=== PATIENT | male | born 1935 | race Caucasian/White ===

== ENCOUNTER 2017-11-19 19:34 | Inpatient (IN) | payer OTHER ==
[~2017-11-19] VITALS: Ht 182.9 cm; Wt 10.3 kg
[~2017-11-19 19:34] MED LIST: ALBUAER17 IN; FLUT100I IN; IPRASOL41 NEB; NOR10T PO; SIMV-13 PO; TAMS0.4C36 PO; WARF5TAB71 PO
[2017-11-19 20:10] LABS: Basophils # (auto) 0 uL; Basophils % (auto) 0.3 % (0.0-2.0); Eosinophils # (auto) 0 uL; Eosinophils % (auto) 0.1 % (0.0-7.0); Hematocrit 45.1 % (41.0-53.0); Hemoglobin 14.7 g/dL (13.5-17.5); Lymphocytes # (auto) 0.8 uL; Mean Corpuscular Hemoglobin 27.4 pg (28.0-32.0); Mean Corpuscular Hgb Conc. 32.7 g/dL (32.0-36.0); Mean Corpuscular Volume 83.8 fL (80.0-100.0); Monocytes # (auto) 0.6 uL; Monocytes % (auto) 6.4 % (0.0-12.0); Neutrophils # (auto) 7.7 uL; Neutrophils % (auto) 84.2 % (37.0-80.0); Nucleated Red Blood Cells % 0.1 %; Platelet Count (auto) 221 10^3/uL (140-450); Red Blood Cells 5.38 10^6/uL (4.5-5.90); White Blood Cell 9.1 10^3/uL (4.4-10.8)
[2017-11-19 20:18] LABS: INR 3.24 (0.9-1.15); Partial Thromboplastin Time 36.8 sec (22.64-33.71); Prothrombin Time 35.7 sec (9.37-12.3)
[2017-11-19 20:25] LABS: Albumin 3.3 g/dL (3.4-5.0); BUN/Creatinine Ratio 22.3; Bilirubin, Total 0.3 mg/dL (0.2-1.0); Calcium 8.9 mg/dL (8.5-10.1); Magnesium 2.4 mg/dL (1.6-2.6); Potassium 4.4 mmol/L (3.5-5.1); Total Protein 7.3 g/dL (6.4-8.2)
[2017-11-19] MEDS ORDERED: cefTRIAXone 1GM/10ml IVPUSH 10 ML IV ONE (22:15)
[2017-11-19] MEDS ORDERED: NITROGLYCERIN 0.4 MG SL TAB SL PRN (23:15)
[2017-11-19] MEDS ORDERED: ACETAMINOPHEN 500 MG TAB PO PRN (23:15)
[2017-11-19] MEDS ORDERED: IPRATROPIUM BROM 0.5 MG/2.5ML INH SOL NEB PRN (23:15)
[2017-11-19] MEDS ORDERED: ONDANSETRON HCL 4 MG/2 ML VIAL IV PRN (23:15)
[2017-11-19] MEDS ORDERED: MORPHINE SULFATE 4 MG/ML SYR/VIAL IV PRN (23:15)
[2017-11-19] MEDS ORDERED: HYDROcodone-ACET 5/325MG TAB PO PRN (23:15)
[2017-11-19] MEDS ORDERED: ALBUTEROL SULF 2.5 MG/0.5ML(0.5%) NEB SOLN NEB PRN (23:15)
[2017-11-19] MEDS ORDERED: SIMV-13 PO (23:28)
[2017-11-19] MEDS ORDERED: PANT1INJ3 IV (23:28)
[2017-11-19] MEDS ORDERED: AZIT250T7 PO (23:28)
[2017-11-19] MEDS ORDERED: PRO625LQ GT (23:28)
[2017-11-19] MEDS ORDERED: TAMS0.4C36 PO (23:28)
[2017-11-19] MEDS ORDERED: HYDR-4072 PO (23:28)
[2017-11-19] MEDS ORDERED: WARF1TAB36 PO (23:28)
[2017-11-19] MEDS ORDERED: PRE5T GT (23:28)
[2017-11-19] MEDS ORDERED: AZEL0.1S (23:29)
[2017-11-19] MEDS: ASPirin-EC 81 mg tab PO ONE ×2 (23:30→23:49)
[2017-11-19 23:37] VITALS: BP 182/77
[2017-11-20] VITALS (7 sets, daily range): BP systolic 128–168; BP diastolic 67–89
[2017-11-20] MEDS ORDERED: hydrALAZINE HCL 10 MG TAB PO SCH
[2017-11-20] MEDS ORDERED: hydrALAZINE HCL 10 MG TAB PO PRN (00:30)
[2017-11-20] MEDS ORDERED: cloNIDine 0.1 mg/24hr 7 DAY PATCH TD ONE (02:15)
[2017-11-20] MEDS ORDERED: cloNIDine HCL 0.1 MG TAB PO ONE (02:45)
[2017-11-20 06:57] LABS: Urine Bacteria NONE SEEN /hpf (None Seen); Urine Blood Negative /uL (Negative); Urine Specific Gravity 1.021 (1.001-1.035); Urine WBC 1 /hpf (0 - 3)
[2017-11-20 07:06] LABS: Basophils # (auto) 0 uL; Basophils % (auto) 0.1 % (0.0-2.0); Eosinophils # (auto) 0 uL; Hematocrit 39.2 % (41.0-53.0); Hemoglobin 12.8 g/dL (13.5-17.5); Lymphocytes # (auto) 0.9 uL; Lymphocytes % (auto) 9.6 % (10.0-50.0); Mean Corpuscular Hemoglobin 27.2 pg (28.0-32.0); Mean Corpuscular Hgb Conc. 32.7 g/dL (32.0-36.0); Mean Corpuscular Volume 83.1 fL (80.0-100.0); Monocytes # (auto) 0.6 uL; Monocytes % (auto) 6.4 % (0.0-12.0); Neutrophils # (auto) 7.6 uL; Neutrophils % (auto) 83.9 % (37.0-80.0); Platelet Count (auto) 204 10^3/uL (140-450); Red Blood Cells 4.72 10^6/uL (4.5-5.90); White Blood Cell 9.1 10^3/uL (4.4-10.8)
[2017-11-20 07:13] LABS: INR 3.33 (0.9-1.15); Partial Thromboplastin Time 36.9 sec (22.64-33.71); Prothrombin Time 36.7 sec (9.37-12.3)
[2017-11-20 07:24] LABS: BUN/Creatinine Ratio 25.9; Calcium 8.3 mg/dL (8.5-10.1); Potassium 4.5 mmol/L (3.5-5.1)
[2017-11-20] MEDS ORDERED: ASPirin-EC 81 mg tab PO SCH (10:00)
[2017-11-20] MEDS: AZITHROMYCIN 250 MG TAB PO SCH (11:11)
[2017-11-20] MEDS ORDERED: TAMSULOSIN HYDROCHLORIDE 0.4 MG CAP PO SCH (18:00)
[2017-11-20] MEDS ORDERED: ATORVASTATIN 20 MG TAB PO SCH (22:00)
[2017-11-21 05:00] VITALS: BP 146/79
[2017-11-21 08:00] VITALS: BP 152/87
[2017-11-21 09:23] LABS: Basophils # (auto) 0.1 uL; Basophils % (auto) 0.7 % (0.0-2.0); Eosinophils # (auto) 0.1 uL; Eosinophils % (auto) 1.6 % (0.0-7.0); Hemoglobin 13.5 g/dL (13.5-17.5); Lymphocytes % (auto) 22.6 % (10.0-50.0); Mean Corpuscular Hgb Conc. 32.2 g/dL (32.0-36.0); Mean Corpuscular Volume 83.7 fL (80.0-100.0); Monocytes # (auto) 0.7 uL; Monocytes % (auto) 7.9 % (0.0-12.0); Neutrophils % (auto) 67.2 % (37.0-80.0); Nucleated Red Blood Cells % 0.1 %; Platelet Count (auto) 211 10^3/uL (140-450); Red Blood Cells 5.01 10^6/uL (4.5-5.90); Red Cell Distribution Width 16.6 % (11.8-14.3); White Blood Cell 8.9 10^3/uL (4.4-10.8)
[2017-11-21 09:33] LABS: INR 2.13 (0.9-1.15); Prothrombin Time 23.4 sec (9.37-12.3)
[2017-11-21] MEDS: AZITHROMYCIN 250 MG TAB PO SCH (10:39)
[2017-11-21 10:57] VITALS: BP 152/87
[2017-11-21 12:00] VITALS: BP 148/72
[2017-11-21] MEDS ORDERED: WARFARIN SODIUM 2.5 MG TAB PO ONE (17:00)
== END 2017-11-21 16:45 | disposition home or self-care (01) | DRG 280 ==
LOC: ER 19:35 → TELE 19:36 → CENTRAL 23:42 → TELE-CENTR 11-20 01:44
PROVIDERS: ADMIT Nurse Practitioner Family; ATTEND Family Medicine
DX: I21.4 Non-ST elevation (NSTEMI) myocardial infarction (principal); J18.1 Lobar pneumonia, unspecified organism; J44.0 Chronic obstructive pulmonary disease with (acute) lower respiratory infection; I11.0 Hypertensive heart disease with heart failure; I50.42 Chronic combined systolic (congestive) and diastolic (congestive) heart failure; J44.1 Chronic obstructive pulmonary disease with (acute) exacerbation; Z99.81 Dependence on supplemental oxygen; I35.0 Nonrheumatic aortic (valve) stenosis; E78.00 Pure hypercholesterolemia, unspecified; E78.5 Hyperlipidemia, unspecified; K21.9 Gastro-esophageal reflux disease without esophagitis; N40.0 Benign prostatic hyperplasia without lower urinary tract symptoms; Z79.01 Long term (current) use of anticoagulants; Z79.899 Other long term (current) drug therapy; Z80.42 Family history of malignant neoplasm of prostate; Z86.711 Personal history of pulmonary embolism; Z86.718 Personal history of other venous thrombosis and embolism; Z87.891 Personal history of nicotine dependence; Z82.49 Family history of ischemic heart disease and other diseases of the circulatory system; Z79.2 Long term (current) use of antibiotics
CPT/HCPCS: 36415; 71045; 80048; 80053; 81001; 83605; 83735; 83880; 84484; 85025; 85610; 85730; 87040; 93005; 93306; 94761; 96374

== ENCOUNTER 2018-06-16 09:39 | Inpatient (IN) | payer OTHER ==
[~2018-06-16] VITALS: Ht 182.9 cm; Wt 105.8 kg
[~2018-06-16 09:39] MED LIST changes: +AZEL0.1S; +AZIT250T7 PO; +HYDR-4072 PO; -NOR10T PO; +PANT1INJ3 IV; +PRE5T GT; +PRO625LQ GT; +WARF1TAB36 PO; -WARF5TAB71 PO
[2018-06-16 11:38] LABS: Basophils # (auto) 0.1 uL; Eosinophils # (auto) 0.1 uL; Eosinophils % (auto) 0.6 % (0.0-7.0); Mean Corpuscular Hemoglobin 25.9 pg (28.0-32.0); Mean Corpuscular Volume 81.2 fL (80.0-100.0)
[2018-06-16 11:40] LABS: Basophils % (auto) 1.1 % (0.0-2.0); Hematocrit 47.5 % (41.0-53.0); Hemoglobin 15.2 g/dL (13.5-17.5); Monocytes # (auto) 0.9 uL; Monocytes % (auto) 7.6 % (0.0-12.0); Neutrophils # (auto) 9.4 uL; Neutrophils % (auto) 81.7 % (37.0-80.0); Nucleated Red Blood Cells % 0.1 %; Platelet Count (auto) 230 10^3/uL (140-450); Red Blood Cells 5.85 10^6/uL (4.5-5.90); Red Cell Distribution Width 17.3 % (11.8-14.3); White Blood Cell 11.5 10^3/uL (4.4-10.8)
[2018-06-16 12:06] LABS: Alanine Aminotransferase 14 U/L (16-61); Albumin 3.3 g/dL (3.4-5.0); Alkaline Phosphatase 79 U/L (45-117); Anion Gap 5 (5-15); Aspartate Aminotransferase 12 U/L (15-37); BUN/Creatinine Ratio 14.2; Bilirubin, Total 0.9 mg/dL (0.2-1.0); Blood Urea Nitrogen 18 mg/dL (7-18); Calcium 8.5 mg/dL (8.5-10.1); Carbon Dioxide 25 mmol/L (21-32); Chloride 107 mmol/L (98-107); GFR African American 69 mL/min; GFR Non-African American 57 mL/min; Glucose 125 mg/dL (74-106); Potassium 4.2 mmol/L (3.5-5.1); Sodium 137 mmol/L (136-145); Total Protein 7.5 g/dL (6.4-8.2)
[2018-06-16] MEDS ORDERED: AZITHROMYCIN 500MG/ 250ML 250 ML IV ONE (13:00)
[2018-06-16] MEDS ORDERED: cefTRIAXone 1GM/10ml IVPUSH 10 ML IV ONE (13:00)
[2018-06-16] MEDS ORDERED: PANTOPRAZOLE 40 MG TAB PO ONE (13:00)
[2018-06-16] MEDS ORDERED: predniSONE 5 MG TAB PO ONE (13:00)
[2018-06-16] MEDS ORDERED: ACETAMINOPHEN 325 MG TAB PO PRN (13:15)
[2018-06-16] MEDS ORDERED: NITROGLYCERIN 0.4 MG SL TAB SL PRN (13:15)
[2018-06-16] MEDS ORDERED: MORPHINE SULFATE 4 MG/ML SYR/VIAL IV PRN ×2 (13:15)
[2018-06-16] MEDS ORDERED: ASPirin-EC 81 mg tab PO ONE (13:15)
[2018-06-16] MEDS ORDERED: DOCUSATE SOD 100 MG CAP PO PRN (13:15)
[2018-06-16 13:52] VITALS: BP 153/91
[2018-06-16] MEDS ORDERED: WARF5TAB71 PO (14:35)
[2018-06-16] MEDS: SODIUM CHLOR 0.9% PF (SALINE LOCK) 10ML VIAL/SYR IV SCH ×2 (14:52→22:05)
[2018-06-16 15:30] LABS: INR 2.54 (0.9-1.15); Partial Thromboplastin Time 42.5 sec (23.78-33.04); Prothrombin Time 25.8 sec (9.27-12.13)
[2018-06-16 15:37] LABS: Urine Bacteria NONE SEEN /hpf (None Seen); Urine Blood TRACE /uL (Negative); Urine Mucus FEW (None Seen); Urine Specific Gravity 1.025 (1.001-1.035); Urine WBC 9 /hpf (0 - 3)
[2018-06-16] MEDS ORDERED: WARFARIN SODIUM 5 MG TAB PO ONE (17:00)
[2018-06-16] MEDS: IPRATROPIUM BROM 0.5 MG/2.5ML INH SOL NEB SCH (18:00)
[2018-06-16] MEDS: ALBUTEROL SULF 2.5 MG/0.5ML(0.5%) NEB SOLN NEB SCH (18:00)
[2018-06-16] MEDS: TAMSULOSIN HYDROCHLORIDE 0.4 MG CAP PO SCH (18:20)
[2018-06-16 21:30] VITALS: BP 148/81
[2018-06-16 22:00] VITALS: BP 156/81
[2018-06-16] MEDS: CARVEDILOL 3.125 MG TAB PO SCH (22:04)
[2018-06-16] MEDS: ATORVASTATIN 20 MG TAB PO SCH (22:05)
[2018-06-16] MEDS ORDERED: CARV6.2551 PO (23:05)
[2018-06-16] MEDS ORDERED: ASPI81TA27 PO (23:05)
[2018-06-17] MEDS: ALBUTEROL SULF 2.5 MG/0.5ML(0.5%) NEB SOLN NEB SCH ×5 (00:43→23:57)
[2018-06-17] MEDS: IPRATROPIUM BROM 0.5 MG/2.5ML INH SOL NEB SCH ×5 (00:43→23:57)
[2018-06-17] MEDS: ONDANSETRON HCL 4 MG/2 ML VIAL IV PRN ×2 (04:36→12:11)
[2018-06-17] MEDS: HYDROcodone-ACET 5/325MG TAB PO PRN ×2 (04:46→09:52)
[2018-06-17 05:00] VITALS: BP 135/85
[2018-06-17] MEDS: SODIUM CHLOR 0.9% PF (SALINE LOCK) 10ML VIAL/SYR IV SCH ×3 (05:45→21:50)
[2018-06-17 06:02] LABS: INR 2.78 (0.9-1.15); Prothrombin Time 28.1 sec (9.27-12.13)
[2018-06-17 06:07] LABS: Basophils # (auto) 0 uL; Eosinophils # (auto) 0.1 uL; Hemoglobin 13.3 g/dL (13.5-17.5); Mean Corpuscular Hemoglobin 26.6 pg (28.0-32.0); Monocytes # (auto) 0.9 uL; Neutrophils # (auto) 7.4 uL; White Blood Cell 9.6 10^3/uL (4.4-10.8)
[2018-06-17 06:08] LABS: Albumin 2.5 g/dL (3.4-5.0); BUN/Creatinine Ratio 20.4; Calcium 7.5 mg/dL (8.5-10.1); Potassium 4.2 mmol/L (3.5-5.1)
[2018-06-17 06:09] LABS: Basophils % (auto) 0.4 % (0.0-2.0); Eosinophils % (auto) 0.8 % (0.0-7.0); Hematocrit 40.3 % (41.0-53.0); Lymphocytes # (auto) 1.2 uL; Mean Corpuscular Volume 80.5 fL (80.0-100.0); Monocytes % (auto) 9.8 % (0.0-12.0); Red Cell Distribution Width 17.3 % (11.8-14.3)
[2018-06-17 06:10] LABS: Platelet Count (auto) 190 10^3/uL (140-450)
[2018-06-17 06:11] LABS: Bilirubin, Total 0.6 mg/dL (0.2-1.0); Total Protein 6.1 g/dL (6.4-8.2)
[2018-06-17 09:00] VITALS: BP 181/90
[2018-06-17] MEDS: cloNIDine HCL 0.1 MG TAB PO PRN (09:14)
[2018-06-17] MEDS: cefTRIAXone 1GM/10ml IVPUSH 10 ML IV SCH (09:15)
[2018-06-17] MEDS: predniSONE 5 MG TAB PO SCH (09:37)
[2018-06-17] MEDS: ASPirin-EC 81 mg tab PO SCH (09:37)
[2018-06-17] MEDS: MULTIPLE VITAMIN TAB PO SCH (09:38)
[2018-06-17] MEDS: CARVEDILOL 3.125 MG TAB PO SCH ×2 (09:38→10:38)
[2018-06-17] MEDS: PANTOPRAZOLE 40 MG TAB PO SCH (09:38)
[2018-06-17] MEDS: AZITHROMYCIN 500MG/ 250ML 250 ML IV SCH (09:43)
[2018-06-17] MEDS ORDERED: PATIENTS OWN MEDICATION PO SCH (10:00)
[2018-06-17] MEDS: Ensure Enlive Strawberry 8oz Bottle PO SCH ×2 (12:00→18:00)
[2018-06-17] MEDS: HYDROcodone-ACET 10/325MG TAB PO PRN ×2 (12:06→21:50)
[2018-06-17 13:00] VITALS: BP 148/76
[2018-06-17] MEDS ORDERED: UMEC1AER IN (15:41)
[2018-06-17] MEDS ORDERED: CARV6.2551 PO (15:45)
[2018-06-17] MEDS ORDERED: PANT40T PO (15:54)
[2018-06-17 17:00] VITALS: BP 130/78
[2018-06-17] MEDS ORDERED: WARFARIN SODIUM 5 MG TAB PO ONE (17:00)
[2018-06-17] MEDS: TAMSULOSIN HYDROCHLORIDE 0.4 MG CAP PO SCH (18:12)
[2018-06-17] MEDS: ATORVASTATIN 20 MG TAB PO SCH (21:50)
[2018-06-17 22:00] VITALS: BP 159/89
[2018-06-17] MEDS: TEMAZEPAM 15 MG CAP PO PRN (23:48)
[2018-06-18 05:00] VITALS: BP 150/78
[2018-06-18] MEDS: SODIUM CHLOR 0.9% PF (SALINE LOCK) 10ML VIAL/SYR IV SCH ×3 (05:31→22:00)
[2018-06-18] MEDS: ALBUTEROL SULF 2.5 MG/0.5ML(0.5%) NEB SOLN NEB SCH ×3 (06:20→19:09)
[2018-06-18] MEDS: IPRATROPIUM BROM 0.5 MG/2.5ML INH SOL NEB SCH ×3 (06:20→19:09)
[2018-06-18] MEDS: HYDROcodone-ACET 10/325MG TAB PO PRN ×2 (06:42→11:23)
[2018-06-18 08:00] LABS: Basophils # (auto) 0 uL; Basophils % (auto) 0.6 % (0.0-2.0); Eosinophils # (auto) 0.3 uL; Eosinophils % (auto) 3.7 % (0.0-7.0); Hematocrit 40.8 % (41.0-53.0); Hemoglobin 13.3 g/dL (13.5-17.5); Lymphocytes # (auto) 1.4 uL; Lymphocytes % (auto) 17.7 % (10.0-50.0); Mean Corpuscular Hemoglobin 26.3 pg (28.0-32.0); Mean Corpuscular Hgb Conc. 32.7 g/dL (32.0-36.0); Mean Corpuscular Volume 80.4 fL (80.0-100.0); Monocytes # (auto) 0.8 uL; Monocytes % (auto) 10.2 % (0.0-12.0); Neutrophils # (auto) 5.5 uL; Neutrophils % (auto) 67.8 % (37.0-80.0); Nucleated Red Blood Cells % 0.1 %; Platelet Count (auto) 191 10^3/uL (140-450); Red Blood Cells 5.07 10^6/uL (4.5-5.90); Red Cell Distribution Width 17.4 % (11.8-14.3); White Blood Cell 8.1 10^3/uL (4.4-10.8)
[2018-06-18 08:16] LABS: INR 3.7 (0.9-1.15); Partial Thromboplastin Time 41.3 sec (23.78-33.04); Prothrombin Time 36.8 sec (9.27-12.13)
[2018-06-18 08:26] LABS: BUN/Creatinine Ratio 21.3; Calcium 8.1 mg/dL (8.5-10.1); Potassium 4.2 mmol/L (3.5-5.1)
[2018-06-18 09:00] VITALS: BP 142/71
[2018-06-18] MEDS: MULTIPLE VITAMIN TAB PO SCH (09:53)
[2018-06-18] MEDS: PANTOPRAZOLE 40 MG TAB PO SCH (09:53)
[2018-06-18] MEDS: ASPirin-EC 81 mg tab PO SCH (09:53)
[2018-06-18] MEDS: Ensure Enlive Strawberry 8oz Bottle PO SCH ×3 (09:53→18:00)
[2018-06-18] MEDS: cefTRIAXone 1GM/10ml IVPUSH 10 ML IV SCH (09:53)
[2018-06-18] MEDS: predniSONE 5 MG TAB PO SCH (09:54)
[2018-06-18] MEDS: AZITHROMYCIN 500MG/ 250ML 250 ML IV SCH (09:54)
[2018-06-18] MEDS ORDERED: CARVEDILOL 3.125 MG TAB PO SCH (10:00)
[2018-06-18] MEDS: ONDANSETRON HCL 4 MG/2 ML VIAL IV PRN (12:22)
[2018-06-18 13:00] VITALS: BP_SYST 141; BP_SYST 144; BP_DIAS 71; BP_DIAS 74
[2018-06-18] MEDS ORDERED: LISINOPRIL 5 MG TAB PO ONE (13:30)
[2018-06-18 17:00] VITALS: BP 135/64
[2018-06-18] MEDS: TAMSULOSIN HYDROCHLORIDE 0.4 MG CAP PO SCH (17:56)
[2018-06-18] MEDS: ACETYLCYSTEINE 10 %(100MG/ML) SOL 4ML NEB SCH (19:09)
[2018-06-18 21:55] VITALS: BP 130/71
[2018-06-18] MEDS: ATORVASTATIN 20 MG TAB PO SCH (22:54)
[2018-06-19] MEDS: IPRATROPIUM BROM 0.5 MG/2.5ML INH SOL NEB SCH ×4 (00:27→18:32)
[2018-06-19] MEDS: ALBUTEROL SULF 2.5 MG/0.5ML(0.5%) NEB SOLN NEB SCH ×4 (00:27→18:32)
[2018-06-19] MEDS: ACETYLCYSTEINE 10 %(100MG/ML) SOL 4ML NEB SCH ×4 (00:27→18:33)
[2018-06-19] MEDS: cloNIDine HCL 0.1 MG TAB PO PRN (04:53)
[2018-06-19] MEDS: HYDROcodone-ACET 10/325MG TAB PO PRN ×3 (04:54→22:00)
[2018-06-19 05:00] VITALS: BP 162/84
[2018-06-19 06:47] LABS: Partial Thromboplastin Time 42.4 sec (23.78-33.04); Prothrombin Time 40.4 sec (9.27-12.13)
[2018-06-19 06:52] LABS: INR 4.09 (0.9-1.15)
[2018-06-19 08:00] VITALS: BP 109/73
[2018-06-19 09:00] VITALS: BP 109/73
[2018-06-19] MEDS: SODIUM CHLOR 0.9% PF (SALINE LOCK) 10ML VIAL/SYR IV SCH ×3 (09:57→21:59)
[2018-06-19] MEDS: cefTRIAXone 1GM/10ml IVPUSH 10 ML IV SCH (09:57)
[2018-06-19] MEDS: AZITHROMYCIN 500MG/ 250ML 250 ML IV SCH (09:58)
[2018-06-19] MEDS: Ensure Enlive Strawberry 8oz Bottle PO SCH ×3 (09:58→18:17)
[2018-06-19] MEDS: LISINOPRIL 5 MG TAB PO SCH (09:59)
[2018-06-19] MEDS: PANTOPRAZOLE 40 MG TAB PO SCH (09:59)
[2018-06-19] MEDS: MULTIPLE VITAMIN TAB PO SCH (09:59)
[2018-06-19] MEDS: ASPirin-EC 81 mg tab PO SCH (09:59)
[2018-06-19] MEDS ORDERED: LEVOFLOXACIN 750MG 150 ML IV SCH (10:00)
[2018-06-19] MEDS: predniSONE 5 MG TAB PO SCH (10:08)
[2018-06-19] MEDS ORDERED: MORPHINE SULFATE 4 MG/ML SYR/VIAL IV PRN ×2 (10:45)
[2018-06-19 13:00] VITALS: BP 130/73
[2018-06-19 17:00] VITALS: BP 129/88
[2018-06-19] MEDS: TAMSULOSIN HYDROCHLORIDE 0.4 MG CAP PO SCH (18:17)
[2018-06-19] MEDS: ATORVASTATIN 20 MG TAB PO SCH (21:59)
[2018-06-19 22:00] VITALS: BP 159/77
[2018-06-20] VITALS (7 sets, daily range): BP systolic 127–164; BP diastolic 65–95
[2018-06-20] MEDS: IPRATROPIUM BROM 0.5 MG/2.5ML INH SOL NEB SCH ×4 (00:04→18:51)
[2018-06-20] MEDS: ALBUTEROL SULF 2.5 MG/0.5ML(0.5%) NEB SOLN NEB SCH ×4 (00:04→18:51)
[2018-06-20] MEDS: ACETYLCYSTEINE 10 %(100MG/ML) SOL 4ML NEB SCH ×4 (00:11→18:51)
[2018-06-20] MEDS: TEMAZEPAM 15 MG CAP PO PRN (01:57)
[2018-06-20] MEDS: SODIUM CHLOR 0.9% PF (SALINE LOCK) 10ML VIAL/SYR IV SCH ×3 (05:23→21:09)
[2018-06-20 07:20] LABS: INR 2.43 (0.9-1.15); Partial Thromboplastin Time 39.2 sec (23.78-33.04); Prothrombin Time 24.7 sec (9.27-12.13)
[2018-06-20] MEDS: cefTRIAXone 1GM/10ml IVPUSH 10 ML IV SCH (09:48)
[2018-06-20] MEDS: AZITHROMYCIN 500MG/ 250ML 250 ML IV SCH (09:49)
[2018-06-20] MEDS: Ensure Enlive Strawberry 8oz Bottle PO SCH ×3 (09:49→18:32)
[2018-06-20] MEDS: predniSONE 5 MG TAB PO SCH (09:50)
[2018-06-20] MEDS: LISINOPRIL 5 MG TAB PO SCH (09:50)
[2018-06-20] MEDS: PANTOPRAZOLE 40 MG TAB PO SCH (09:50)
[2018-06-20] MEDS: MULTIPLE VITAMIN TAB PO SCH (09:51)
[2018-06-20] MEDS: ASPirin-EC 81 mg tab PO SCH (09:51)
[2018-06-20] MEDS: HYDROcodone-ACET 10/325MG TAB PO PRN (16:20)
[2018-06-20] MEDS ORDERED: WARFARIN SODIUM 2.5 MG TAB PO ONE (17:00)
[2018-06-20] MEDS: TAMSULOSIN HYDROCHLORIDE 0.4 MG CAP PO SCH (18:32)
[2018-06-20] MEDS: ATORVASTATIN 20 MG TAB PO SCH (21:09)
[2018-06-20] MEDS ORDERED: FLUTICASONE PROP NASAL SPR 0.05 % (50MCG) 16GM EACHNOSTRI SCH (22:00)
[2018-06-21] MEDS: IPRATROPIUM BROM 0.5 MG/2.5ML INH SOL NEB SCH ×4 (00:16→18:26)
[2018-06-21] MEDS: ALBUTEROL SULF 2.5 MG/0.5ML(0.5%) NEB SOLN NEB SCH ×4 (00:17→18:26)
[2018-06-21] MEDS: ACETYLCYSTEINE 10 %(100MG/ML) SOL 4ML NEB SCH ×4 (00:17→18:26)
[2018-06-21 05:45] VITALS: BP 156/96
[2018-06-21] MEDS: SODIUM CHLOR 0.9% PF (SALINE LOCK) 10ML VIAL/SYR IV SCH ×3 (06:03→21:33)
[2018-06-21 07:08] LABS: INR 1.79 (0.9-1.15); Prothrombin Time 18.5 sec (9.27-12.13)
[2018-06-21 08:00] VITALS: BP 179/84
[2018-06-21] MEDS: Ensure Enlive Strawberry 8oz Bottle PO SCH ×3 (08:00→18:04)
[2018-06-21] MEDS: cefTRIAXone 1GM/10ml IVPUSH 10 ML IV SCH (08:43)
[2018-06-21 09:06] VITALS: BP 179/84
[2018-06-21] MEDS: AZITHROMYCIN 500MG/ 250ML 250 ML IV SCH (09:52)
[2018-06-21] MEDS: predniSONE 5 MG TAB PO SCH (09:53)
[2018-06-21] MEDS: PANTOPRAZOLE 40 MG TAB PO SCH (09:53)
[2018-06-21] MEDS: ASPirin-EC 81 mg tab PO SCH (09:53)
[2018-06-21] MEDS: MULTIPLE VITAMIN TAB PO SCH (09:54)
[2018-06-21] MEDS: LISINOPRIL 5 MG TAB PO SCH (09:54)
[2018-06-21] MEDS: cloNIDine HCL 0.1 MG TAB PO PRN (09:55)
[2018-06-21 13:00] VITALS: BP 118/69
[2018-06-21] MEDS: HYDROcodone-ACET 10/325MG TAB PO PRN (16:45)
[2018-06-21 17:00] VITALS: BP 142/92
[2018-06-21] MEDS ORDERED: WARFARIN SODIUM 5 MG TAB PO ONE (17:00)
[2018-06-21] MEDS: TAMSULOSIN HYDROCHLORIDE 0.4 MG CAP PO SCH (17:42)
[2018-06-21] MEDS: FLUTICASONE PROP NASAL SPR 0.05 % (50MCG) 16GM EACHNOSTRI PRN (17:43)
[2018-06-21] MEDS: ATORVASTATIN 20 MG TAB PO SCH (21:32)
[2018-06-21 22:00] VITALS: BP 141/76
[2018-06-22] VITALS (7 sets, daily range): BP systolic 98–156; BP diastolic 61–88
[2018-06-22] MEDS: FLUTICASONE PROP NASAL SPR 0.05 % (50MCG) 16GM EACHNOSTRI PRN ×2 (00:31→19:13)
[2018-06-22] MEDS: IPRATROPIUM BROM 0.5 MG/2.5ML INH SOL NEB SCH ×4 (00:39→18:49)
[2018-06-22] MEDS: ALBUTEROL SULF 2.5 MG/0.5ML(0.5%) NEB SOLN NEB SCH ×4 (00:40→18:49)
[2018-06-22] MEDS: ACETYLCYSTEINE 10 %(100MG/ML) SOL 4ML NEB SCH ×4 (00:40→18:50)
[2018-06-22] MEDS: HYDROcodone-ACET 10/325MG TAB PO PRN ×2 (03:29→11:34)
[2018-06-22] MEDS: SODIUM CHLOR 0.9% PF (SALINE LOCK) 10ML VIAL/SYR IV SCH ×3 (05:17→19:16)
[2018-06-22 06:28] LABS: Basophils # (auto) 0.1 uL; Basophils % (auto) 0.6 % (0.0-2.0); Eosinophils # (auto) 0.2 uL; Eosinophils % (auto) 2.4 % (0.0-7.0); Hemoglobin 12.7 g/dL (13.5-17.5); Mean Corpuscular Hgb Conc. 32.8 g/dL (32.0-36.0); Monocytes # (auto) 0.6 uL; Nucleated Red Blood Cells % 0.1 %; White Blood Cell 8.8 10^3/uL (4.4-10.8)
[2018-06-22 06:32] LABS: Hematocrit 38.8 % (41.0-53.0); Lymphocytes # (auto) 2.1 uL; Lymphocytes % (auto) 23.7 % (10.0-50.0); Mean Corpuscular Hemoglobin 26.5 pg (28.0-32.0); Mean Corpuscular Volume 80.6 fL (80.0-100.0); Monocytes % (auto) 7.1 % (0.0-12.0); Neutrophils # (auto) 5.9 uL; Neutrophils % (auto) 66.2 % (37.0-80.0); Platelet Count (auto) 215 10^3/uL (140-450); Red Blood Cells 4.81 10^6/uL (4.5-5.90); Red Cell Distribution Width 17.4 % (11.8-14.3)
[2018-06-22 06:40] LABS: INR 1.6 (0.9-1.15); Partial Thromboplastin Time 30.1 sec (23.78-33.04); Prothrombin Time 16.7 sec (9.27-12.13)
[2018-06-22 06:47] LABS: Albumin 2.5 g/dL (3.4-5.0); BUN/Creatinine Ratio 28.4; Calcium 8.1 mg/dL (8.5-10.1); Potassium 4.5 mmol/L (3.5-5.1)
[2018-06-22 06:50] LABS: Bilirubin, Total 0.3 mg/dL (0.2-1.0); Total Protein 5.7 g/dL (6.4-8.2)
[2018-06-22] MEDS: Ensure Enlive Strawberry 8oz Bottle PO SCH ×3 (08:55→18:11)
[2018-06-22] MEDS: ASPirin-EC 81 mg tab PO SCH (10:07)
[2018-06-22] MEDS: PANTOPRAZOLE 40 MG TAB PO SCH (10:07)
[2018-06-22] MEDS: MULTIPLE VITAMIN TAB PO SCH (10:07)
[2018-06-22] MEDS: predniSONE 5 MG TAB PO SCH (10:07)
[2018-06-22] MEDS: LISINOPRIL 5 MG TAB PO SCH (10:07)
[2018-06-22] MEDS: cefTRIAXone 1GM/10ml IVPUSH 10 ML IV SCH (10:08)
[2018-06-22] MEDS: AZITHROMYCIN 500MG/ 250ML 250 ML IV SCH (10:10)
[2018-06-22] MEDS ORDERED: WARFARIN SODIUM 2 MG TAB PO ONE (17:00)
[2018-06-22] MEDS: TAMSULOSIN HYDROCHLORIDE 0.4 MG CAP PO SCH (18:10)
[2018-06-22] MEDS: ATORVASTATIN 20 MG TAB PO SCH (19:13)
[2018-06-23] VITALS (9 sets, daily range): BP systolic 147–165; BP diastolic 83–96
[2018-06-23] MEDS: IPRATROPIUM BROM 0.5 MG/2.5ML INH SOL NEB SCH ×4 (00:34→19:34)
[2018-06-23] MEDS: ACETYLCYSTEINE 10 %(100MG/ML) SOL 4ML NEB SCH ×4 (00:34→19:34)
[2018-06-23] MEDS: ALBUTEROL SULF 2.5 MG/0.5ML(0.5%) NEB SOLN NEB SCH ×4 (00:34→19:34)
[2018-06-23] MEDS: SODIUM CHLOR 0.9% PF (SALINE LOCK) 10ML VIAL/SYR IV SCH ×3 (06:28→21:23)
[2018-06-23 06:37] LABS: INR 1.6 (0.9-1.15); Prothrombin Time 16.7 sec (9.27-12.13)
[2018-06-23] MEDS: Ensure Enlive Strawberry 8oz Bottle PO SCH ×3 (08:00→17:12)
[2018-06-23] MEDS: AZITHROMYCIN 500MG/ 250ML 250 ML IV SCH (09:27)
[2018-06-23] MEDS: cefTRIAXone 1GM/10ml IVPUSH 10 ML IV SCH (09:27)
[2018-06-23] MEDS: PANTOPRAZOLE 40 MG TAB PO SCH (09:28)
[2018-06-23] MEDS: ASPirin-EC 81 mg tab PO SCH (09:28)
[2018-06-23] MEDS: MULTIPLE VITAMIN TAB PO SCH (09:28)
[2018-06-23] MEDS: predniSONE 5 MG TAB PO SCH (09:29)
[2018-06-23] MEDS: LISINOPRIL 5 MG TAB PO SCH (09:29)
[2018-06-23 09:53] LABS: Basophils # (auto) 0.1 uL; Mean Corpuscular Volume 80.8 fL (80.0-100.0); Monocytes # (auto) 0.6 uL
[2018-06-23 09:56] LABS: Basophils % (auto) 0.9 % (0.0-2.0); Eosinophils # (auto) 0.3 uL; Hemoglobin 12.8 g/dL (13.5-17.5); Lymphocytes # (auto) 2.1 uL; Lymphocytes % (auto) 23.5 % (10.0-50.0); Mean Corpuscular Hemoglobin 26.5 pg (28.0-32.0); Mean Corpuscular Hgb Conc. 32.8 g/dL (32.0-36.0); Monocytes % (auto) 6.3 % (0.0-12.0); Neutrophils # (auto) 5.8 uL; Neutrophils % (auto) 66.3 % (37.0-80.0); Nucleated Red Blood Cells % 0.1 %; Platelet Count (auto) 219 10^3/uL (140-450); Red Blood Cells 4.83 10^6/uL (4.5-5.90); Red Cell Distribution Width 17.6 % (11.8-14.3); White Blood Cell 8.8 10^3/uL (4.4-10.8)
[2018-06-23 10:09] LABS: Chloride 105 mmol/L (98-107); Potassium 4.3 mmol/L (3.5-5.1); Sodium 141 mmol/L (136-145)
[2018-06-23 10:22] LABS: Albumin 2.4 g/dL (3.4-5.0); Anion Gap 7 (5-15); BUN/Creatinine Ratio 30.2; Blood Urea Nitrogen 35 mg/dL (7-18); Calcium 7.9 mg/dL (8.5-10.1); Carbon Dioxide 29 mmol/L (21-32); GFR African American 77 mL/min; GFR Non-African American 64 mL/min; Glucose 117 mg/dL (74-106)
[2018-06-23 10:35] LABS: Alanine Aminotransferase 25 U/L (16-61); Alkaline Phosphatase 50 U/L (45-117); Aspartate Aminotransferase 12 U/L (15-37); Bilirubin, Total 0.3 mg/dL (0.2-1.0); Total Protein 5.5 g/dL (6.4-8.2)
[2018-06-23] MEDS: HYDROcodone-ACET 10/325MG TAB PO PRN ×2 (11:28→20:05)
[2018-06-23] MEDS ORDERED: WARFARIN SODIUM 2 MG TAB PO ONE (17:00)
[2018-06-23] MEDS: TAMSULOSIN HYDROCHLORIDE 0.4 MG CAP PO SCH (17:23)
[2018-06-23] MEDS: FLUTICASONE PROP NASAL SPR 0.05 % (50MCG) 16GM EACHNOSTRI PRN (17:24)
[2018-06-23] MEDS: ATORVASTATIN 20 MG TAB PO SCH (21:23)
[2018-06-23] MEDS: cloNIDine HCL 0.1 MG TAB PO PRN (21:24)
[2018-06-24] MEDS: ACETYLCYSTEINE 10 %(100MG/ML) SOL 4ML NEB SCH ×2 (00:39→07:05)
[2018-06-24] MEDS: IPRATROPIUM BROM 0.5 MG/2.5ML INH SOL NEB SCH ×2 (00:39→07:05)
[2018-06-24] MEDS: ALBUTEROL SULF 2.5 MG/0.5ML(0.5%) NEB SOLN NEB SCH ×2 (00:39→07:05)
[2018-06-24] MEDS: FLUTICASONE PROP NASAL SPR 0.05 % (50MCG) 16GM EACHNOSTRI PRN (04:02)
[2018-06-24] MEDS: HYDROcodone-ACET 10/325MG TAB PO PRN (04:11)
[2018-06-24 05:07] VITALS: BP 173/78
[2018-06-24] MEDS: SODIUM CHLOR 0.9% PF (SALINE LOCK) 10ML VIAL/SYR IV SCH (06:24)
[2018-06-24] MEDS: cloNIDine HCL 0.1 MG TAB PO PRN (06:38)
[2018-06-24 07:20] LABS: INR 1.92 (0.9-1.15); Partial Thromboplastin Time 30.6 sec (23.78-33.04); Prothrombin Time 19.8 sec (9.27-12.13)
[2018-06-24] MEDS: Ensure Enlive Strawberry 8oz Bottle PO SCH ×2 (07:51→12:00)
[2018-06-24 09:00] VITALS: BP 159/88
[2018-06-24] MEDS: cefTRIAXone 1GM/10ml IVPUSH 10 ML IV SCH (10:23)
[2018-06-24] MEDS: LISINOPRIL 5 MG TAB PO SCH (10:24)
[2018-06-24] MEDS: PANTOPRAZOLE 40 MG TAB PO SCH (10:24)
[2018-06-24] MEDS: predniSONE 5 MG TAB PO SCH (10:25)
[2018-06-24] MEDS: MULTIPLE VITAMIN TAB PO SCH (10:25)
[2018-06-24] MEDS: ASPirin-EC 81 mg tab PO SCH (10:25)
[2018-06-24] MEDS ORDERED: CEPH-37 PO (10:56)
[2018-06-24] MEDS ORDERED: LISI-275 PO (10:56)
[2018-06-24 12:38] VITALS: BP 119/63
[2018-06-24] MEDS ORDERED: WARFARIN SODIUM 2 MG TAB PO ONE (17:00)
== END 2018-06-24 13:45 | disposition home or self-care (01) | DRG 871 ==
LOC: ER 09:39 → TELE 09:40 → TELE-WESTW 18:52
PROVIDERS: ADMIT Internal Medicine; ATTEND Internal Medicine
DX: A41.9 Sepsis, unspecified organism (principal); J18.1 Lobar pneumonia, unspecified organism; J96.20 Acute and chronic respiratory failure, unspecified whether with hypoxia or hypercapnia; J45.901 Unspecified asthma with (acute) exacerbation; J44.1 Chronic obstructive pulmonary disease with (acute) exacerbation; J44.0 Chronic obstructive pulmonary disease with (acute) lower respiratory infection; J98.11 Atelectasis; E44.0 Moderate protein-calorie malnutrition; B96.1 Klebsiella pneumoniae [K. pneumoniae] as the cause of diseases classified elsewhere; I25.2 Old myocardial infarction; N40.0 Benign prostatic hyperplasia without lower urinary tract symptoms; E78.5 Hyperlipidemia, unspecified; K21.9 Gastro-esophageal reflux disease without esophagitis; I70.90 Unspecified atherosclerosis; N18.3 Chronic kidney disease, stage 3 (moderate); D89.9 Disorder involving the immune mechanism, unspecified; T45.515A Adverse effect of anticoagulants, initial encounter; R00.1 Bradycardia, unspecified; I25.10 Atherosclerotic heart disease of native coronary artery without angina pectoris; I12.9 Hypertensive chronic kidney disease with stage 1 through stage 4 chronic kidney disease, or unspecified chronic kidney disease; Z68.31 Body mass index [BMI] 31.0-31.9, adult; Z98.41 Cataract extraction status, right eye; Z98.42 Cataract extraction status, left eye; Z87.891 Personal history of nicotine dependence; Z87.01 Personal history of pneumonia (recurrent); Z85.51 Personal history of malignant neoplasm of bladder; Z90.89 Acquired absence of other organs; Z82.49 Family history of ischemic heart disease and other diseases of the circulatory system; Z86.718 Personal history of other venous thrombosis and embolism; Z86.711 Personal history of pulmonary embolism; Y92.89 Other specified places as the place of occurrence of the external cause
CPT/HCPCS: 36415; 71046; 71250; 80048; 80053; 81001; 83605; 83735; 83880; 84484; 85025; 85610; 85730; 87040; 87070; 87077; 87186; 87205; 93005; 93306; 94640; 94761; 96365; 96366; 96375; A6257; J0696; J2405

== ENCOUNTER → 2018-07-01 | Outpatient (CLI) | payer OTHER ==
[~2018-07-01] MED LIST changes: +ASPI81TA27 PO; -AZEL0.1S; -AZIT250T7 PO; +CARV6.2551 PO; +CEPH-37 PO; -FLUT100I IN; -IPRASOL41 NEB; +LISI-275 PO; -PANT1INJ3 IV; +PANT40T PO; -PRO625LQ GT; +UMEC1AER IN; -WARF1TAB36 PO; +WARF5TAB71 PO
[2018-07-01 11:31] LABS: Urine Bacteria NONE SEEN /hpf (None Seen); Urine Blood Negative /uL (Negative); Urine Specific Gravity 1.018 (1.001-1.035); Urine WBC 3 /hpf (0 - 3)
[2018-07-01 11:38] LABS: Basophils # (auto) 0 uL; Eosinophils # (auto) 0.2 uL; Monocytes # (auto) 0.6 uL; White Blood Cell 8.1 10^3/uL (4.4-10.8)
[2018-07-01 11:40] LABS: Basophils % (auto) 0.6 % (0.0-2.0); Hematocrit 42.1 % (41.0-53.0); Hemoglobin 13.7 g/dL (13.5-17.5); Lymphocytes # (auto) 1.6 uL; Lymphocytes % (auto) 20.1 % (10.0-50.0); Mean Corpuscular Hemoglobin 26.6 pg (28.0-32.0); Mean Corpuscular Hgb Conc. 32.5 g/dL (32.0-36.0); Mean Corpuscular Volume 81.8 fL (80.0-100.0); Monocytes % (auto) 7.3 % (0.0-12.0); Neutrophils # (auto) 5.6 uL; Platelet Count (auto) 182 10^3/uL (140-450); Red Blood Cells 5.14 10^6/uL (4.5-5.90); Red Cell Distribution Width 17.8 % (11.8-14.3)
[2018-07-01 11:55] LABS: INR 2.95 (0.9-1.15); Partial Thromboplastin Time 39.3 sec (23.78-33.04); Prothrombin Time 29.7 sec (9.27-12.13)
[2018-07-01 12:25] LABS: Potassium 4.2 mmol/L (3.5-5.1)
[2018-07-01 12:36] LABS: Albumin 2.8 g/dL (3.4-5.0); BUN/Creatinine Ratio 13.6; Bilirubin, Total 0.6 mg/dL (0.2-1.0); Calcium 8.4 mg/dL (8.5-10.1); Total Protein 6.4 g/dL (6.4-8.2)
== END | disposition home or self-care (01) ==
LOC: LAB 10:36
PROVIDERS: ATTEND Specialist
DX: Z01.812 Encounter for preprocedural laboratory examination (principal); H25.11 Age-related nuclear cataract, right eye; D68.311 Acquired hemophilia
CPT/HCPCS: 36415; 80053; 81001; 85025; 85610; 85730

== ENCOUNTER → 2018-11-17 | Outpatient (CLI) | payer OTHER ==
[2018-11-17 07:40] LABS: Urine Bacteria NONE SEEN /hpf (None Seen); Urine Blood Negative /uL (Negative); Urine Mucus FEW (None Seen); Urine Specific Gravity 1.017 (1.001-1.035); Urine WBC 1 /hpf (0 - 3)
[2018-11-17 07:48] LABS: Basophils # (auto) 0 uL; Basophils % (auto) 0.7 % (0.0-2.0); Eosinophils # (auto) 0.2 uL; Eosinophils % (auto) 3.5 % (0.0-7.0); Hematocrit 42.1 % (41.0-53.0); Hemoglobin 13.8 g/dL (13.5-17.5); Lymphocytes # (auto) 1.9 uL; Lymphocytes % (auto) 26.4 % (10.0-50.0); Mean Corpuscular Hemoglobin 27.2 pg (28.0-32.0); Mean Corpuscular Hgb Conc. 32.8 g/dL (32.0-36.0); Mean Corpuscular Volume 82.8 fL (80.0-100.0); Monocytes # (auto) 0.5 uL; Monocytes % (auto) 6.5 % (0.0-12.0); Neutrophils # (auto) 4.4 uL; Neutrophils % (auto) 62.9 % (37.0-80.0); Platelet Count (auto) 208 10^3/uL (140-450); Red Blood Cells 5.09 10^6/uL (4.5-5.90); Red Cell Distribution Width 15.8 % (11.8-14.3); White Blood Cell 7.1 10^3/uL (4.4-10.8)
[2018-11-17 08:26] LABS: Albumin 2.9 g/dL (3.4-5.0); BUN/Creatinine Ratio 15.8; Potassium 4.8 mmol/L (3.5-5.1)
[2018-11-17 08:29] LABS: Bilirubin, Total 0.5 mg/dL (0.2-1.0); Total Protein 6.6 g/dL (6.4-8.2)
== END | disposition home or self-care (01) ==
LOC: LAB 07:03
PROVIDERS: ATTEND Family Medicine
DX: I48.0 Paroxysmal atrial fibrillation (principal); E78.00 Pure hypercholesterolemia, unspecified; J44.9 Chronic obstructive pulmonary disease, unspecified; I10 Essential (primary) hypertension; K21.9 Gastro-esophageal reflux disease without esophagitis
CPT/HCPCS: 36415; 80053; 80061; 81001; 83036; 85025

== ENCOUNTER 2019-10-23 19:21 | Inpatient (IN) | payer OTHER ==
[~2019-10-23] VITALS: Ht 182.9 cm; Wt 89.8 kg
[~2019-10-23 19:21] MED LIST changes: +ASPI-404 PO; -ASPI81TA27 PO
[2019-10-23 20:28] LABS: Urine Bacteria NONE SEEN /hpf (None Seen); Urine Blood 2+ /uL (Negative); Urine Mucus FEW (None Seen); Urine Specific Gravity 1.019 (1.001-1.035); Urine WBC 1 /hpf (0 - 3)
[2019-10-23 20:49] LABS: Basophils # (auto) 0 uL; Basophils % (auto) 0.6 % (0.0-2.0); Eosinophils # (auto) 0.1 uL; Eosinophils % (auto) 0.9 % (0.0-7.0); Hematocrit 42.3 % (41.0-53.0); Lymphocytes # (auto) 0.6 uL; Lymphocytes % (auto) 7.8 % (10.0-50.0); Mean Corpuscular Hemoglobin 27.3 pg (28.0-32.0); Mean Corpuscular Hgb Conc. 33.2 g/dL (32.0-36.0); Mean Corpuscular Volume 82.3 fL (80.0-100.0); Monocytes # (auto) 0.7 uL; Monocytes % (auto) 8.7 % (0.0-12.0); Neutrophils # (auto) 6.7 uL; Platelet Count (auto) 180 10^3/uL (140-450); Red Blood Cells 5.14 10^6/uL (4.5-5.90); Red Cell Distribution Width 15.9 % (11.8-14.3); White Blood Cell 8.1 10^3/uL (4.4-10.8)
[2019-10-23 21:06] LABS: Albumin 3.2 g/dL (3.4-5.0); Anion Gap 5 (5-15); Blood Urea Nitrogen 21 mg/dL (7-18); Calcium 8.8 mg/dL (8.5-10.1); Carbon Dioxide 28 mmol/L (21-32); Chloride 108 mmol/L (98-107); Glucose 137 mg/dL (74-106); Magnesium 1.9 mg/dL (1.6-2.6); Potassium 4.7 mmol/L (3.5-5.1); Sodium 141 mmol/L (136-145)
[2019-10-23] MEDS ORDERED: SODIUM CHLORIDE 0.9% 1,000 ML IVB ONE (21:09)
[2019-10-23 21:15] LABS: Alanine Aminotransferase 14 U/L (16-61); Alkaline Phosphatase 84 U/L (45-117); Aspartate Aminotransferase 11 U/L (15-37); BUN/Creatinine Ratio 17.5; Bilirubin, Total 0.5 mg/dL (0.2-1.0); GFR African American 74 mL/min; GFR Non-African American 61 mL/min; Total Protein 7.1 g/dL (6.4-8.2)
[2019-10-23] MEDS ORDERED: ACETAMINOPHEN 325 MG TAB PO ONE (21:15)
[2019-10-23] MEDS ORDERED: cefTRIAXone 1GM/50ML D5W 50 ML IV ONE (21:15)
[2019-10-23] MEDS ORDERED: ONDANSETRON HCL 4 MG/2 ML VIAL IV ONE (21:15)
[2019-10-23 21:35] LABS: INR 3.92 (0.9-1.15); Partial Thromboplastin Time 46.5 sec (23.64-32.05)
[2019-10-23] MEDS ORDERED: ALBUTEROL SULF 2.5 MG/0.5ML(0.5%) NEB SOLN NEB ONE (21:45)
[2019-10-23] MEDS ORDERED: IPRATROPIUM BROM 0.5 MG/2.5ML INH SOL NEB ONE (21:45)
[2019-10-23] MEDS ORDERED: MORPHINE SULFATE 4 MG/ML SYR/VIAL IV PRN (22:15)
[2019-10-23] MEDS ORDERED: DOCUSATE SOD 100 MG CAP PO PRN (22:15)
[2019-10-23] MEDS ORDERED: NITROGLYCERIN 0.4 MG SL TAB SL PRN (22:15)
[2019-10-23] MEDS ORDERED: ACETAMINOPHEN 325 MG TAB PO PRN (22:15)
[2019-10-23] MEDS ORDERED: DEXTROSE (50%) 50ML SYRG IV PRN (22:15)
[2019-10-23] MEDS ORDERED: MORPHINE SULF INJ 2 MG/ML SYRINGE 1ML IV PRN (22:15)
[2019-10-23] MEDS ORDERED: AZITHROMYCIN 500MG/ 250ML 250 ML IV SCH (22:30)
[2019-10-23 22:34] VITALS: BP 159/91
[2019-10-23] MEDS: AZITHROMYCIN 500MG/ 250ML 250 ML IV SCH (22:46)
[2019-10-23 23:58] VITALS: BP 136/76
[2019-10-24] MEDS: ACCU-CHEK COMFORT CURVE STRIP VI SCH ×4 (00:05→11:13)
[2019-10-24] MEDS: InsuLIN REG 1unit/0.01ml Soln (100units/ml) SC SCH ×4 (04:00→11:13)
[2019-10-24 05:09] VITALS: BP 154/86
[2019-10-24] MEDS ORDERED: MORPHINE SULF INJ 2 MG/ML SYRINGE 1ML IV PRN (06:45)
[2019-10-24 06:46] LABS: Basophils # (auto) 0 uL; Basophils % (auto) 0.6 % (0.0-2.0); Hemoglobin 12.9 g/dL (13.5-17.5)
[2019-10-24 06:49] LABS: Eosinophils # (auto) 0.1 uL; Eosinophils % (auto) 0.8 % (0.0-7.0); Hematocrit 39.3 % (41.0-53.0); Lymphocytes % (auto) 14.9 % (10.0-50.0); Mean Corpuscular Hemoglobin 27.2 pg (28.0-32.0); Mean Corpuscular Hgb Conc. 32.8 g/dL (32.0-36.0); Mean Corpuscular Volume 82.9 fL (80.0-100.0); Monocytes # (auto) 0.8 uL; Monocytes % (auto) 11.2 % (0.0-12.0); Neutrophils % (auto) 72.5 % (37.0-80.0); Nucleated Red Blood Cells % 0.1 %; Platelet Count (auto) 154 10^3/uL (140-450); Red Blood Cells 4.75 10^6/uL (4.5-5.90); Red Cell Distribution Width 15.6 % (11.8-14.3); White Blood Cell 6.9 10^3/uL (4.4-10.8)
[2019-10-24 07:06] LABS: BUN/Creatinine Ratio 19.2; Calcium 8.2 mg/dL (8.5-10.1); Potassium 4.5 mmol/L (3.5-5.1)
[2019-10-24 08:33] VITALS: BP 163/101
[2019-10-24] MEDS ORDERED: FUROSEMIDE 40 MG/4 ML VIAL IV SCH (10:00)
[2019-10-24] MEDS: PANTOPRAZOLE 40 MG TAB PO SCH (10:20)
[2019-10-24] MEDS: CARVEDILOL 3.125 MG TAB PO SCH ×2 (10:20→23:06)
[2019-10-24] MEDS: LISINOPRIL 5 MG TAB PO SCH (10:20)
[2019-10-24] MEDS: ONDANSETRON HCL 4 MG/2 ML VIAL IV PRN (10:25)
[2019-10-24 12:33] VITALS: BP 122/59
[2019-10-24] MEDS: FUROSEMIDE 40 MG/4 ML VIAL IV SCH (17:19)
[2019-10-24] MEDS: TAMSULOSIN HYDROCHLORIDE 0.4 MG CAP PO SCH (17:19)
[2019-10-24 17:31] VITALS: BP 139/78
[2019-10-24] MEDS: HYDROcodone-ACET 5/325MG TAB PO PRN (20:54)
[2019-10-24] MEDS: cefTRIAXone 1GM/50ML D5W 50 ML IV SCH (21:07)
[2019-10-24 22:00] VITALS: BP 141/69
[2019-10-24] MEDS: ATORVASTATIN 20 MG TAB PO SCH (23:05)
[2019-10-24] MEDS: AZITHROMYCIN 500MG/ 250ML 250 ML IV SCH (23:06)
[2019-10-25] MEDS: ONDANSETRON HCL 4 MG/2 ML VIAL IV PRN (04:14)
[2019-10-25 05:00] VITALS: BP 156/83
[2019-10-25] MEDS: FUROSEMIDE 40 MG/4 ML VIAL IV SCH ×2 (06:17→17:58)
[2019-10-25 08:00] VITALS: BP 123/76
[2019-10-25] MEDS: CARVEDILOL 3.125 MG TAB PO SCH ×2 (09:27→22:21)
[2019-10-25] MEDS: PANTOPRAZOLE 40 MG TAB PO SCH (09:28)
[2019-10-25] MEDS: LISINOPRIL 5 MG TAB PO SCH (09:28)
[2019-10-25] MEDS: POTASSIUM CHL 20 Meq TABLET PO SCH (09:28)
[2019-10-25] MEDS ORDERED: MAGNESIUM OXIDE 400 MG TAB PO ONE (10:45)
[2019-10-25] MEDS ORDERED: METOPROLOL TARTRATE 50 MG TAB PO ONE (11:15)
[2019-10-25 12:00] VITALS: BP 140/63
[2019-10-25 12:48] LABS: INR 2.18 (0.9-1.15); Partial Thromboplastin Time 37.3 sec (23.64-32.05)
[2019-10-25 17:00] VITALS: BP 126/55
[2019-10-25] MEDS ORDERED: WARFARIN SODIUM 5 MG TAB PO ONE (17:00)
[2019-10-25] MEDS: TAMSULOSIN HYDROCHLORIDE 0.4 MG CAP PO SCH (17:58)
[2019-10-25] MEDS: cefTRIAXone 1GM/50ML D5W 50 ML IV SCH (20:53)
[2019-10-25 22:00] VITALS: BP 139/79
[2019-10-25] MEDS: AZITHROMYCIN 250 MG TAB PO SCH (22:19)
[2019-10-25] MEDS: ATORVASTATIN 20 MG TAB PO SCH (22:20)
[2019-10-25] MEDS: METOPROLOL TARTRATE 50 MG TAB PO SCH (22:20)
[2019-10-26 04:46] VITALS: BP 121/68
[2019-10-26 06:26] LABS: INR 2.06 (0.9-1.15)
[2019-10-26 06:31] LABS: Basophils # (auto) 0 uL; Basophils % (auto) 0.4 % (0.0-2.0); Eosinophils # (auto) 0 uL; Hematocrit 41.7 % (41.0-53.0); Hemoglobin 13.7 g/dL (13.5-17.5); Lymphocytes # (auto) 0.9 uL; Lymphocytes % (auto) 17.6 % (10.0-50.0); Mean Corpuscular Hgb Conc. 32.9 g/dL (32.0-36.0); Mean Corpuscular Volume 82.3 fL (80.0-100.0); Monocytes # (auto) 0.8 uL; Monocytes % (auto) 15.3 % (0.0-12.0); Neutrophils # (auto) 3.3 uL; Neutrophils % (auto) 66.7 % (37.0-80.0); Nucleated Red Blood Cells % 0.1 %; Platelet Count (auto) 139 10^3/uL (140-450); Red Blood Cells 5.07 10^6/uL (4.5-5.90); Red Cell Distribution Width 15.2 % (11.8-14.3)
[2019-10-26] MEDS: FUROSEMIDE 40 MG/4 ML VIAL IV SCH ×2 (07:03→18:00)
[2019-10-26 08:00] VITALS: BP 113/80
[2019-10-26] MEDS: ALBUTEROL SULF 2.5 MG/0.5ML(0.5%) NEB SOLN NEB PRN (08:59)
[2019-10-26] MEDS: IPRATROPIUM BROM 0.5 MG/2.5ML INH SOL NEB PRN (08:59)
[2019-10-26] MEDS: PANTOPRAZOLE 40 MG TAB PO SCH (10:46)
[2019-10-26] MEDS: POTASSIUM CHL 20 Meq TABLET PO SCH (10:50)
[2019-10-26] MEDS: LISINOPRIL 5 MG TAB PO SCH (10:50)
[2019-10-26] MEDS: METOPROLOL TARTRATE 50 MG TAB PO SCH ×2 (10:52→21:40)
[2019-10-26] MEDS: CARVEDILOL 3.125 MG TAB PO SCH ×2 (10:52→21:40)
[2019-10-26 12:00] VITALS: BP 109/65
[2019-10-26 17:00] VITALS: BP 121/60
[2019-10-26] MEDS ORDERED: WARFARIN SODIUM 5 MG TAB PO ONE (17:00)
[2019-10-26] MEDS: TAMSULOSIN HYDROCHLORIDE 0.4 MG CAP PO SCH (18:00)
[2019-10-26] MEDS: ATORVASTATIN 20 MG TAB PO SCH (21:35)
[2019-10-26] MEDS: cefTRIAXone 1GM/50ML D5W 50 ML IV SCH (21:36)
[2019-10-26 21:43] VITALS: BP 106/63
[2019-10-26] MEDS: AZITHROMYCIN 250 MG TAB PO SCH (22:48)
[2019-10-26] MEDS: HYDROcodone-ACET 5/325MG TAB PO PRN (22:49)
[2019-10-26 23:06] VITALS: BP 106/63
[2019-10-27 05:00] VITALS: BP 102/54
[2019-10-27 06:01] LABS: INR 2.54 (0.9-1.15); Partial Thromboplastin Time 41.9 sec (23.64-32.05)
[2019-10-27] MEDS: FUROSEMIDE 40 MG/4 ML VIAL IV SCH ×2 (06:35→17:22)
[2019-10-27 09:30] VITALS: BP 124/76
[2019-10-27] MEDS: POTASSIUM CHL 20 Meq TABLET PO SCH (09:46)
[2019-10-27] MEDS: METOPROLOL TARTRATE 50 MG TAB PO SCH ×2 (09:46→21:37)
[2019-10-27] MEDS: CARVEDILOL 3.125 MG TAB PO SCH ×2 (09:46→21:36)
[2019-10-27] MEDS: LISINOPRIL 5 MG TAB PO SCH (09:47)
[2019-10-27] MEDS: PANTOPRAZOLE 40 MG TAB PO SCH (09:47)
[2019-10-27 12:31] VITALS: BP 104/64
[2019-10-27] MEDS: ALBUTEROL SULF 2.5 MG/0.5ML(0.5%) NEB SOLN NEB PRN ×2 (15:24→19:44)
[2019-10-27] MEDS: IPRATROPIUM BROM 0.5 MG/2.5ML INH SOL NEB PRN ×2 (15:24→19:44)
[2019-10-27 16:39] VITALS: BP 106/80
[2019-10-27] MEDS ORDERED: WARFARIN SODIUM 2.5 MG TAB PO ONE (17:00)
[2019-10-27] MEDS: TAMSULOSIN HYDROCHLORIDE 0.4 MG CAP PO SCH (17:19)
[2019-10-27 21:32] VITALS: BP 100/58
[2019-10-27] MEDS: ATORVASTATIN 20 MG TAB PO SCH (21:36)
[2019-10-27] MEDS: cefTRIAXone 1GM/50ML D5W 50 ML IV SCH (21:36)
[2019-10-27] MEDS: AZITHROMYCIN 250 MG TAB PO SCH (23:39)
[2019-10-28 05:00] VITALS: BP 127/70
[2019-10-28 05:39] LABS: Basophils # (auto) 0 uL; Basophils % (auto) 0.2 % (0.0-2.0); Eosinophils # (auto) 0 uL; Eosinophils % (auto) 0.4 % (0.0-7.0); Hematocrit 41.2 % (41.0-53.0); Hemoglobin 13.7 g/dL (13.5-17.5); Lymphocytes # (auto) 1.1 uL; Lymphocytes % (auto) 21.8 % (10.0-50.0); Mean Corpuscular Hgb Conc. 33.2 g/dL (32.0-36.0); Mean Corpuscular Volume 81.5 fL (80.0-100.0); Monocytes # (auto) 0.5 uL; Neutrophils # (auto) 3.2 uL; Neutrophils % (auto) 66.6 % (37.0-80.0); Nucleated Red Blood Cells % 0.1 %; Platelet Count (auto) 120 10^3/uL (140-450); Red Blood Cells 5.06 10^6/uL (4.5-5.90); Red Cell Distribution Width 15.5 % (11.8-14.3); White Blood Cell 4.9 10^3/uL (4.4-10.8)
[2019-10-28 05:59] LABS: INR 2.8 (0.9-1.15); Partial Thromboplastin Time 43.6 sec (23.64-32.05)
[2019-10-28] MEDS: FUROSEMIDE 40 MG/4 ML VIAL IV SCH (06:03)
[2019-10-28] MEDS: IPRATROPIUM BROM 0.5 MG/2.5ML INH SOL NEB PRN ×2 (06:22→11:20)
[2019-10-28] MEDS: ALBUTEROL SULF 2.5 MG/0.5ML(0.5%) NEB SOLN NEB PRN ×2 (06:22→11:20)
[2019-10-28 09:00] VITALS: BP 103/52
[2019-10-28] MEDS: PANTOPRAZOLE 40 MG TAB PO SCH (10:54)
[2019-10-28] MEDS: POTASSIUM CHL 20 Meq TABLET PO SCH (10:54)
[2019-10-28] MEDS: METOPROLOL TARTRATE 50 MG TAB PO SCH (10:56)
[2019-10-28] MEDS: LISINOPRIL 5 MG TAB PO SCH (10:57)
[2019-10-28] MEDS: CARVEDILOL 3.125 MG TAB PO SCH (10:58)
[2019-10-28 11:09] VITALS: BP 97/51
[2019-10-28 12:30] VITALS: BP 61/43
== END 2019-10-28 13:30 | disposition home or self-care (01) | DRG 291 ==
LOC: ER 19:22 → TELE 19:23 → TELE-WESTW 23:08
PROVIDERS: ADMIT Hospitalist; ATTEND Family Medicine
DX: I11.0 Hypertensive heart disease with heart failure (principal); J18.9 Pneumonia, unspecified organism; J44.1 Chronic obstructive pulmonary disease with (acute) exacerbation; J44.0 Chronic obstructive pulmonary disease with (acute) lower respiratory infection; I50.43 Acute on chronic combined systolic (congestive) and diastolic (congestive) heart failure; E78.00 Pure hypercholesterolemia, unspecified; E78.5 Hyperlipidemia, unspecified; I48.91 Unspecified atrial fibrillation; N40.0 Benign prostatic hyperplasia without lower urinary tract symptoms; K21.9 Gastro-esophageal reflux disease without esophagitis; R31.0 Gross hematuria; Z79.01 Long term (current) use of anticoagulants; Z85.51 Personal history of malignant neoplasm of bladder; Z82.49 Family history of ischemic heart disease and other diseases of the circulatory system; Z87.891 Personal history of nicotine dependence; Z80.42 Family history of malignant neoplasm of prostate; Z99.81 Dependence on supplemental oxygen; Z86.711 Personal history of pulmonary embolism; Z86.718 Personal history of other venous thrombosis and embolism
CPT/HCPCS: 36415; 71045; 80048; 80053; 81001; 82565; 82962; 83036; 83605; 83735; 83880; 84484; 85025; 85379; 85610; 85730; 87040; 87804; 93005; 93306; 94640; G0378; J0696; J2405

== ENCOUNTER 2019-11-01 11:40 | Inpatient (IN) | payer OTHER ==
[~2019-11-01] VITALS: Ht 182.9 cm; Wt 84.0 kg
[2019-11-01] MEDS ORDERED: methylPREDNISolone SOD SUCC 125 MG/2 ML VL IV ONE (12:30)
[2019-11-01] MEDS ORDERED: ALBUTEROL SULF 2.5 MG/0.5ML(0.5%) NEB SOLN HHN ONE (12:30)
[2019-11-01] MEDS ORDERED: IPRATROPIUM BROM 0.5 MG/2.5ML INH SOL HHN ONE (12:30)
[2019-11-01 13:27] LABS: Basophils # (auto) 0 uL; Hematocrit 48.1 % (41.0-53.0); Hemoglobin 15.6 g/dL (13.5-17.5); Lymphocytes # (auto) 0.8 uL; Lymphocytes % (auto) 9.5 % (10.0-50.0); Monocytes # (auto) 0.6 uL; Nucleated Red Blood Cells % 0.1 %
[2019-11-01 13:29] LABS: Basophils % (auto) 0.3 % (0.0-2.0); Eosinophils # (auto) 0.1 uL; Eosinophils % (auto) 0.6 % (0.0-7.0); Mean Corpuscular Hemoglobin 26.7 pg (28.0-32.0); Mean Corpuscular Hgb Conc. 32.5 g/dL (32.0-36.0); Monocytes % (auto) 7.7 % (0.0-12.0); Neutrophils # (auto) 6.8 uL; Neutrophils % (auto) 81.9 % (37.0-80.0); Platelet Count (auto) 167 10^3/uL (140-450); Red Blood Cells 5.86 10^6/uL (4.5-5.90); Red Cell Distribution Width 15.6 % (11.8-14.3); White Blood Cell 8.3 10^3/uL (4.4-10.8)
[2019-11-01 13:38] LABS: Albumin 3.1 g/dL (3.4-5.0); Calcium 9.1 mg/dL (8.5-10.1); Magnesium 2.2 mg/dL (1.6-2.6); Potassium 4.8 mmol/L (3.5-5.1)
[2019-11-01 13:44] LABS: BUN/Creatinine Ratio 29.7; Bilirubin, Total 0.8 mg/dL (0.2-1.0); Total Protein 7.3 g/dL (6.4-8.2)
[2019-11-01] MEDS ORDERED: ACETAMINOPHEN 500 MG TAB PO PRN (14:45)
[2019-11-01] MEDS ORDERED: SODIUM CHLORIDE 0.9% 1,000 ML IV ONE (14:45)
[2019-11-01] MEDS ORDERED: MORPHINE SULF INJ 2 MG/ML SYRINGE 1ML IV PRN ×2 (14:45)
[2019-11-01] MEDS ORDERED: NITROGLYCERIN 0.4 MG SL TAB SL PRN (14:45)
[2019-11-01] MEDS ORDERED: ONDANSETRON HCL 4 MG/2 ML VIAL IV PRN (14:45)
[2019-11-01 15:30] VITALS: BP 133/86
[2019-11-01 16:52] LABS: Urine Bacteria NONE SEEN /hpf (None Seen); Urine Blood 2+ /uL (Negative); Urine Hyaline Cast FEW /lpf (0 - 2); Urine Mucus FEW (None Seen); Urine Specific Gravity 1.017 (1.001-1.035); Urine WBC 1 /hpf (0 - 3)
[2019-11-01] MEDS: TAMSULOSIN HYDROCHLORIDE 0.4 MG CAP PO SCH (18:16)
[2019-11-01] MEDS: ALBUTEROL SULF 2.5 MG/0.5ML(0.5%) NEB SOLN NEB SCH (18:36)
[2019-11-01] MEDS: IPRATROPIUM BROM 0.5 MG/2.5ML INH SOL NEB SCH (18:36)
[2019-11-01] MEDS: ATORVASTATIN 20 MG TAB PO SCH (21:56)
[2019-11-01] MEDS: CARVEDILOL 3.125 MG TAB PO SCH (21:56)
[2019-11-01] MEDS: HYDROcodone-ACET 5/325MG TAB PO PRN (21:57)
[2019-11-01] MEDS: DOXYCYCLINE 100 MG TAB/CAP PO SCH (21:57)
[2019-11-01 22:00] VITALS: BP 127/81
[2019-11-01 22:11] VITALS: BP 140/90
[2019-11-02 05:43] LABS: Basophils # (auto) 0 uL; Basophils % (auto) 0.1 % (0.0-2.0); Eosinophils # (auto) 0 uL; Hematocrit 40.9 % (41.0-53.0); Hemoglobin 13.4 g/dL (13.5-17.5); Lymphocytes # (auto) 0.4 uL; Lymphocytes % (auto) 12.5 % (10.0-50.0); Mean Corpuscular Hemoglobin 26.8 pg (28.0-32.0); Mean Corpuscular Hgb Conc. 32.6 g/dL (32.0-36.0); Mean Corpuscular Volume 81.9 fL (80.0-100.0); Monocytes # (auto) 0.1 uL; Monocytes % (auto) 3.9 % (0.0-12.0); Neutrophils % (auto) 83.5 % (37.0-80.0); Nucleated Red Blood Cells % 0.1 %; Platelet Count (auto) 123 10^3/uL (140-450); Red Blood Cells 4.99 10^6/uL (4.5-5.90); Red Cell Distribution Width 15.3 % (11.8-14.3); White Blood Cell 3.5 10^3/uL (4.4-10.8)
[2019-11-02] MEDS: ALBUTEROL SULF 2.5 MG/0.5ML(0.5%) NEB SOLN NEB SCH ×3 (05:55→18:31)
[2019-11-02] MEDS: IPRATROPIUM BROM 0.5 MG/2.5ML INH SOL NEB SCH ×3 (05:55→18:31)
[2019-11-02 06:01] LABS: INR 1.66 (0.9-1.15); Partial Thromboplastin Time 29.1 sec (23.64-32.05)
[2019-11-02 06:08] LABS: BUN/Creatinine Ratio 33.6; Calcium 8.4 mg/dL (8.5-10.1); Potassium 4.6 mmol/L (3.5-5.1)
[2019-11-02 09:00] VITALS: BP 153/87
[2019-11-02] MEDS: DOXYCYCLINE 100 MG TAB/CAP PO SCH (09:43)
[2019-11-02] MEDS: LISINOPRIL 5 MG TAB PO SCH (09:44)
[2019-11-02] MEDS: CARVEDILOL 3.125 MG TAB PO SCH ×2 (09:44→21:06)
[2019-11-02] MEDS: FAMOTIDINE 20 MG TAB PO SCH (09:45)
[2019-11-02] MEDS: HYDROcodone-ACET 5/325MG TAB PO PRN (10:31)
[2019-11-02 13:00] VITALS: BP 110/68
[2019-11-02 17:00] VITALS: BP 151/84
[2019-11-02] MEDS: TAMSULOSIN HYDROCHLORIDE 0.4 MG CAP PO SCH (18:26)
[2019-11-02] MEDS: SODIUM CHLORIDE 0.9% 1,000 ML IV SCH (21:05)
[2019-11-02] MEDS: ATORVASTATIN 20 MG TAB PO SCH (21:06)
[2019-11-02] MEDS: ENOXAPARIN SOD 40 MG/0.4 ML SYRINGE SC SCH (21:06)
[2019-11-02 21:21] VITALS: BP 120/75
[2019-11-03 06:17] VITALS: BP 125/78
[2019-11-03 06:19] LABS: Basophils # (auto) 0 uL; Basophils % (auto) 0.2 % (0.0-2.0); Eosinophils # (auto) 0 uL; Hematocrit 36.6 % (41.0-53.0); Hemoglobin 12.3 g/dL (13.5-17.5); Lymphocytes # (auto) 1.7 uL; Lymphocytes % (auto) 21.5 % (10.0-50.0); Mean Corpuscular Hemoglobin 27.3 pg (28.0-32.0); Mean Corpuscular Hgb Conc. 33.6 g/dL (32.0-36.0); Mean Corpuscular Volume 81.1 fL (80.0-100.0); Monocytes # (auto) 0.6 uL; Monocytes % (auto) 8.1 % (0.0-12.0); Neutrophils # (auto) 5.4 uL; Neutrophils % (auto) 70.2 % (37.0-80.0); Nucleated Red Blood Cells % 0.1 %; Platelet Count (auto) 124 10^3/uL (140-450); Red Blood Cells 4.51 10^6/uL (4.5-5.90); Red Cell Distribution Width 15.4 % (11.8-14.3); White Blood Cell 7.7 10^3/uL (4.4-10.8)
[2019-11-03 06:28] LABS: INR 1.4 (0.9-1.15); Partial Thromboplastin Time 30.1 sec (23.64-32.05)
[2019-11-03 06:33] LABS: Potassium 4.5 mmol/L (3.5-5.1)
[2019-11-03 06:52] LABS: BUN/Creatinine Ratio 37.7; Calcium 8.2 mg/dL (8.5-10.1)
[2019-11-03] MEDS: IPRATROPIUM BROM 0.5 MG/2.5ML INH SOL NEB SCH ×3 (07:21→18:51)
[2019-11-03] MEDS: ALBUTEROL SULF 2.5 MG/0.5ML(0.5%) NEB SOLN NEB SCH ×3 (07:21→18:51)
[2019-11-03 09:00] VITALS: BP 153/76
[2019-11-03] MEDS: ENOXAPARIN SOD 40 MG/0.4 ML SYRINGE SC SCH ×2 (09:52→22:00)
[2019-11-03] MEDS: FAMOTIDINE 20 MG TAB PO SCH (09:52)
[2019-11-03] MEDS: LISINOPRIL 5 MG TAB PO SCH (09:52)
[2019-11-03] MEDS: CARVEDILOL 3.125 MG TAB PO SCH ×2 (09:53→21:58)
[2019-11-03] MEDS: HYDROcodone-ACET 5/325MG TAB PO PRN ×2 (11:14→19:51)
[2019-11-03] MEDS: SODIUM CHLORIDE 0.9% 1,000 ML IV SCH (11:20)
[2019-11-03 17:00] VITALS: BP 145/86
[2019-11-03] MEDS: TAMSULOSIN HYDROCHLORIDE 0.4 MG CAP PO SCH (18:29)
[2019-11-03] MEDS: ATORVASTATIN 20 MG TAB PO SCH (22:00)
[2019-11-03 22:29] VITALS: BP 139/73
[2019-11-04] MEDS: SODIUM CHLORIDE 0.9% 1,000 ML IV SCH ×2 (00:40→14:00)
[2019-11-04 05:12] VITALS: BP 157/79
[2019-11-04] MEDS: IPRATROPIUM BROM 0.5 MG/2.5ML INH SOL NEB SCH ×2 (05:55→11:31)
[2019-11-04] MEDS: ALBUTEROL SULF 2.5 MG/0.5ML(0.5%) NEB SOLN NEB SCH ×2 (05:55→11:31)
[2019-11-04 09:00] VITALS: BP 154/101
[2019-11-04] MEDS ORDERED: ANGIOMAX 250 MG VIAL IV ONE (09:02)
[2019-11-04] MEDS ORDERED: fentaNYL CITRATE 100 MCG/2 ML VL ONE (09:02)
[2019-11-04] MEDS ORDERED: MIDAZOLAM HCL 1MG/1ML-2 ML VIAL ONE (09:03)
[2019-11-04] MEDS ORDERED: SODIUM CHL 0.9% 0 ML ONE (09:03)
[2019-11-04] MEDS ORDERED: IOHEXOL 350 MG/ML 100ML IJ ONE (09:13)
[2019-11-04] MEDS ORDERED: ENOXAPARIN SOD 80 MG/0.8ML SYRINGE SC SCH (10:00)
[2019-11-04] MEDS ORDERED: ONDANSETRON HCL 4 MG/2 ML VIAL ONE (10:13)
[2019-11-04] MEDS: FAMOTIDINE 20 MG TAB PO SCH (10:52)
[2019-11-04] MEDS: CARVEDILOL 3.125 MG TAB PO SCH (12:20)
[2019-11-04] MEDS: LISINOPRIL 5 MG TAB PO SCH (12:20)
[2019-11-04 13:00] VITALS: BP 130/69
[2019-11-04] MEDS ORDERED: ONDA-144 PO (13:36)
[2019-11-04 14:14] VITALS: BP 130/69
[2019-12-21] MEDS ORDERED: FURO40TA4 PO (10:38)
== END 2019-11-04 15:00 | disposition home or self-care (01) | DRG 391 ==
LOC: ER 11:40 → TELE 11:41 → TELE-WESTW 21:13
PROVIDERS: ADMIT Nurse Practitioner Acute Care; ATTEND Internal Medicine
PROC: B4101ZZ Fluoroscopy of Abdominal Aorta using Low Osmolar Contrast (ICD-10-PCS; principal; 2019-11-04)
DX: K52.9 Noninfective gastroenteritis and colitis, unspecified (principal); N17.0 Acute kidney failure with tubular necrosis; J44.1 Chronic obstructive pulmonary disease with (acute) exacerbation; E44.1 Mild protein-calorie malnutrition; I13.0 Hypertensive heart and chronic kidney disease with heart failure and stage 1 through stage 4 chronic kidney disease, or unspecified chronic kidney disease; E86.0 Dehydration; K21.9 Gastro-esophageal reflux disease without esophagitis; E78.5 Hyperlipidemia, unspecified; I71.4 Abdominal aortic aneurysm, without rupture; I48.91 Unspecified atrial fibrillation; N40.0 Benign prostatic hyperplasia without lower urinary tract symptoms; N18.3 Chronic kidney disease, stage 3 (moderate); T45.515A Adverse effect of anticoagulants, initial encounter; Z79.01 Long term (current) use of anticoagulants; Z86.79 Personal history of other diseases of the circulatory system; Z79.899 Other long term (current) drug therapy; Z87.891 Personal history of nicotine dependence; Z86.718 Personal history of other venous thrombosis and embolism; Y92.89 Other specified places as the place of occurrence of the external cause; Z68.25 Body mass index [BMI] 25.0-25.9, adult
CPT/HCPCS: 36415; 71045; 71046; 74176; 80048; 80053; 81001; 83605; 83735; 83880; 84484; 85025; 85610; 85730; 86850; 86900; 86901; 87040; 87070; 87077; 87186; 87205; 87804; 93005; 94640; 94644; 96361; 96374; 99152; 99153; 99291; G0378; J2250; J2405

== ENCOUNTER → 2019-11-10 | Outpatient (CLI) | payer OTHER ==
[~2019-11-10] MED LIST changes: -CEPH-37 PO; +ONDA-144 PO; -PRE5T GT
[2019-11-10 10:39] LABS: Albumin 2.3 g/dL (3.4-5.0); Calcium 8.5 mg/dL (8.5-10.1); Potassium 4.3 mmol/L (3.5-5.1)
[2019-11-10 10:43] LABS: BUN/Creatinine Ratio 19.4; Bilirubin, Total 0.4 mg/dL (0.2-1.0); Total Protein 5.8 g/dL (6.4-8.2)
== END | disposition home or self-care (01) ==
LOC: LAB 09:37
PROVIDERS: ATTEND Family Medicine
DX: I12.9 Hypertensive chronic kidney disease with stage 1 through stage 4 chronic kidney disease, or unspecified chronic kidney disease (principal); N18.3 Chronic kidney disease, stage 3 (moderate)
CPT/HCPCS: 36415; 80053

== ENCOUNTER 2019-11-22 10:32 | Emergency (ER) | payer OTHER ==
[~2019-11-22] VITALS: Ht 182.9 cm; Wt 90.7 kg
[2019-11-22] MEDS ORDERED: ONDANSETRON HCL 4 MG/2 ML VIAL IV ONE (11:30)
[2019-11-22 11:37] LABS: Basophils # (auto) 0 10 ^3/uL (0-0.2); Basophils % (auto) 0.5 % (0.0-2.0); Eosinophils # (auto) 0.1 10 ^3/uL (0-0.8); Eosinophils % (auto) 1.6 % (0.0-7.0); Hematocrit 40.5 % (41.0-53.0); Hemoglobin 13.3 g/dL (13.5-17.5); Lymphocytes # (auto) 1.4 10 ^3/uL (0.4-5.4); Lymphocytes % (auto) 19.4 % (10.0-50.0); Mean Corpuscular Hgb Conc. 32.8 g/dL (32.0-36.0); Mean Corpuscular Volume 82.3 fL (80.0-100.0); Monocytes # (auto) 0.6 10 ^3/uL (0-1.3); Neutrophils # (auto) 5.2 10 ^3/uL (1.6-8.6); Neutrophils % (auto) 70.5 % (37.0-80.0); Platelet Count (auto) 190 10^3/uL (140-450); Red Blood Cells 4.92 10^6/uL (4.5-5.90); Red Cell Distribution Width 16.5 % (11.8-14.3); White Blood Cell 7.3 10^3/uL (4.4-10.8)
[2019-11-22 11:54] LABS: Albumin 2.6 g/dL (3.4-5.0); Calcium 8.5 mg/dL (8.5-10.1)
[2019-11-22 11:59] LABS: BUN/Creatinine Ratio 18.6; Bilirubin, Total 0.5 mg/dL (0.2-1.0); Total Protein 6.5 g/dL (6.4-8.2)
[2019-11-22 12:01] VITALS: BP 146/73
[2019-12-21] MEDS ORDERED: FURO40TA4 PO (10:38)
== END 2019-11-22 13:40 | disposition home or self-care (01) ==
LOC: ER 10:32
DX: S09.90XA Unspecified injury of head, initial encounter (principal); F07.81 Postconcussional syndrome; I11.0 Hypertensive heart disease with heart failure; I50.9 Heart failure, unspecified; J44.9 Chronic obstructive pulmonary disease, unspecified; E78.5 Hyperlipidemia, unspecified; I48.91 Unspecified atrial fibrillation; Z90.89 Acquired absence of other organs; Z79.899 Other long term (current) drug therapy; Z87.891 Personal history of nicotine dependence; W19.XXXA Unspecified fall, initial encounter; Y93.89 Activity, other specified; Y99.8 Other external cause status; Y92.59 Other trade areas as the place of occurrence of the external cause
CPT/HCPCS: 36415; 70450; 70480; 71101; 80053; 84484; 85025; 93005; 96374; 99285; J2405

== ENCOUNTER 2019-12-23 07:02 | Inpatient (IN) | payer OTHER ==
[2019-12-21 12:59] LABS: Basophils # (auto) 0.1 10 ^3/uL (0-0.2); Basophils % (auto) 0.5 % (0.0-2.0); Eosinophils # (auto) 0.3 10 ^3/uL (0-0.8); Hemoglobin 13.7 g/dL (13.5-17.5); Lymphocytes # (auto) 1.6 10 ^3/uL (0.4-5.4); Lymphocytes % (auto) 17.7 % (10.0-50.0); Mean Corpuscular Hgb Conc. 32.5 g/dL (32.0-36.0); Mean Corpuscular Volume 83.1 fL (80.0-100.0); Monocytes # (auto) 0.7 10 ^3/uL (0-1.3); Monocytes % (auto) 7.8 % (0.0-12.0); Neutrophils # (auto) 6.6 10 ^3/uL (1.6-8.6); Nucleated Red Blood Cells % 0.1 %; Platelet Count (auto) 208 10^3/uL (140-450); Red Blood Cells 5.05 10^6/uL (4.5-5.90); Red Cell Distribution Width 16.8 % (11.8-14.3); White Blood Cell 9.3 10^3/uL (4.4-10.8)
[2019-12-21 13:12] LABS: INR 1.11 (0.9-1.15); Partial Thromboplastin Time 27.6 sec (23.64-32.05)
[2019-12-21 13:16] LABS: Albumin 3.2 g/dL (3.4-5.0); Calcium 9.5 mg/dL (8.5-10.1); Potassium 3.8 mmol/L (3.5-5.1)
[2019-12-21 13:19] LABS: BUN/Creatinine Ratio 22.9; Bilirubin, Total 0.5 mg/dL (0.2-1.0); Total Protein 7.2 g/dL (6.4-8.2)
[~2019-12-23] VITALS: Ht 182.9 cm; Wt 89.7 kg
[~2019-12-23 07:02] MED LIST changes: -ALBUAER17 IN; +FURO40TA4 PO; -ONDA-144 PO
[2019-12-23] MEDS ORDERED: IOHEXOL 350 MG/ML 100ML IJ ONE ×2 (07:35→11:17)
[2019-12-23] MEDS ORDERED: LIDOCAINE 2%HCL (LOCAL ANESTH.) INJ 20ML MDV ONE ×3 (07:35→09:48)
[2019-12-23] MEDS ORDERED: ATROPINE SULF 1 MG/10ml SYR ONE (09:10)
[2019-12-23] MEDS ORDERED: ANGIOMAX 250 MG VIAL IV ONE ×2 (09:10→11:16)
[2019-12-23] MEDS ORDERED: DOPamine 1600MCG/ML D5W 0 ML IV ONE (09:11)
[2019-12-23] MEDS ORDERED: SODIUM CHL 0.9% 50 ML ONE ×2 (09:11→11:16)
[2019-12-23] MEDS ORDERED: fentaNYL CITRATE 100 MCG/2 ML VL ONE ×2 (09:11→09:36)
[2019-12-23] MEDS ORDERED: MIDAZOLAM HCL 1MG/1ML-2 ML VIAL ONE ×2 (09:11→09:37)
[2019-12-23] MEDS ORDERED: PHENYLEPHRINE HCL 10 MG/ML VL ONE (09:37)
[2019-12-23] MEDS ORDERED: EPINEPHrine HCL 1 MG/10 ML SYRG ONE (09:48)
[2019-12-23] MEDS ORDERED: diphenhdrAMINE HCL 50 MG/1 ML VL ONE (10:40)
[2019-12-23] MEDS ORDERED: PROMETHAZINE HCL 25 MG/ML 1ML ONE (10:42)
[2019-12-23] MEDS ORDERED: ONDANSETRON HCL 4 MG/2 ML VIAL ONE (12:17)
[2019-12-23] MEDS ORDERED: NITROGLYCERIN 0.4 MG SL TAB SL PRN (12:45)
[2019-12-23] MEDS ORDERED: HYDROcodone-ACET 5/325MG TAB PO PRN (12:45)
[2019-12-23] MEDS ORDERED: MORPHINE SULF INJ 2 MG/ML SYRINGE 1ML IV PRN (12:45)
[2019-12-23] MEDS ORDERED: ACETAMINOPHEN 500 MG TAB PO PRN (12:45)
[2019-12-23] MEDS ORDERED: ONDANSETRON HCL 4 MG/2 ML VIAL IV PRN (12:45)
[2019-12-23] MEDS ORDERED: cloNIDine HCL 0.1 MG TAB PO PRN (14:00)
--- NOTE | 2019-12-23 15:30 | NUR ---
Patient arrived on Tele Unit from [employer] Report received from CORRINE Siddiqui. PAT CUELLAR brought to bed 278B following AAA repair and Cardiac catheterization by Dr. Hatfield, patient on portable oxygen. Patient transferred to unit bed using slideboard to keep patient flat, connected to compliance monitor #56, HR 85, Afib rhythm and oxygen at 2L. Catheterization site assessed for any bleeding, redness or swelling in bilateral groin regions. Safeguard device in place and inflated with 50 CC air to the left groin, dressing is clean, dry and intact, surrounding tissue is soft and no s/s of hematoma or bleeding. Safeguard device in place and inflated with 50 CC of air to the R groin and dressing through window shows red blood filling dressing 3/4 of gauze covering, surrounding tissue is soft and no s/s of hematoma or bleeding. Pedal pulses on bilateral legs assessed for positive tissue perfusion, 1 + bilateral dorsalis pedis. Patient instructed on need to notify staff immediately if any pain, burning or wetness to site, and any lower back pain. Patient assessed with metallurgical lab technician RN Chen at bedside. All questions and concerns addressed, patient verbalized understanding of all education and instruction. Patient is A& O x4, no s/s of distress. POC discussed, oriented to room and RN Heavenly, and no visitor policy at this time. Patient educated that he is to lay flat in bed until the RN assesses the patient one last time at 1999. Will relay to NOC shift regarding flat time. Will continue to monitor Q1h and PRN. Vital signs stable at this time.
[2019-12-23 16:14] VITALS: BP 159/91
--- NOTE | 2019-12-23 16:30 | NUR ---
Progress Note Re-assessed patient bilateral groin incision sites. Patient R groin shows gauze through safeguard window is complete with red blood, surrounding tissue is soft, no s/s of hematoma or active bleeding, pulse to the R dorsalis pedis remains same at 1+. Chen RN from semiconductor lab technician also at bedside, came to re-assess patient with this RN, the site looks good at this time, small amount of saturated bleeding is okay, active bleeding and hematoma is what to monitor at this time. Will continue to monitor Q1h and PRN. Patient remaining flat at this time, tolerating well.
[2019-12-23 17:00] VITALS: BP 149/98
--- NOTE | 2019-12-23 17:30 | NUR ---
Monitoring incision sites Left groin dressing remains clean, dry and intact, surrounding tissue soft, no s/s of hematoma or bleeding. Right groin remains the same as last note, full gauze is saturated with red blood through safeguard window, no s/s of hematoma or active bleeding at this time. Patient remains flat at this time, patient having pain in the back, patient states he has arthritis in his lower back and takes norco 10 at home normally. Will medicate per orders. Patient heels floated on pillow.
[2019-12-23] MEDS: TAMSULOSIN HYDROCHLORIDE 0.4 MG CAP PO SCH (17:38)
[2019-12-23] MEDS: CARVEDILOL 3.125 MG TAB PO SCH (17:38)
[2019-12-23] MEDS: HYDROcodone-ACET 10/325MG TAB PO PRN ×2 (17:51→22:17)
--- NOTE | 2019-12-23 19:15 | NUR ---
Report given to Anjali RN, NOC shift Care endorsed to Anjali, patient is calm and resting at this time, no s/s of distress. Endorsed care regarding "flat time" to end at 2000 per Content Editor, and monitor for bleeding to bilateral groin incision sites. All questions answered to RN satisfaction.
--- NOTE | 2019-12-23 19:30 | NUR ---
RECEIVED PATIENT FROM DAY SHIFT RN. PATIENT RESTING IN BED. NO S/S OF DISTRESS NOTED. C/O BACK PAIN AFTER MEDICATION EARLIER. REINFORCED SCHEDULE OF PAIN MANAGEMENT. WILL COME BACK WHEN THE TIME IS DUE AND PER PATIENT REQUESTS. SAFEGUARD ON BL GROIN C/D/I. A LITTER REDNESS NOTED ON BOTH SIDE. AND A LITTER SWOLLEN NOTED ON LEFT SIDE. NO S/S OF BRUISE NOTED FOR NOW. STUBBS CATH IN PLACE DRAINING GRAVITY WITH CLEAN AND YELLOW URINE. POC INSTRUCTED AND ENCOURAGED PATIENT TO CALL FOR STEEL MELTER IF NEEDED. BED IN LOWEST POSITION WITH SIDE RAILS UP X 2. CALL BAE WITHIN REACH. ALARM ON. CONTINUE TO MONITOR FOR CHANGES Q1H AND PRN.
--- NOTE | 2019-12-23 20:52 | NUR ---
INCREASED HOB TO 30 DEGREE. AND REINFORCED PATIENT TO KEEP THIS DEGREE FOR THE REST OF THE NIGHT UNTIL REASSESSED BY CATH NURSE TOMORROW MORNING. JUICES OFFERED PER PATIENT REQUESTED. ENCOURAGED PATIENT TO REPOSITION IN THE BED. PATIENT VERBALIZED UNDERSTANDING. CONTINUE TO MONITOR.
--- NOTE | 2019-12-23 21:35 | NUR ---
NO S/S OF MORE BRUISE NOTED FROM BL GROIN SITES. DEFLATED 10 ML FROM SAFEGUARD. CONTINUE TO MONITOR.
[2019-12-23 22:00] VITALS: BP 107/69
--- NOTE | 2019-12-23 22:04 | NUR ---
PATIENT SITTING AT THE SIDE OF THE BED. NO S/S OF DISTRESS NOTED. DENIED NAUSEA FOR NOW. CONTINUE TO MONITOR. Addendum: 12/23/19 at 2205 by Prachi Howard RN WRONG NOTES
[2019-12-23] MEDS: ATORVASTATIN 20 MG TAB PO SCH (22:16)
--- NOTE | 2019-12-23 22:17 | NUR ---
PATIENT C/O PAIN @ 03/24. MEDICATED PATIENT ORDERED. CONTINUE TO MONITOR.
--- NOTE | 2019-12-23 22:55 | NUR ---
DEFLATED 10 ML FROM SAFEGUARD. PATIENT TOLERATED WELL. NO S/S OF BLEED NOTED. CONTINUE TO MONITOR.
--- NOTE | 2019-12-23 23:17 | NUR ---
REASSESSED PAIN 11/22. PATIENT IS COMFORTABLE. CONTINUE TO MONITOR.
--- NOTE | 2019-12-24 | NUR ---
DEFLATED 10 ML FROM SAFEGUARD. PATIENT TOLERATED WELL. NO S/S OF BLEED NOTED. CONTINUE TO MONITOR.
--- NOTE | 2019-12-24 01:12 | NUR ---
DEFLATED 10 ML FROM SAFEGUARD. PATIENT TOLERATED WELL. NO S/S OF BLEED NOTED. CONTINUE TO MONITOR.
--- NOTE | 2019-12-24 02:23 | NUR ---
DEFLATED 10 ML FROM SAFEGUARD. PATIENT TOLERATED WELL. NO S/S OF BLEED NOTED. CONTINUE TO MONITOR.
[2019-12-24 05:00] VITALS: BP 132/71
--- NOTE | 2019-12-24 06:21 | NUR ---
PATIENT RESTING IN BED WITH EYES CLOSED. NO S/S OF DISTRESS NOTED. DENIED PAIN FOR NOW. SAFEGUARD ON BL GROIN C/D/I. NO NEW S/S OF BLEED NOTED. CONTINUE TO MONITOR.
--- NOTE | 2019-12-24 07:45 | NUR ---
Opening Note Assumed care of patient, he is comfortable at this time, A & O x4, no s/s of distress. POC discussed with patient. Assessed bilateral groin incision sites, the left groin dressing is clean, dry and intact, safeguard deflated at this time, surrounding tissue is soft, no s/s of hematoma, some light brown bruising to the left lateral side of incision site that is soft, no pain to the patient. The right groin dressing shows dark blood through the safeguard window and is deflated, surrounding tissue is soft, no s/s of hematoma or active bleeding. Patient HOB is at 25 degrees at this time. Patient tolerating position well at this time. Bed is in lowest, locked position, call light within reach. Will continue to monitor and maintain position until reassessed by ear mold laboratory technician team or Dr. Hatfield.
[2019-12-24] MEDS: CARVEDILOL 3.125 MG TAB PO SCH ×2 (08:18→17:55)
[2019-12-24] MEDS: HYDROcodone-ACET 10/325MG TAB PO PRN (08:19)
--- NOTE | 2019-12-24 08:45 | NUR ---
Note: Patient groin re-assessment done with primary RN Heavenly at bedside. Left groin appears benign with no signs of hematoma or bleeding. Safe guard was removed and replaced with new gauze and tegaderm dressing. Right groin had dried blood on gauze dressing under safe guard, dressing was removed, site was cleaned and new dressing reapplied. No bleeding or hematoma noted at this time. Patient was sat up to eat breakfast, primary RN will continue to monitor patient and manage groin.
--- NOTE | 2019-12-24 08:50 | NUR ---
Reassessment by Extension Associate of groin sites Chen CASTLE from phlebotomy lab assistant came to reassess the groin sites and change dressings. Was told the "sites look good." Patient was turned, skin checked and sat up patient so he could eat. Patient more comfortable at this time. Okay to get patient up to bedside commode, but patient educated not to strain for a bowel movement. Will continue to monitor Q1h and PRN.
[2019-12-24 09:00] VITALS: BP 123/68
[2019-12-24] MEDS ORDERED: ASPirin-EC 81 mg tab PO SCH (10:00)
[2019-12-24] MEDS ORDERED: LISINOPRIL 5 MG TAB PO SCH (10:00)
[2019-12-24] MEDS ORDERED: PANTOPRAZOLE 40 MG TAB PO SCH (10:00)
[2019-12-24] MEDS ORDERED: UMECLIDINIUM VILANTEROL IN SCH (10:00)
[2019-12-24] MEDS ORDERED: FUROSEMIDE 40 MG TAB PO SCH (10:00)
[2019-12-24 13:00] VITALS: BP 103/51
--- NOTE | 2019-12-24 13:00 | NUR ---
Discontinued IV to R AC. Patient requesting IV to be removed, it is bloody and he would like to be able to use his R arm. Patient has IV access to the L wrist. This RN removed to IV to the R AC and placed pressure dressing. Patient tolerated well.
--- NOTE | 2019-12-24 15:16 | NUR ---
Patient sleeping at this time. No s/s of distress. Will continue to monitor Q1h and PRN.
--- NOTE | 2019-12-24 16:20 | NUR ---
Dr. Hatfield at bedside. Informed Dr. Hatfield patient is requesting to stay one more night, he does not have anyone at home to help him change his dressings or help him up, he would like to stay until the morning. Dr. Hatfield agreed orders received, read back and verified to discharge in the morning and discontinue leo catheter.
[2019-12-24 16:48] VITALS: BP 107/65
--- NOTE | 2019-12-24 17:30 | NUR ---
Incentive Spirometer given to patient per orders. Educated patient to use IS, and placed at bedside.
--- NOTE | 2019-12-24 17:40 | NUR ---
Discontinued Leo Catheter. Using clean technique, removed leo catheter, patient tolerated well, 250 ml of urine output in leo. Urinal placed at bedside for patient use.
--- NOTE | 2019-12-24 17:50 | NUR ---
Assisted patient up to chair to eat. Patient was able to transfer independently with standby assist, patient very fatigued after. Patient was able to sit in chair for 15 minutes and eat very little dinner. Patient transferred back to bed with standby assist. Incision sites are intact, dressings clean and dry no signs and symptoms of bleeding or hematoma at this time. Will continue to monitor. Patient back in bed, at lowest, locked position, call light within reach, bed alarm on.
[2019-12-24] MEDS: TAMSULOSIN HYDROCHLORIDE 0.4 MG CAP PO SCH (17:55)
--- NOTE | 2019-12-24 19:24 | NUR ---
RECEIVED PATIENT FROM DAY SHIFT RN. PATIENT RESTING IN BED. NO S/S OF DISTRESS NOTED.DENIED PAIN FOR NOW. DRESSING BL GROIN C/D/I. NO S/S OF ACTIVE BLEEDING NOTED, BUT BRUISE. PATIENT STATED COMFORTABLE NOW. POC INSTRUCTED AND ENCOURAGED PATIENT TO CALL FOR PIECE CUTTER IF NEEDED. BED IN LOWEST POSITION WITH SIDE RAILS UP X 2. CALL BAE WITHIN REACH. ALARM ON. CONTINUE TO MONITOR FOR CHANGES Q1H AND PRN.
[2019-12-24] MEDS: ATORVASTATIN 20 MG TAB PO SCH (21:51)
--- NOTE | 2019-12-24 21:55 | NUR ---
PATIENT RESTING IN BED WITH EYES CLOSED. NO S/S OF DISTRESS NOTED. CONTINUE TO MONITOR.
[2019-12-24 22:00] VITALS: BP 101/50
--- NOTE | 2019-12-24 22:27 | NUR ---
REPORT GIVEN TO CORRINE IBARRA.
--- NOTE | 2019-12-24 22:28 | NUR ---
Received report from Yara Alba to assume care.
--- NOTE | 2019-12-24 22:30 | NUR ---
Opening Shift Note Assumed care of patient, awake and alert. No S/S of distress/SOB or pain. Instructed on POC and to call for assist PRN, will continue to monitor for changes Q1hr and PRN.
[2019-12-25 05:00] VITALS: BP 145/69
--- NOTE | 2019-12-25 07:00 | NUR ---
Opening Shift Note received report on the patient. Awake lying in bed. Patient shows no signs of distress at this time. Discussed plan for discharge this morning. Bed in lowest position, side rails up x2, and the call light is within reach. Will continue to monitor.
--- NOTE | 2019-12-25 07:26 | NUR ---
Report given to Yara Mckeon, patient is resting no distress, for discharge today.
[2019-12-25 07:30] VITALS: BP 107/65
[2019-12-25 08:09] VITALS: BP 162/70
[2019-12-25 08:32] VITALS: BP 162/70
[2019-12-25] MEDS: CARVEDILOL 3.125 MG TAB PO SCH (08:53)
== END 2019-12-25 09:54 | disposition home or self-care (01) | DRG 300 ==
LOC: CATH 07:02 → TELE-WESTW 15:30
PROVIDERS: ADMIT Internal Medicine Cardiovascular Disease; ATTEND Internal Medicine Cardiovascular Disease
DX: I71.4 Abdominal aortic aneurysm, without rupture (principal); I50.42 Chronic combined systolic (congestive) and diastolic (congestive) heart failure; I11.0 Hypertensive heart disease with heart failure; E66.9 Obesity, unspecified; I25.10 Atherosclerotic heart disease of native coronary artery without angina pectoris; I73.9 Peripheral vascular disease, unspecified; E78.5 Hyperlipidemia, unspecified; J44.9 Chronic obstructive pulmonary disease, unspecified; I48.91 Unspecified atrial fibrillation; Z86.711 Personal history of pulmonary embolism; Z99.81 Dependence on supplemental oxygen; Z79.899 Other long term (current) drug therapy; Z79.82 Long term (current) use of aspirin; Z80.52 Family history of malignant neoplasm of bladder; Z80.42 Family history of malignant neoplasm of prostate
CPT/HCPCS: 36415; 80053; 85025; 85610; 85730; 86850; 86900; 86901; 86920; 93005; 99152; 99153; G0378; J2250; J2405

== ENCOUNTER 2020-02-16 15:42 | Inpatient (IN) | payer OTHER ==
[~2020-02-16] VITALS: Ht 188 cm; Wt 96.6 kg
[2020-02-16] MEDS ORDERED: PROMETHAZINE HCL 25 MG/ML 1ML IV ONE (16:15)
[2020-02-16] MEDS ORDERED: SODIUM CHLORIDE 0.9% 500 ML IVB ONE (17:23)
[2020-02-16 17:43] LABS: Basophils # (auto) 0 10 ^3/uL (0-0.2); Basophils % (auto) 0.3 % (0.0-2.0); Eosinophils # (auto) 0.1 10 ^3/uL (0-0.8); Eosinophils % (auto) 0.5 % (0.0-7.0); Lymphocytes # (auto) 0.9 10 ^3/uL (0.4-5.4); Monocytes # (auto) 0.6 10 ^3/uL (0-1.3); Neutrophils # (auto) 10.4 10 ^3/uL (1.6-8.6)
[2020-02-16 17:46] LABS: Hematocrit 39.8 % (41.0-53.0); Hemoglobin 12.9 g/dL (13.5-17.5); Lymphocytes % (auto) 7.7 % (10.0-50.0); Mean Corpuscular Hemoglobin 27.1 pg (28.0-32.0); Mean Corpuscular Hgb Conc. 32.4 g/dL (32.0-36.0); Mean Corpuscular Volume 83.6 fL (80.0-100.0); Monocytes % (auto) 5.1 % (0.0-12.0); Neutrophils % (auto) 86.4 % (37.0-80.0); Platelet Count (auto) 239 10^3/uL (140-450); Red Blood Cells 4.76 10^6/uL (4.5-5.90); Red Cell Distribution Width 16.8 % (11.8-14.3); White Blood Cell 12.1 10^3/uL (4.4-10.8)
[2020-02-16 17:58] LABS: INR 2.74 (0.9-1.15); Partial Thromboplastin Time 39.8 sec (23.64-32.05)
[2020-02-16 18:00] LABS: Potassium 4.1 mmol/L (3.5-5.1)
[2020-02-16 18:10] LABS: BUN/Creatinine Ratio 22.3; Bilirubin, Total 0.4 mg/dL (0.2-1.0); Calcium 8.9 mg/dL (8.5-10.1); Total Protein 7.2 g/dL (6.4-8.2)
[2020-02-16] MEDS ORDERED: ACETAMINOPHEN 325 MG TAB PO PRN (22:30)
[2020-02-16] MEDS ORDERED: MORPHINE SULF INJ 2 MG/ML SYRINGE 1ML IV PRN (22:30)
[2020-02-16] MEDS ORDERED: TEMAZEPAM 15 MG CAP PO PRN (22:30)
[2020-02-16] MEDS ORDERED: MORPHINE SULFATE 4 MG/ML SYR/VIAL IV PRN (22:30)
[2020-02-16] MEDS ORDERED: NITROGLYCERIN 0.4 MG SL TAB SL PRN (22:30)
[2020-02-16] MEDS ORDERED: ONDANSETRON HCL 4 MG/2 ML VIAL IV PRN (22:30)
[2020-02-16 23:42] LABS: Urine Bacteria MOD /hpf (None Seen); Urine Blood 2+ /uL (Negative); Urine Hyaline Cast FEW /lpf (0 - 2); Urine Specific Gravity 1.016 (1.001-1.035); Urine WBC 233 /hpf (0 - 3); Urine WBC Clumps PRESENT /hpf (None Seen)
[2020-02-17] MEDS ORDERED: cefTRIAXone 1GM/50ML D5W 50 ML IV ONE ×2 (01:15→11:30)
[2020-02-17] MEDS: HYDROcodone-ACET 5/325MG TAB PO PRN ×2 (04:20→19:49)
[2020-02-17] MEDS ORDERED: cloNIDine HCL 0.1 MG TAB PO ONE (05:00)
[2020-02-17 07:03] LABS: Basophils # (auto) 0.1 10 ^3/uL (0-0.2); Basophils % (auto) 0.6 % (0.0-2.0); Eosinophils # (auto) 0.1 10 ^3/uL (0-0.8); Eosinophils % (auto) 0.9 % (0.0-7.0); Hematocrit 37.9 % (41.0-53.0); Hemoglobin 12.6 g/dL (13.5-17.5); Lymphocytes # (auto) 1.3 10 ^3/uL (0.4-5.4); Lymphocytes % (auto) 13.1 % (10.0-50.0); Mean Corpuscular Hemoglobin 27.6 pg (28.0-32.0); Mean Corpuscular Hgb Conc. 33.3 g/dL (32.0-36.0); Mean Corpuscular Volume 82.8 fL (80.0-100.0); Monocytes # (auto) 0.7 10 ^3/uL (0-1.3); Monocytes % (auto) 7.2 % (0.0-12.0); Neutrophils % (auto) 78.2 % (37.0-80.0); Platelet Count (auto) 220 10^3/uL (140-450); Red Blood Cells 4.58 10^6/uL (4.5-5.90); Red Cell Distribution Width 16.8 % (11.8-14.3); White Blood Cell 10.3 10^3/uL (4.4-10.8)
[2020-02-17 07:31] LABS: Calcium 8.6 mg/dL (8.5-10.1); Potassium 4.3 mmol/L (3.5-5.1)
[2020-02-17 07:34] LABS: BUN/Creatinine Ratio 20.8
[2020-02-17] MEDS ORDERED: CARVEDILOL 3.125 MG TAB PO SCH (08:00)
[2020-02-17 09:00] VITALS: BP 86/57
[2020-02-17] MEDS ORDERED: cefTRIAXone 1GM/50ML D5W 50 ML IV SCH (09:00)
[2020-02-17] MEDS: PANTOPRAZOLE 40 MG TAB PO SCH (09:57)
[2020-02-17] MEDS ORDERED: LISINOPRIL 10 MG TAB PO SCH (10:00)
[2020-02-17] MEDS ORDERED: FUROSEMIDE 40 MG TAB PO SCH (10:00)
[2020-02-17] MEDS ORDERED: SODIUM CHLORIDE 0.9% 250 ML IV ONE ×2 (11:30→14:15)
[2020-02-17 11:31] VITALS: BP 86/57
[2020-02-17 13:00] VITALS: BP 73/53
[2020-02-17] MEDS: SODIUM CHLORIDE 0.9% 1,000 ML IV SCH (13:04)
[2020-02-17] MEDS: IPRATROPIUM BROM 0.5 MG/2.5ML INH SOL NEB SCH ×2 (13:21→19:04)
[2020-02-17 14:31] LABS: Basophils # (auto) 0.1 10 ^3/uL (0-0.2); Basophils % (auto) 0.5 % (0.0-2.0); Eosinophils # (auto) 0 10 ^3/uL (0-0.8); Eosinophils % (auto) 0.2 % (0.0-7.0); Hematocrit 39.8 % (41.0-53.0); Hemoglobin 12.6 g/dL (13.5-17.5); Lymphocytes # (auto) 1.1 10 ^3/uL (0.4-5.4); Lymphocytes % (auto) 9.6 % (10.0-50.0); Mean Corpuscular Hgb Conc. 31.6 g/dL (32.0-36.0); Mean Corpuscular Volume 85.5 fL (80.0-100.0); Monocytes # (auto) 0.6 10 ^3/uL (0-1.3); Monocytes % (auto) 5.9 % (0.0-12.0); Neutrophils # (auto) 9.2 10 ^3/uL (1.6-8.6); Neutrophils % (auto) 83.8 % (37.0-80.0); Nucleated Red Blood Cells % 0.1 %; Platelet Count (auto) 221 10^3/uL (140-450); Red Blood Cells 4.66 10^6/uL (4.5-5.90); Red Cell Distribution Width 16.8 % (11.8-14.3)
[2020-02-17 14:51] VITALS: BP 89/57
[2020-02-17] MEDS ORDERED: LISI10TA6 PO (15:32)
[2020-02-17] MEDS ORDERED: ALBUAER3 IN (15:34)
[2020-02-17] MEDS ORDERED: TRIA0.5C10 TOP (15:40)
[2020-02-17] MEDS ORDERED: TRIA0.5O2 TOP (15:44)
[2020-02-17] MEDS ORDERED: AZEL0.1S (15:47)
[2020-02-17 17:00] VITALS: BP 105/68
[2020-02-17] MEDS: CARVEDILOL 3.125 MG TAB PO SCH (18:00)
[2020-02-17] MEDS: TAMSULOSIN HYDROCHLORIDE 0.4 MG CAP PO SCH (18:00)
[2020-02-17] MEDS: ATORVASTATIN 20 MG TAB PO SCH (21:15)
[2020-02-17 22:00] VITALS: BP 99/63
[2020-02-17] MEDS: MORPHINE SULF INJ 2 MG/ML SYRINGE 1ML IV PRN (22:21)
[2020-02-18] MEDS: SODIUM CHLORIDE 0.9% 1,000 ML IV SCH ×2 (00:50→13:40)
[2020-02-18] MEDS: MORPHINE SULF INJ 2 MG/ML SYRINGE 1ML IV PRN ×4 (03:55→23:30)
[2020-02-18 05:00] VITALS: BP 139/99
[2020-02-18] MEDS: IPRATROPIUM BROM 0.5 MG/2.5ML INH SOL NEB SCH ×3 (06:19→18:52)
[2020-02-18 07:37] LABS: Basophils # (auto) 0.1 10 ^3/uL (0-0.2); Basophils % (auto) 0.6 % (0.0-2.0); Eosinophils # (auto) 0.1 10 ^3/uL (0-0.8); Eosinophils % (auto) 1.3 % (0.0-7.0); Hematocrit 39.8 % (41.0-53.0); Hemoglobin 12.8 g/dL (13.5-17.5); Lymphocytes # (auto) 1.3 10 ^3/uL (0.4-5.4); Lymphocytes % (auto) 11.5 % (10.0-50.0); Mean Corpuscular Hemoglobin 27.5 pg (28.0-32.0); Mean Corpuscular Hgb Conc. 32.2 g/dL (32.0-36.0); Mean Corpuscular Volume 85.3 fL (80.0-100.0); Monocytes # (auto) 0.6 10 ^3/uL (0-1.3); Monocytes % (auto) 5.9 % (0.0-12.0); Neutrophils # (auto) 8.8 10 ^3/uL (1.6-8.6); Neutrophils % (auto) 80.7 % (37.0-80.0); Platelet Count (auto) 204 10^3/uL (140-450); Red Blood Cells 4.66 10^6/uL (4.5-5.90); Red Cell Distribution Width 16.8 % (11.8-14.3); White Blood Cell 10.9 10^3/uL (4.4-10.8)
[2020-02-18 07:51] LABS: INR 2.36 (0.9-1.15); Partial Thromboplastin Time 44.4 sec (23.64-32.05)
[2020-02-18 07:55] LABS: BUN/Creatinine Ratio 20.4; Calcium 8.5 mg/dL (8.5-10.1); Potassium 4.7 mmol/L (3.5-5.1)
[2020-02-18] MEDS: HYDROcodone-ACET 5/325MG TAB PO PRN (08:30)
[2020-02-18] MEDS: cefTRIAXone 1GM/50ML D5W 50 ML IV SCH (08:31)
[2020-02-18] MEDS: CARVEDILOL 3.125 MG TAB PO SCH ×2 (08:31→18:14)
[2020-02-18 09:02] VITALS: BP 144/101
[2020-02-18] MEDS: PANTOPRAZOLE 40 MG TAB PO SCH (10:44)
[2020-02-18 13:00] VITALS: BP 128/91
[2020-02-18 17:08] VITALS: BP 119/79
[2020-02-18] MEDS: TAMSULOSIN HYDROCHLORIDE 0.4 MG CAP PO SCH (18:13)
[2020-02-18 22:00] VITALS: BP 117/78
[2020-02-18] MEDS: ATORVASTATIN 20 MG TAB PO SCH (22:00)
[2020-02-19 05:00] VITALS: BP 153/97
[2020-02-19] MEDS: HYDROcodone-ACET 5/325MG TAB PO PRN ×4 (05:15→20:56)
[2020-02-19] MEDS: MORPHINE SULF INJ 2 MG/ML SYRINGE 1ML IV PRN ×3 (05:45→18:17)
[2020-02-19] MEDS: SODIUM CHLORIDE 0.9% 1,000 ML IV SCH ×2 (05:45→14:24)
[2020-02-19] MEDS: IPRATROPIUM BROM 0.5 MG/2.5ML INH SOL NEB SCH ×3 (06:25→18:51)
[2020-02-19 07:17] LABS: Basophils # (auto) 0.1 10 ^3/uL (0-0.2); Basophils % (auto) 0.8 % (0.0-2.0); Eosinophils # (auto) 0.5 10 ^3/uL (0-0.8); Eosinophils % (auto) 5.7 % (0.0-7.0); Hematocrit 37.9 % (41.0-53.0); Hemoglobin 12.2 g/dL (13.5-17.5); Lymphocytes # (auto) 0.9 10 ^3/uL (0.4-5.4); Lymphocytes % (auto) 10.4 % (10.0-50.0); Mean Corpuscular Hemoglobin 27.5 pg (28.0-32.0); Mean Corpuscular Hgb Conc. 32.3 g/dL (32.0-36.0); Monocytes # (auto) 0.6 10 ^3/uL (0-1.3); Neutrophils # (auto) 6.9 10 ^3/uL (1.6-8.6); Neutrophils % (auto) 76.1 % (37.0-80.0); Platelet Count (auto) 166 10^3/uL (140-450); Red Blood Cells 4.46 10^6/uL (4.5-5.90); Red Cell Distribution Width 16.6 % (11.8-14.3); White Blood Cell 9.1 10^3/uL (4.4-10.8)
[2020-02-19 07:29] LABS: BUN/Creatinine Ratio 26.8; Calcium 8.4 mg/dL (8.5-10.1); Magnesium 2.1 mg/dL (1.6-2.6); Potassium 4.7 mmol/L (3.5-5.1)
[2020-02-19 07:31] LABS: INR 2.17 (0.9-1.15)
[2020-02-19] MEDS: CARVEDILOL 3.125 MG TAB PO SCH ×2 (08:48→18:17)
[2020-02-19] MEDS: cefTRIAXone 1GM/50ML D5W 50 ML IV SCH (08:48)
[2020-02-19 09:00] VITALS: BP 137/88
[2020-02-19] MEDS: PANTOPRAZOLE 40 MG TAB PO SCH (10:03)
[2020-02-19 11:06] LABS: Urine Bacteria FEW /hpf (None Seen); Urine Blood 1+ /uL (Negative); Urine Mucus FEW (None Seen); Urine Specific Gravity 1.016 (1.001-1.035); Urine WBC 7 /hpf (0 - 3)
[2020-02-19 13:00] VITALS: BP 143/79
[2020-02-19 17:00] VITALS: BP 141/94
[2020-02-19] MEDS: TAMSULOSIN HYDROCHLORIDE 0.4 MG CAP PO SCH (18:17)
[2020-02-19 21:00] VITALS: BP 122/75
[2020-02-19] MEDS: ATORVASTATIN 20 MG TAB PO SCH (22:19)
[2020-02-20] MEDS: MORPHINE SULF INJ 2 MG/ML SYRINGE 1ML IV PRN ×6 (00:17→22:43)
[2020-02-20 05:00] VITALS: BP 112/71
[2020-02-20 06:09] LABS: Potassium 4.5 mmol/L (3.5-5.1)
[2020-02-20 06:10] LABS: INR 2.07 (0.9-1.15)
[2020-02-20 06:15] LABS: BUN/Creatinine Ratio 29.3; Calcium 8.4 mg/dL (8.5-10.1)
[2020-02-20] MEDS: SODIUM CHLORIDE 0.9% 1,000 ML IV SCH ×2 (06:18→11:11)
[2020-02-20] MEDS: IPRATROPIUM BROM 0.5 MG/2.5ML INH SOL NEB SCH ×3 (06:43→18:59)
[2020-02-20] MEDS: CARVEDILOL 3.125 MG TAB PO SCH ×2 (07:49→17:40)
[2020-02-20] MEDS: cefTRIAXone 1GM/50ML D5W 50 ML IV SCH (08:58)
[2020-02-20 09:00] VITALS: BP 154/87
[2020-02-20] MEDS: PANTOPRAZOLE 40 MG TAB PO SCH (10:39)
[2020-02-20] MEDS ORDERED: PHYTONADIONE (VIT K)10 MG/ML 1ML VIAL SUBCUT ONE (12:00)
[2020-02-20 12:25] LABS: Urine Bacteria FEW /hpf (None Seen); Urine Blood 1+ /uL (Negative); Urine Mucus FEW (None Seen); Urine Specific Gravity 1.014 (1.001-1.035); Urine WBC 6 /hpf (0 - 3)
[2020-02-20] MEDS: HYDROcodone-ACET 5/325MG TAB PO PRN ×3 (12:26→20:29)
[2020-02-20 13:00] VITALS: BP 134/77
[2020-02-20 14:24] VITALS: BP 134/77
[2020-02-20 17:00] VITALS: BP 153/78
[2020-02-20] MEDS: TAMSULOSIN HYDROCHLORIDE 0.4 MG CAP PO SCH (17:40)
[2020-02-20 21:00] VITALS: BP_SYST 126; BP_SYST 140; BP_DIAS 70; BP_DIAS 73
[2020-02-20] MEDS: ATORVASTATIN 20 MG TAB PO SCH (22:42)
[2020-02-21] MEDS: HYDROcodone-ACET 5/325MG TAB PO PRN ×4 (00:38→16:20)
[2020-02-21] MEDS: MORPHINE SULF INJ 2 MG/ML SYRINGE 1ML IV PRN ×5 (02:44→22:03)
[2020-02-21 04:30] VITALS: BP 127/70
[2020-02-21] MEDS: IPRATROPIUM BROM 0.5 MG/2.5ML INH SOL NEB SCH ×3 (06:08→18:49)
[2020-02-21 06:54] LABS: INR 1.36 (0.9-1.15)
[2020-02-21 06:57] LABS: Potassium 4.9 mmol/L (3.5-5.1)
[2020-02-21 07:05] LABS: BUN/Creatinine Ratio 26.3; Calcium 8.5 mg/dL (8.5-10.1)
[2020-02-21] MEDS: SODIUM CHLORIDE 0.9% 1,000 ML IV SCH (07:15)
[2020-02-21 08:00] VITALS: BP 154/82
[2020-02-21] MEDS: cefTRIAXone 1GM/50ML D5W 50 ML IV SCH (08:12)
[2020-02-21] MEDS: CARVEDILOL 3.125 MG TAB PO SCH ×2 (08:12→17:56)
[2020-02-21] MEDS: PANTOPRAZOLE 40 MG TAB PO SCH (09:29)
[2020-02-21 09:50] LABS: Urine Bacteria FEW /hpf (None Seen); Urine Blood TRACE /uL (Negative); Urine Specific Gravity 1.016 (1.001-1.035); Urine WBC 2 /hpf (0 - 3)
[2020-02-21 12:00] VITALS: BP 157/95
[2020-02-21 17:00] VITALS: BP 156/97
[2020-02-21] MEDS: TAMSULOSIN HYDROCHLORIDE 0.4 MG CAP PO SCH (17:55)
[2020-02-21 22:00] VITALS: BP 142/87
[2020-02-21] MEDS: ATORVASTATIN 20 MG TAB PO SCH (22:05)
[2020-02-22] MEDS: HYDROcodone-ACET 5/325MG TAB PO PRN ×4 (00:10→21:31)
[2020-02-22] MEDS: SODIUM CHLORIDE 0.9% 1,000 ML IV SCH ×2 (01:30→23:15)
[2020-02-22] MEDS: MORPHINE SULF INJ 2 MG/ML SYRINGE 1ML IV PRN ×5 (02:03→23:04)
[2020-02-22 05:00] VITALS: BP 157/84
[2020-02-22 06:42] LABS: Basophils # (auto) 0 10 ^3/uL (0-0.2); Basophils % (auto) 0.5 % (0.0-2.0); Eosinophils # (auto) 0.2 10 ^3/uL (0-0.8); Eosinophils % (auto) 2.6 % (0.0-7.0); Hematocrit 36.6 % (41.0-53.0); Lymphocytes # (auto) 1.1 10 ^3/uL (0.4-5.4); Lymphocytes % (auto) 15.7 % (10.0-50.0); Mean Corpuscular Hemoglobin 27.8 pg (28.0-32.0); Mean Corpuscular Hgb Conc. 32.8 g/dL (32.0-36.0); Mean Corpuscular Volume 84.5 fL (80.0-100.0); Monocytes # (auto) 0.6 10 ^3/uL (0-1.3); Monocytes % (auto) 8.6 % (0.0-12.0); Neutrophils # (auto) 5.3 10 ^3/uL (1.6-8.6); Neutrophils % (auto) 72.6 % (37.0-80.0); Nucleated Red Blood Cells % 0.1 %; Platelet Count (auto) 160 10^3/uL (140-450); Red Blood Cells 4.34 10^6/uL (4.5-5.90); Red Cell Distribution Width 16.1 % (11.8-14.3); White Blood Cell 7.3 10^3/uL (4.4-10.8)
[2020-02-22 06:59] LABS: INR 1.21 (0.9-1.15); Partial Thromboplastin Time 31.9 sec (23.64-32.05)
[2020-02-22] MEDS: IPRATROPIUM BROM 0.5 MG/2.5ML INH SOL NEB SCH ×3 (07:34→18:41)
[2020-02-22] MEDS: CARVEDILOL 3.125 MG TAB PO SCH ×2 (08:00→17:13)
[2020-02-22] MEDS ORDERED: fentaNYL CITRATE 100 MCG/2 ML VL ONE (08:02)
[2020-02-22] MEDS ORDERED: MIDAZOLAM HCL 1MG/1ML-2 ML VIAL ONE ×2 (08:02→09:10)
[2020-02-22] MEDS ORDERED: PHENYLEPHRINE HCL 10 MG/ML VL IV ONE (08:21)
[2020-02-22] MEDS ORDERED: PROPOFOL 10 MG/ML 20 ML IV ONE (08:21)
[2020-02-22] MEDS ORDERED: DexAMETHasone SOD PHOS 10MG/1ML VIAL INJ IV ONE (08:21)
[2020-02-22] MEDS ORDERED: ceFAZolin 1GM/50ML 50 ML IV ONE (08:28)
[2020-02-22] MEDS: cefTRIAXone 1GM/50ML D5W 50 ML IV SCH (09:00)
[2020-02-22] MEDS: PANTOPRAZOLE 40 MG TAB PO SCH (10:00)
[2020-02-22] MEDS ORDERED: LABETALOL HCL 5 MG/ML 4ML SYRINGE IV PRN ×2 (11:00→17:30)
[2020-02-22] MEDS ORDERED: MIDAZOLAM HCL 1MG/1ML-2 ML VIAL IV PRN (11:00)
[2020-02-22] MEDS ORDERED: HYDROmorphone HCL 2 MG/ML VL IV PRN (11:00)
[2020-02-22] MEDS ORDERED: MORPHINE SULFATE 4 MG/ML SYR/VIAL IV PRN (11:00)
[2020-02-22] MEDS ORDERED: ONDANSETRON HCL 4 MG/2 ML VIAL IV PRN (11:00)
[2020-02-22] MEDS ORDERED: ePHEDrine SULFATE 50 MG/ML AMP IV PRN (11:00)
[2020-02-22 11:52] VITALS: BP 140/86
[2020-02-22] MEDS: ceFAZolin 1GM/50ML 50 ML IV SCH ×2 (14:10→20:00)
[2020-02-22] MEDS: TAMSULOSIN HYDROCHLORIDE 0.4 MG CAP PO SCH (17:13)
[2020-02-22 17:15] VITALS: BP 195/90
[2020-02-22 20:00] VITALS: BP 159/98
[2020-02-22] MEDS: ATORVASTATIN 20 MG TAB PO SCH (21:33)
[2020-02-22 22:00] VITALS: BP 159/89
[2020-02-23] MEDS: ceFAZolin 1GM/50ML 50 ML IV SCH ×4 (02:00→20:26)
[2020-02-23] MEDS: MORPHINE SULF INJ 2 MG/ML SYRINGE 1ML IV PRN ×5 (04:34→21:47)
[2020-02-23 05:00] VITALS: BP 167/65
[2020-02-23 05:52] LABS: Basophils # (auto) 0 10 ^3/uL (0-0.2); Basophils % (auto) 0.2 % (0.0-2.0); Eosinophils # (auto) 0 10 ^3/uL (0-0.8); Lymphocytes # (auto) 0.8 10 ^3/uL (0.4-5.4); Lymphocytes % (auto) 7.7 % (10.0-50.0); Mean Corpuscular Hemoglobin 27.8 pg (28.0-32.0); Mean Corpuscular Hgb Conc. 33.4 g/dL (32.0-36.0); Mean Corpuscular Volume 83.4 fL (80.0-100.0); Monocytes # (auto) 0.9 10 ^3/uL (0-1.3); Monocytes % (auto) 9.3 % (0.0-12.0); Neutrophils # (auto) 8.3 10 ^3/uL (1.6-8.6); Neutrophils % (auto) 82.8 % (37.0-80.0); Platelet Count (auto) 171 10^3/uL (140-450); Red Blood Cells 4.32 10^6/uL (4.5-5.90); Red Cell Distribution Width 15.8 % (11.8-14.3)
[2020-02-23] MEDS: IPRATROPIUM BROM 0.5 MG/2.5ML INH SOL NEB SCH ×3 (06:34→18:53)
[2020-02-23 06:38] LABS: BUN/Creatinine Ratio 26.9; Calcium 8.4 mg/dL (8.5-10.1); Potassium 4.4 mmol/L (3.5-5.1)
[2020-02-23] MEDS: CARVEDILOL 3.125 MG TAB PO SCH ×2 (08:00→17:32)
[2020-02-23] MEDS: HYDROcodone-ACET 5/325MG TAB PO PRN ×4 (08:00→20:28)
[2020-02-23 09:00] VITALS: BP 159/101
[2020-02-23] MEDS: PANTOPRAZOLE 40 MG TAB PO SCH (09:06)
[2020-02-23] MEDS: ENOXAPARIN SOD 40 MG/0.4 ML SYRINGE SC SCH (09:08)
[2020-02-23] MEDS ORDERED: LISINOPRIL 10 MG TAB PO ONE (11:15)
[2020-02-23] MEDS ORDERED: POTASSIUM CHL 10 Meq TABLET PO ONE (11:15)
[2020-02-23] MEDS ORDERED: FUROSEMIDE 20 MG/2 ML VIAL IV ONE (11:15)
[2020-02-23] MEDS ORDERED: LABETALOL HCL 5 MG/ML 4ML SYRINGE IV PRN (11:15)
[2020-02-23] MEDS ORDERED: POTASSIUM CHL 20 Meq TABLET PO ONE (11:15)
[2020-02-23 13:00] VITALS: BP 137/72
[2020-02-23 14:00] VITALS: BP 137/72
[2020-02-23 17:00] VITALS: BP 147/72
[2020-02-23] MEDS: TAMSULOSIN HYDROCHLORIDE 0.4 MG CAP PO SCH (17:31)
[2020-02-23] MEDS: ATORVASTATIN 20 MG TAB PO SCH (21:47)
[2020-02-23 22:00] VITALS: BP 135/78
[2020-02-24] MEDS: HYDROcodone-ACET 5/325MG TAB PO PRN ×2 (00:51→08:07)
[2020-02-24] MEDS: MORPHINE SULF INJ 2 MG/ML SYRINGE 1ML IV PRN ×6 (01:32→23:01)
[2020-02-24] MEDS: ceFAZolin 1GM/50ML 50 ML IV SCH ×4 (02:17→20:18)
[2020-02-24 05:00] VITALS: BP 149/82
[2020-02-24] MEDS: IPRATROPIUM BROM 0.5 MG/2.5ML INH SOL NEB SCH ×4 (05:53→19:10)
[2020-02-24 05:56] LABS: Basophils # (auto) 0 10 ^3/uL (0-0.2); Basophils % (auto) 0.4 % (0.0-2.0); Eosinophils # (auto) 0.1 10 ^3/uL (0-0.8); Eosinophils % (auto) 0.6 % (0.0-7.0); Hematocrit 34.1 % (41.0-53.0); Lymphocytes # (auto) 1.7 10 ^3/uL (0.4-5.4); Lymphocytes % (auto) 15.3 % (10.0-50.0); Mean Corpuscular Hemoglobin 27.1 pg (28.0-32.0); Mean Corpuscular Hgb Conc. 32.4 g/dL (32.0-36.0); Mean Corpuscular Volume 83.9 fL (80.0-100.0); Monocytes # (auto) 0.9 10 ^3/uL (0-1.3); Monocytes % (auto) 8.2 % (0.0-12.0); Neutrophils # (auto) 8.4 10 ^3/uL (1.6-8.6); Neutrophils % (auto) 75.5 % (37.0-80.0); Platelet Count (auto) 169 10^3/uL (140-450); Red Blood Cells 4.07 10^6/uL (4.5-5.90); Red Cell Distribution Width 16.3 % (11.8-14.3); White Blood Cell 11.2 10^3/uL (4.4-10.8)
[2020-02-24 06:19] LABS: Potassium 4.6 mmol/L (3.5-5.1)
[2020-02-24 06:26] LABS: BUN/Creatinine Ratio 31.6; Calcium 8.5 mg/dL (8.5-10.1)
[2020-02-24] MEDS: PANTOPRAZOLE 40 MG TAB PO SCH (08:06)
[2020-02-24] MEDS: CARVEDILOL 3.125 MG TAB PO SCH ×2 (08:07→17:05)
[2020-02-24] MEDS: FUROSEMIDE 40 MG TAB PO SCH (08:07)
[2020-02-24] MEDS: ENOXAPARIN SOD 40 MG/0.4 ML SYRINGE SC SCH (08:09)
[2020-02-24 09:00] VITALS: BP 179/86
[2020-02-24 13:00] VITALS: BP 139/71
[2020-02-24 13:02] LABS: INR 1.15 (0.9-1.15); Partial Thromboplastin Time 30.5 sec (23.64-32.05)
[2020-02-24] MEDS ORDERED: WARFARIN SODIUM 5 MG TAB PO ONE (17:00)
[2020-02-24 17:04] VITALS: BP 100/63
[2020-02-24] MEDS: TAMSULOSIN HYDROCHLORIDE 0.4 MG CAP PO SCH (17:05)
[2020-02-24] MEDS: ATORVASTATIN 20 MG TAB PO SCH (21:33)
[2020-02-24 23:04] VITALS: BP 107/66
[2020-02-25] MEDS: ceFAZolin 1GM/50ML 50 ML IV SCH ×4 (01:50→20:43)
[2020-02-25] MEDS: MORPHINE SULF INJ 2 MG/ML SYRINGE 1ML IV PRN ×5 (03:12→23:23)
[2020-02-25 05:15] VITALS: BP 132/72
[2020-02-25] MEDS: IPRATROPIUM BROM 0.5 MG/2.5ML INH SOL NEB SCH ×3 (05:56→19:21)
[2020-02-25 06:20] LABS: Basophils # (auto) 0 10 ^3/uL (0-0.2); Basophils % (auto) 0.5 % (0.0-2.0); Eosinophils # (auto) 0.2 10 ^3/uL (0-0.8); Eosinophils % (auto) 2.2 % (0.0-7.0); Hematocrit 33.1 % (41.0-53.0); Hemoglobin 10.7 g/dL (13.5-17.5); Lymphocytes # (auto) 1.5 10 ^3/uL (0.4-5.4); Lymphocytes % (auto) 16.8 % (10.0-50.0); Mean Corpuscular Hemoglobin 27.2 pg (28.0-32.0); Mean Corpuscular Hgb Conc. 32.4 g/dL (32.0-36.0); Mean Corpuscular Volume 83.8 fL (80.0-100.0); Monocytes # (auto) 0.9 10 ^3/uL (0-1.3); Monocytes % (auto) 10.1 % (0.0-12.0); Neutrophils # (auto) 6.1 10 ^3/uL (1.6-8.6); Neutrophils % (auto) 70.4 % (37.0-80.0); Platelet Count (auto) 173 10^3/uL (140-450); Red Blood Cells 3.95 10^6/uL (4.5-5.90); Red Cell Distribution Width 16.2 % (11.8-14.3); White Blood Cell 8.7 10^3/uL (4.4-10.8)
[2020-02-25 06:36] LABS: INR 1.11 (0.9-1.15)
[2020-02-25] MEDS: ENOXAPARIN SOD 40 MG/0.4 ML SYRINGE SC SCH (08:12)
[2020-02-25] MEDS: CARVEDILOL 3.125 MG TAB PO SCH ×2 (08:12→17:23)
[2020-02-25] MEDS: PANTOPRAZOLE 40 MG TAB PO SCH (08:13)
[2020-02-25] MEDS: FUROSEMIDE 40 MG TAB PO SCH (08:13)
[2020-02-25 08:32] VITALS: BP 148/89
[2020-02-25 12:35] VITALS: BP 136/84
[2020-02-25] MEDS ORDERED: WARFARIN SODIUM 2.5 MG TAB PO ONE (17:00)
[2020-02-25 17:09] VITALS: BP 148/88
[2020-02-25] MEDS: TAMSULOSIN HYDROCHLORIDE 0.4 MG CAP PO SCH (17:23)
[2020-02-25 22:00] VITALS: BP 152/79
[2020-02-25] MEDS: ATORVASTATIN 20 MG TAB PO SCH (23:22)
[2020-02-26] MEDS: ceFAZolin 1GM/50ML 50 ML IV SCH ×4 (02:00→19:52)
[2020-02-26] MEDS: MORPHINE SULF INJ 2 MG/ML SYRINGE 1ML IV PRN ×5 (03:34→19:52)
[2020-02-26 05:00] VITALS: BP 144/82
[2020-02-26] MEDS: IPRATROPIUM BROM 0.5 MG/2.5ML INH SOL NEB SCH ×3 (06:36→19:16)
[2020-02-26] MEDS: PANTOPRAZOLE 40 MG TAB PO SCH (07:39)
[2020-02-26] MEDS: CARVEDILOL 3.125 MG TAB PO SCH ×2 (07:39→16:58)
[2020-02-26] MEDS: FUROSEMIDE 40 MG TAB PO SCH (07:40)
[2020-02-26] MEDS: ENOXAPARIN SOD 40 MG/0.4 ML SYRINGE SC SCH (07:40)
[2020-02-26 08:31] LABS: INR 1.13 (0.9-1.15)
[2020-02-26 09:00] VITALS: BP_SYST 145; BP_SYST 159; BP_DIAS 76; BP_DIAS 80
[2020-02-26 11:32] VITALS: BP 144/82
[2020-02-26] MEDS ORDERED: levoFLOXacin 500 MG TAB PO ONE (12:00)
[2020-02-26 13:00] VITALS: BP 138/69
[2020-02-26] MEDS: TAMSULOSIN HYDROCHLORIDE 0.4 MG CAP PO SCH (16:58)
[2020-02-26 17:00] VITALS: BP 114/84
[2020-02-26] MEDS ORDERED: WARFARIN SODIUM 2.5 MG TAB PO ONE (17:00)
[2020-02-26] MEDS: ATORVASTATIN 20 MG TAB PO SCH (21:59)
[2020-02-26 22:00] VITALS: BP 142/76
[2020-02-27] MEDS: MORPHINE SULF INJ 2 MG/ML SYRINGE 1ML IV PRN ×5 (00:11→22:49)
[2020-02-27] MEDS: LACTULOSE 20Gm/30ML SOLN PO PRN (01:24)
[2020-02-27] MEDS: ceFAZolin 1GM/50ML 50 ML IV SCH ×4 (02:09→20:10)
[2020-02-27 05:00] VITALS: BP 145/76
[2020-02-27 06:46] LABS: Basophils # (auto) 0 10 ^3/uL (0-0.2); Basophils % (auto) 0.4 % (0.0-2.0); Eosinophils # (auto) 0.1 10 ^3/uL (0-0.8); Eosinophils % (auto) 1.3 % (0.0-7.0); Hematocrit 34.6 % (41.0-53.0); Hemoglobin 11.4 g/dL (13.5-17.5); Lymphocytes # (auto) 1.2 10 ^3/uL (0.4-5.4); Lymphocytes % (auto) 13.5 % (10.0-50.0); Mean Corpuscular Hemoglobin 27.9 pg (28.0-32.0); Mean Corpuscular Volume 84.5 fL (80.0-100.0); Monocytes # (auto) 0.6 10 ^3/uL (0-1.3); Monocytes % (auto) 7.4 % (0.0-12.0); Neutrophils # (auto) 6.7 10 ^3/uL (1.6-8.6); Neutrophils % (auto) 77.4 % (37.0-80.0); Nucleated Red Blood Cells % 0.1 %; Platelet Count (auto) 198 10^3/uL (140-450); Red Cell Distribution Width 15.8 % (11.8-14.3); White Blood Cell 8.6 10^3/uL (4.4-10.8)
[2020-02-27 07:04] LABS: Calcium 8.4 mg/dL (8.5-10.1); Potassium 4.1 mmol/L (3.5-5.1)
[2020-02-27 07:07] LABS: BUN/Creatinine Ratio 26.9
[2020-02-27 07:08] LABS: INR 1.17 (0.9-1.15)
[2020-02-27] MEDS: IPRATROPIUM BROM 0.5 MG/2.5ML INH SOL NEB SCH ×3 (08:00→18:34)
[2020-02-27 09:00] VITALS: BP 143/76
[2020-02-27] MEDS: FUROSEMIDE 40 MG TAB PO SCH (09:17)
[2020-02-27] MEDS: PANTOPRAZOLE 40 MG TAB PO SCH (09:18)
[2020-02-27] MEDS: ENOXAPARIN SOD 40 MG/0.4 ML SYRINGE SC SCH (09:18)
[2020-02-27] MEDS: levoFLOXacin 500 MG TAB PO SCH (09:18)
[2020-02-27] MEDS: CARVEDILOL 3.125 MG TAB PO SCH ×2 (10:53→17:50)
[2020-02-27 13:00] VITALS: BP 145/77
[2020-02-27 17:00] VITALS: BP 124/69
[2020-02-27] MEDS ORDERED: WARFARIN SODIUM 2.5 MG TAB PO ONE (17:00)
[2020-02-27] MEDS: TAMSULOSIN HYDROCHLORIDE 0.4 MG CAP PO SCH (17:50)
[2020-02-27] MEDS: ATORVASTATIN 20 MG TAB PO SCH (20:59)
[2020-02-27 22:53] VITALS: BP 114/65
[2020-02-28] MEDS: ceFAZolin 1GM/50ML 50 ML IV SCH ×2 (02:34→08:51)
[2020-02-28] MEDS: MORPHINE SULF INJ 2 MG/ML SYRINGE 1ML IV PRN ×6 (02:35→23:12)
[2020-02-28 05:00] VITALS: BP 140/59
[2020-02-28] MEDS: IPRATROPIUM BROM 0.5 MG/2.5ML INH SOL NEB SCH ×3 (07:33→18:24)
[2020-02-28 07:52] LABS: Basophils # (auto) 0 10 ^3/uL (0-0.2); Basophils % (auto) 0.5 % (0.0-2.0); Eosinophils # (auto) 0.2 10 ^3/uL (0-0.8); Eosinophils % (auto) 2.4 % (0.0-7.0); Hematocrit 33.5 % (41.0-53.0); Hemoglobin 10.9 g/dL (13.5-17.5); Lymphocytes # (auto) 1.4 10 ^3/uL (0.4-5.4); Lymphocytes % (auto) 15.5 % (10.0-50.0); Mean Corpuscular Hemoglobin 27.3 pg (28.0-32.0); Mean Corpuscular Hgb Conc. 32.7 g/dL (32.0-36.0); Mean Corpuscular Volume 83.4 fL (80.0-100.0); Monocytes # (auto) 0.7 10 ^3/uL (0-1.3); Monocytes % (auto) 7.8 % (0.0-12.0); Neutrophils # (auto) 6.7 10 ^3/uL (1.6-8.6); Neutrophils % (auto) 73.8 % (37.0-80.0); Platelet Count (auto) 211 10^3/uL (140-450); Red Blood Cells 4.01 10^6/uL (4.5-5.90); White Blood Cell 9.1 10^3/uL (4.4-10.8)
[2020-02-28 08:05] LABS: INR 1.35 (0.9-1.15)
[2020-02-28 08:07] LABS: Calcium 8.3 mg/dL (8.5-10.1); Potassium 4.1 mmol/L (3.5-5.1)
[2020-02-28] MEDS: CARVEDILOL 3.125 MG TAB PO SCH ×2 (08:51→17:45)
[2020-02-28 09:00] VITALS: BP 146/81
[2020-02-28] MEDS: PANTOPRAZOLE 40 MG TAB PO SCH (10:17)
[2020-02-28] MEDS: ENOXAPARIN SOD 40 MG/0.4 ML SYRINGE SC SCH (10:18)
[2020-02-28] MEDS: levoFLOXacin 500 MG TAB PO SCH (10:18)
[2020-02-28] MEDS: FUROSEMIDE 40 MG TAB PO SCH (10:18)
[2020-02-28 13:00] VITALS: BP 96/49
[2020-02-28 17:00] VITALS: BP 101/57
[2020-02-28] MEDS ORDERED: WARFARIN SODIUM 2.5 MG TAB PO ONE (17:00)
[2020-02-28] MEDS: TAMSULOSIN HYDROCHLORIDE 0.4 MG CAP PO SCH (17:44)
[2020-02-28] MEDS: ATORVASTATIN 20 MG TAB PO SCH (21:53)
[2020-02-28 22:00] VITALS: BP 115/54
[2020-02-29] MEDS: MORPHINE SULF INJ 2 MG/ML SYRINGE 1ML IV PRN ×3 (03:05→11:41)
[2020-02-29 03:23] VITALS: BP 115/54
[2020-02-29 05:32] VITALS: BP 135/69
[2020-02-29] MEDS: IPRATROPIUM BROM 0.5 MG/2.5ML INH SOL NEB SCH ×3 (05:46→18:00)
[2020-02-29 06:08] LABS: INR 1.86 (0.9-1.15)
[2020-02-29] MEDS: CARVEDILOL 3.125 MG TAB PO SCH ×2 (08:09→18:00)
[2020-02-29 08:50] VITALS: BP 138/82
[2020-02-29 09:53] VITALS: BP 123/61
[2020-02-29] MEDS: LACTULOSE 20Gm/30ML SOLN PO PRN (09:59)
[2020-02-29] MEDS: PANTOPRAZOLE 40 MG TAB PO SCH (09:59)
[2020-02-29] MEDS: FUROSEMIDE 40 MG TAB PO SCH (09:59)
[2020-02-29] MEDS: levoFLOXacin 500 MG TAB PO SCH (09:59)
[2020-02-29] MEDS: ENOXAPARIN SOD 40 MG/0.4 ML SYRINGE SC SCH (10:00)
[2020-02-29 13:01] VITALS: BP 105/62
[2020-02-29 16:43] VITALS: BP 134/58
[2020-02-29] MEDS ORDERED: WARFARIN SODIUM 2.5 MG TAB PO ONE (17:00)
[2020-02-29] MEDS: TAMSULOSIN HYDROCHLORIDE 0.4 MG CAP PO SCH (18:00)
== END 2020-02-29 17:50 | disposition home or self-care (01) | DRG 469 ==
LOC: EDBD 15:42 → ER 15:42 → TELE 15:43 → TELE-CENTR 02-17 07:50
PROVIDERS: ADMIT Nurse Practitioner; ATTEND Internal Medicine
PROC: 0SRS0JZ Replacement of Left Hip Joint, Femoral Surface with Synthetic Substitute, Open Approach (ICD-10-PCS; principal; 2020-02-22 08:30)
DX: S72.012A Unspecified intracapsular fracture of left femur, initial encounter for closed fracture (principal); I50.33 Acute on chronic diastolic (congestive) heart failure; N17.0 Acute kidney failure with tubular necrosis; N39.0 Urinary tract infection, site not specified; I48.20 Chronic atrial fibrillation, unspecified; D68.9 Coagulation defect, unspecified; E44.0 Moderate protein-calorie malnutrition; J96.10 Chronic respiratory failure, unspecified whether with hypoxia or hypercapnia; D68.69 Other thrombophilia; I95.9 Hypotension, unspecified; D64.9 Anemia, unspecified; E86.9 Volume depletion, unspecified; J44.9 Chronic obstructive pulmonary disease, unspecified; E86.1 Hypovolemia; I70.0 Atherosclerosis of aorta; K21.9 Gastro-esophageal reflux disease without esophagitis; K57.30 Diverticulosis of large intestine without perforation or abscess without bleeding; M46.90 Unspecified inflammatory spondylopathy, site unspecified; M70.72 Other bursitis of hip, left hip; Y92.89 Other specified places as the place of occurrence of the external cause; W01.0XXA Fall on same level from slipping, tripping and stumbling without subsequent striking against object, initial encounter; Y99.8 Other external cause status; Y93.01 Activity, walking, marching and hiking; Z79.01 Long term (current) use of anticoagulants; Z80.42 Family history of malignant neoplasm of prostate; Z85.51 Personal history of malignant neoplasm of bladder; Z86.79 Personal history of other diseases of the circulatory system; Z87.891 Personal history of nicotine dependence; Z68.27 Body mass index [BMI] 27.0-27.9, adult
CPT/HCPCS: 36415; 51702; 70450; 71045; 72125; 72170; 72192; 73501; 80048; 80053; 81001; 83735; 84443; 84484; 85025; 85610; 85730; 86850; 86900; 86901; 87086; 87088; 87186; 93005; 94640; 96361; 96365; 96375; 97110; 97116; 97163; 97530; A4565; C1776; G0378; J0690; J0696; J1100; J2250; J2704; J3430; J3490

== ENCOUNTER 2020-03-11 20:20 | Inpatient (IN) | payer OTHER ==
[~2020-03-11] VITALS: Ht 182.9 cm; Wt 95.2 kg
[~2020-03-11 20:20] MED LIST changes: +ALBUAER3 IN; -ASPI-404 PO; +ASPI-543 PO; +AZEL0.1S; -LISI-275 PO; +LISI-648 PO; +TRIA0.5O2 TOP; -UMEC1AER IN
[2020-03-11 22:09] LABS: Basophils # (auto) 0.1 10 ^3/uL (0-0.2); Basophils % (auto) 1.2 % (0.0-2.0); Eosinophils # (auto) 0.4 10 ^3/uL (0-0.8); Eosinophils % (auto) 5.1 % (0.0-7.0); Hematocrit 30.3 % (41.0-53.0); Lymphocytes # (auto) 1.2 10 ^3/uL (0.4-5.4); Lymphocytes % (auto) 16.2 % (10.0-50.0); Mean Corpuscular Hemoglobin 27.8 pg (28.0-32.0); Mean Corpuscular Hgb Conc. 32.9 g/dL (32.0-36.0); Mean Corpuscular Volume 84.4 fL (80.0-100.0); Monocytes # (auto) 0.6 10 ^3/uL (0-1.3); Monocytes % (auto) 7.7 % (0.0-12.0); Neutrophils # (auto) 5.3 10 ^3/uL (1.6-8.6); Neutrophils % (auto) 69.8 % (37.0-80.0); Nucleated Red Blood Cells % 0.1 %; Platelet Count (auto) 236 10^3/uL (140-450); Red Blood Cells 3.59 10^6/uL (4.5-5.90); Red Cell Distribution Width 16.4 % (11.8-14.3); White Blood Cell 7.7 10^3/uL (4.4-10.8)
[2020-03-11 22:26] LABS: BUN/Creatinine Ratio 21.2; Calcium 7.8 mg/dL (8.5-10.1); Potassium 5.4 mmol/L (3.5-5.1)
[2020-03-11 22:31] LABS: Bilirubin, Total 0.5 mg/dL (0.2-1.0); Total Protein 5.7 g/dL (6.4-8.2)
[2020-03-11 23:01] LABS: Partial Thromboplastin Time 35.5 sec (23.64-32.05)
[2020-03-11 23:10] LABS: INR 4.35 (0.9-1.15)
[2020-03-12] VITALS (7 sets, daily range): BP systolic 132–166; BP diastolic 67–79
[2020-03-12] MEDS ORDERED: FUROSEMIDE 20 MG/2 ML VIAL IV ONE (01:00)
[2020-03-12] MEDS ORDERED: IPRATROPIUM BROM 0.5 MG/2.5ML INH SOL NEB PRN (01:15)
[2020-03-12] MEDS ORDERED: HYDROcodone-ACET 10/325MG TAB PO PRN (01:15)
[2020-03-12] MEDS ORDERED: METOPROLOL TARTRATE 1MG/1ML-5ML VIAL IV PRN (01:15)
[2020-03-12] MEDS ORDERED: ONDANSETRON HCL 4 MG/2 ML VIAL IV PRN (01:15)
[2020-03-12] MEDS ORDERED: MORPHINE SULF INJ 2 MG/ML SYRINGE 1ML IV PRN (01:15)
[2020-03-12] MEDS ORDERED: ACETAMINOPHEN 325 MG TAB PO PRN (01:15)
[2020-03-12] MEDS ORDERED: ALBUTEROL SULF 2.5 MG/0.5ML(0.5%) NEB SOLN NEB PRN (01:15)
[2020-03-12] MEDS ORDERED: NITROGLYCERIN 0.4 MG SL TAB SL PRN (01:15)
[2020-03-12] MEDS: SODIUM CHLORIDE 0.9% 1,000 ML IV SCH (02:21)
--- NOTE | 2020-03-12 04:17 | NUR ---
Telemetry admit from ER PAT CUELLAR admitted to Telemetry unit after SBAR received. Patient oriented to TRENT MOREL, RN primary RN, unit, room, bed, and unit policies regarding patient care and visiting hours. Patient now on continuous telemetry monitoring, tele box #[id number] and telemetry reading on arrival to unit is AFIB. Patient placed on bedside oxygen 2L/NC, weighed by bedscale and encouraged to call if they need something. All questions and concerns addressed, patient verbalized understanding. Note: PATIENT IS A/O X3, CAME IN WITH STUBBS CATHETER WITH A LEG BAG. BLE EDEMA, SKIN WITH SCATTERED BRUISING ON ARMS, DENIES ANY PAIN, ABLE TO [place] FEW STES FROM GURNEY TO BED.
--- NOTE | 2020-03-12 06:49 | NUR ---
Respiratory note: HR 64, RR 16, SPO2 99% ON 2L NC, BS CLEAR AND DIMINISHED. PRN MED NEB TX NOT INDICATED. NO SIGNS OR SYMPTOMS OF RESPIRATORY DISTRESS NOTED AT THIS TIME. PT INFORMED TO HIT CALL BUTTON IF FEELING SOB OR WHEEZING.
--- NOTE | 2020-03-12 07:35 | NUR ---
Opening Shift Note Assumed care of patient, awake and alert. No S/S of distress/SOB or pain. Instructed on POC and to call for assist PRN, will continue to monitor for changes Q1hr and PRN.
[2020-03-12 07:54] LABS: Basophils # (auto) 0 10 ^3/uL (0-0.2); Basophils % (auto) 0.6 % (0.0-2.0); Eosinophils # (auto) 0.3 10 ^3/uL (0-0.8); Eosinophils % (auto) 4.9 % (0.0-7.0); Hematocrit 32.4 % (41.0-53.0); Hemoglobin 10.6 g/dL (13.5-17.5); Lymphocytes # (auto) 1.2 10 ^3/uL (0.4-5.4); Lymphocytes % (auto) 19.2 % (10.0-50.0); Mean Corpuscular Hemoglobin 27.5 pg (28.0-32.0); Mean Corpuscular Hgb Conc. 32.6 g/dL (32.0-36.0); Mean Corpuscular Volume 84.3 fL (80.0-100.0); Monocytes # (auto) 0.5 10 ^3/uL (0-1.3); Monocytes % (auto) 7.3 % (0.0-12.0); Neutrophils # (auto) 4.2 10 ^3/uL (1.6-8.6); Nucleated Red Blood Cells % 0.1 %; Platelet Count (auto) 248 10^3/uL (140-450); Red Blood Cells 3.85 10^6/uL (4.5-5.90); Red Cell Distribution Width 16.1 % (11.8-14.3); White Blood Cell 6.2 10^3/uL (4.4-10.8)
[2020-03-12 08:12] LABS: Potassium 4.1 mmol/L (3.5-5.1)
[2020-03-12 08:23] LABS: BUN/Creatinine Ratio 20.4; Calcium 8.7 mg/dL (8.5-10.1)
--- NOTE | 2020-03-12 09:43 | NUR ---
Patient is NPO for CT angio. Patient informed.
[2020-03-12] MEDS ORDERED: PATIENTS OWN MEDICATION (Simvastatin 40 MG) PO SCH (10:00)
[2020-03-12] MEDS: TRIAMCINOLONE ACETONIDE TOP SCH ×2 (10:00→21:57)
[2020-03-12] MEDS ORDERED: ENOXAPARIN SOD 100 MG/1 ML SYRINGE SC SCH (10:00)
[2020-03-12] MEDS ORDERED: IOHEXOL 350 MG/ML 100ML IJ ONE (10:26)
[2020-03-12] MEDS: FUROSEMIDE 40 MG/4 ML VIAL IV SCH (10:42)
[2020-03-12] MEDS: ASPirin 81 mg TAB PO SCH (13:44)
[2020-03-12] MEDS: DOCUSATE SOD 100 MG CAP PO SCH (13:44)
[2020-03-12] MEDS: CLOPIDOGREL BISULFATE 75 MG TAB PO SCH (13:44)
[2020-03-12] MEDS: PANTOPRAZOLE 40 MG TAB PO SCH (13:45)
[2020-03-12] MEDS: LISINOPRIL 10 MG TAB PO SCH (13:45)
[2020-03-12] MEDS: CARVEDILOL 3.125 MG TAB PO SCH ×2 (13:46→21:59)
[2020-03-12] MEDS ORDERED: hydrALAZINE HCL 20 MG/ML VL IV PRN (14:15)
[2020-03-12 14:25] LABS: INR 3.87 (0.9-1.15); Partial Thromboplastin Time 46.7 sec (23.64-32.05)
--- NOTE | 2020-03-12 14:30 | NUR ---
IV restart attempted X 2 without success. ultrasound applications specialist, Shauna, to start IV.
--- NOTE | 2020-03-12 14:54 | NUR ---
IV insertion IV access obtained, via clean sterile technique by inserting 22 gauge catheter at left AC after 1 attempt. IV secured properly. No trauma to site. Patient tolerated procedure well. IV started by Shauna Garcia RN.
--- NOTE | 2020-03-12 15:00 | NUR ---
Lea Frost NP, in to see patient for cardiology consult.
[2020-03-12 16:10] LABS: Basophils # (auto) 0 10 ^3/uL (0-0.2); Basophils % (auto) 0.7 % (0.0-2.0); Eosinophils # (auto) 0.3 10 ^3/uL (0-0.8); Eosinophils % (auto) 4.4 % (0.0-7.0); Hematocrit 30.9 % (41.0-53.0); Hemoglobin 10.1 g/dL (13.5-17.5); Lymphocytes % (auto) 17.8 % (10.0-50.0); Mean Corpuscular Hemoglobin 27.4 pg (28.0-32.0); Mean Corpuscular Hgb Conc. 32.5 g/dL (32.0-36.0); Mean Corpuscular Volume 84.3 fL (80.0-100.0); Monocytes # (auto) 0.5 10 ^3/uL (0-1.3); Monocytes % (auto) 8.2 % (0.0-12.0); Neutrophils % (auto) 68.9 % (37.0-80.0); Platelet Count (auto) 221 10^3/uL (140-450); Red Blood Cells 3.66 10^6/uL (4.5-5.90); Red Cell Distribution Width 16.1 % (11.8-14.3); White Blood Cell 5.8 10^3/uL (4.4-10.8)
[2020-03-12] MEDS: HEPARIN DRIP/D5W 100UNITS/ML 250 ML IV SCH (16:15)
[2020-03-12 16:18] LABS: INR 3.74 (0.9-1.15); Partial Thromboplastin Time 46.3 sec (23.64-32.05)
[2020-03-12] MEDS: TAMSULOSIN HYDROCHLORIDE 0.4 MG CAP PO SCH (17:41)
--- NOTE | 2020-03-12 18:39 | NUR ---
RT NOTE PT WAS SEEN BY RT FOR PRN HHN TX ASSESSMENT. HR 59, RR 16, BS CLEAR/DIM, POX 99 ON ROOM AIR. NO SOB OR DISTRESS NOTED. NO PRN TX INDICATED AT THIS TIME. CONT ORDERED Addendum: 03/12/20 at 1937 by Margarita Mora RT Amended: Links added.
[2020-03-12] MEDS: ATORVASTATIN 20 MG TAB PO SCH (21:57)
[2020-03-12 22:51] LABS: INR 3.5 (0.9-1.15); Partial Thromboplastin Time 67.7 sec (23.64-32.05)
--- NOTE | 2020-03-12 22:55 | NUR ---
HEPARIN DRIP LATEST APTT IS 67.7. NO CHANGE ON HEPARIN DRIP PER PROTOCOL.
[2020-03-13] VITALS (7 sets, daily range): BP systolic 132–163; BP diastolic 54–77
[2020-03-13] MEDS: SODIUM CHLORIDE 0.9% 1,000 ML IV SCH (01:12)
[2020-03-13 05:09] LABS: Basophils # (auto) 0.1 10 ^3/uL (0-0.2); Basophils % (auto) 0.8 % (0.0-2.0); Eosinophils # (auto) 0.3 10 ^3/uL (0-0.8); Eosinophils % (auto) 4.7 % (0.0-7.0); Hematocrit 32.5 % (41.0-53.0); Hemoglobin 10.3 g/dL (13.5-17.5); Lymphocytes # (auto) 1.3 10 ^3/uL (0.4-5.4); Mean Corpuscular Hemoglobin 27.2 pg (28.0-32.0); Mean Corpuscular Hgb Conc. 31.6 g/dL (32.0-36.0); Monocytes # (auto) 0.5 10 ^3/uL (0-1.3); Monocytes % (auto) 7.8 % (0.0-12.0); Neutrophils # (auto) 4.4 10 ^3/uL (1.6-8.6); Neutrophils % (auto) 66.7 % (37.0-80.0); Platelet Count (auto) 222 10^3/uL (140-450); Red Blood Cells 3.78 10^6/uL (4.5-5.90); Red Cell Distribution Width 16.2 % (11.8-14.3); White Blood Cell 6.6 10^3/uL (4.4-10.8)
[2020-03-13 05:25] LABS: BUN/Creatinine Ratio 22.1; Calcium 8.3 mg/dL (8.5-10.1); Potassium 3.9 mmol/L (3.5-5.1)
[2020-03-13 05:59] LABS: INR 3.15 (0.9-1.15)
[2020-03-13 06:08] LABS: Partial Thromboplastin Time 85.4 sec (23.64-32.05)
[2020-03-13] MEDS: HEPARIN DRIP/D5W 100UNITS/ML 250 ML IV SCH (06:15)
--- NOTE | 2020-03-13 06:16 | NUR ---
HEPARIN DRIP CHANGE LATEST APTT IS 85.4 SEC, ADJUSTED HEPARIN DRIP RATE TO 8ML/HR PER PROTOCOL.
--- NOTE | 2020-03-13 07:30 | NUR ---
RECEIVED REPORT FROM NIGHT NURSE. PATIENT RESTING IN BED, NO DISTRESS NOTED. WILL CONTINUE TO MONITOR.
[2020-03-13] MEDS ORDERED: LIDOCAINE 2%HCL (LOCAL ANESTH.) INJ 20ML MDV ONE ×2 (07:34→14:54)
[2020-03-13] MEDS ORDERED: IODIXANOL 320MG/ML 100ML BTL IV ONE (07:35)
--- NOTE | 2020-03-13 07:36 | NUR ---
PATIENT TAKEN DOWN TO STRUCTURES TECHNICIAN, PROCEDURE TIME CANCELLED, PATIENT BROUGHT BACK UP FROM STRUCTURES TECHNICIAN.
--- NOTE | 2020-03-13 09:00 | NUR ---
IV TO LEFT AC SHOWING REDNESS AND SWELLING. IV CURRENTLY RUNNING HEPARIN AT 8ML/HR. HEPARIN STOPPED, IV REMOVED, PRESSURE DRESSING APPLIED. ATTEMPTED TO START IV, PATIENT STATED THAT HE DOES NOT WANT TO BE POKED AGAIN UNLESS WE WILL GET THE IV. DOCTOR NOTIFIED. ORDER FOR MIDLINE OBTAINED.
[2020-03-13] MEDS: FUROSEMIDE 40 MG/4 ML VIAL IV SCH (10:00)
[2020-03-13] MEDS: TRIAMCINOLONE ACETONIDE TOP SCH ×2 (10:00→21:10)
--- NOTE | 2020-03-13 10:00 | NUR ---
Respiratory note: PT ASSESSED FOR PRN MEDNEB. SPO2 97% ON 2L NC HR 58 RR 14 B/S CLEAR-DIMINISHED. MEDNEB NOT INDICATED AT THIS TIME. PT AWARE TO HAVE RT PAGED IF THEY BECOME SOB.
--- NOTE | 2020-03-13 10:05 | NUR ---
DOCTOR RENTERIA AT BEDSIDE.
[2020-03-13] MEDS: PANTOPRAZOLE 40 MG TAB PO SCH (10:23)
[2020-03-13] MEDS: CARVEDILOL 3.125 MG TAB PO SCH (10:23)
[2020-03-13] MEDS: DOCUSATE SOD 100 MG CAP PO SCH (10:23)
[2020-03-13] MEDS: CLOPIDOGREL BISULFATE 75 MG TAB PO SCH (10:23)
[2020-03-13] MEDS: ASPirin 81 mg TAB PO SCH (10:23)
[2020-03-13] MEDS: LISINOPRIL 10 MG TAB PO SCH (10:23)
[2020-03-13] MEDS ORDERED: HEPARIN DRIP/D5W 100UNITS/ML 250 ML IV SCH (11:45)
--- NOTE | 2020-03-13 12:00 | NUR ---
MIDLINE NURSE AT BEDSIDE.
--- NOTE | 2020-03-13 12:00 | NUR ---
Midline Placement: Patient educated on need for midline placement. All risks and benefits explained and all questions and concerns addresses prior to procedure. 18g/10cm midline inserted via right cephalic vein using Ultrasound. Sterile technique utilized. Blood return obtained from lumen and flushed easily with NS using proper technique. Midline secured with saline lock; biodisc and occlusive dressing applied. Primary RN notified. Midline lot #[id number]
[2020-03-13 13:37] LABS: INR 2.54 (0.9-1.15); Partial Thromboplastin Time 39.5 sec (23.64-32.05)
--- NOTE | 2020-03-13 14:00 | NUR ---
PATIENT TAKEN DOWN TO WOOD TANK BUILDER.
[2020-03-13] MEDS ORDERED: IOHEXOL 350 MG/ML 100ML IJ ONE (14:53)
[2020-03-13] MEDS ORDERED: MIDAZOLAM HCL 1MG/1ML-2 ML VIAL ONE (15:02)
[2020-03-13] MEDS ORDERED: fentaNYL CITRATE 100 MCG/2 ML VL ONE (15:02)
[2020-03-13] MEDS ORDERED: NITROGLYCERIN 0.4MG/DOSE SPRAY 4.9GM ONE (15:17)
--- NOTE | 2020-03-13 16:28 | NUR ---
PATIENT BACK FROM BACON SLICER. PATIENT TO REMAIN FLAT IN BED UNTIL 1730. VITALS STABLE, DRESSING TO RIGHT GROIN, C/D/I. WILL CONTINUE TO MONITOR.
--- NOTE | 2020-03-13 17:35 | NUR ---
PATIENT SITTING UP IN BED. DRESSING TO RIGHT GROIN C/D/I. PATIENT DENIES PAIN. REQUESTING JUICE.
[2020-03-13] MEDS: TAMSULOSIN HYDROCHLORIDE 0.4 MG CAP PO SCH (18:05)
--- NOTE | 2020-03-13 18:48 | NUR ---
Respiratory note: PT RECIEVED ON RA SPO2 89% PT PLACED BACK ON NC2L. PT AWAKE AND ALERT. NO RESP DISTRESS NOTED. PRN TX NOT INDICATED. SPO2 96%, HR 57, RR 18. BS CLR/DIM T/O. PT AWARE TO CALL FOR TX IF SOB/WHEEZING.
--- NOTE | 2020-03-13 19:56 | NUR ---
Opening Shift Note Assumed care of patient, awake and alert. No S/S of distress/SOB or pain. Right groin with dressing clean/dry/intact, no signs of bleeding, denies numbness, pulses palpable. Instructed on POC and to call for assist PRN, will continue to monitor for changes Q1hr and PRN.
[2020-03-13] MEDS: ATORVASTATIN 20 MG TAB PO SCH (21:10)
[2020-03-14] MEDS: SODIUM CHLORIDE 0.9% 1,000 ML IV SCH (01:12)
--- NOTE | 2020-03-14 04:07 | NUR ---
PATIENT AMBULATED WELL WITH WALKER, HAD A BM, DISCONTINUED STUBBS CATHETER AT 0400. DUE TO VOID UNTIL 1000. URINAL PROVIDED AT BED SIDE.
[2020-03-14 05:00] VITALS: BP 138/61
--- NOTE | 2020-03-14 07:25 | NUR ---
Opening Shift Note Assumed care of patient, awake and alert X4. No S/S of distress/SOB or pain reported at this time, currently on 2l via NC. Instructed on POC and to call for assist PRN, call light within reach, bed alarm on, noted clean dry and intact dressing to left hip from a previous surg, will continue to monitor for changes Q1hr and PRN.
--- NOTE | 2020-03-14 07:58 | NUR ---
PRN [place] TX NOT INDICATED AT THIS TIME. PT DENIES SOB OR ANY OTHER RESPIRATORY DISTRESS. PT ON 2L/MIN VIA NC, 94% O2 SATS, HR 67 BPM, RR19 BPM, BS ARE DIMINISHED TO AUSCULTATION. PT INSTRUCTED TO CALL IF [place] TX IS INDICATED. PT VERBALIZED UNDERSTANDING. WILL CONTINUE TO MONITOR PT.
[2020-03-14 08:00] VITALS: BP 96/56
[2020-03-14 09:00] VITALS: BP 100/40
[2020-03-14] MEDS: TRIAMCINOLONE ACETONIDE TOP SCH (10:00)
--- NOTE | 2020-03-14 10:35 | NUR ---
ACTIVITY PT ASSISTED TO BATHROOM, USING FWW, GAIT STABLE USING FWW, NO DISTRESS NOTED, ASSISTED BACK, BED ALRM ACTIVATED AND CALL LIGHT WITHIN REACH, CONT CARE
[2020-03-14] MEDS: DOCUSATE SOD 100 MG CAP PO SCH (11:22)
[2020-03-14] MEDS: CLOPIDOGREL BISULFATE 75 MG TAB PO SCH (11:23)
[2020-03-14] MEDS: ASPirin 81 mg TAB PO SCH (11:23)
[2020-03-14] MEDS: LISINOPRIL 10 MG TAB PO SCH (11:23)
[2020-03-14] MEDS: PANTOPRAZOLE 40 MG TAB PO SCH (11:23)
[2020-03-14] MEDS: FUROSEMIDE 40 MG/4 ML VIAL IV SCH (11:23)
[2020-03-14 13:00] VITALS: BP 144/49
[2020-03-14 15:52] VITALS: BP 96/56
--- NOTE | 2020-03-14 16:09 | NUR ---
Assessment Patient is an 84-year-old male who is alert and oriented. Assessment was completed by patient Sia ). Per Sia prior to admission patient lived home with her and their son and function with assistance. Per Sia she helps patient with his ADL's. Per Sia patient will return home to his prior living arrangements post discharge and she will transport patient home. Per Sia patient has a walker and home oxygen for home use. Per Sia on his last admission patient health plan authorized a hospital bed for 30 days. Per Sia she would like to extend it for another 30 days. Advised Sia to follow up with patient primary doctor to determine if he will need hospital bed for more than 30 days. Advised patient there is a social service consult for home health for medication management. Per Sia she does not want home health service for patient. Per Sia patient has good family support. Informed Sia she has the right to participate in all discharge planning. Sia verbalized understanding and agreed to discharge plan. Addendum: 03/14/20 at 1619 by VIKAS MEIER Amended: Links added.
[2020-03-14 17:00] VITALS: BP 147/64
--- NOTE | 2020-03-14 18:00 | NUR ---
DISCHARGE Discharge instructions given as ordered. Encourage to follow up with PMD as instructed. Appointment made to follow up with Dr Parmjit Chavez 03/20/20 @ 12:15, phone contact and address provided. All questions and concerns addressed. Patient verbalized understanding. Medication reconciliation form completed and copy given to patient. Midline removed with catheter intact, pressure dressing applied. Telemetry unit returned to ICU. Patient taken to vehicle via wheelchair with all personal belongings, accompanied by staff, family member met patient at [facility] where his own home o2 was brought fos his ride home. No distress noted at time of departure.
== END 2020-03-14 17:55 | disposition home health service (06) | DRG 280 ==
LOC: EDBD 20:20 → ER 20:23 → TELE 20:24 → TELE-CENTR 03-12 03:25
PROVIDERS: ADMIT Hospitalist; ATTEND Family Medicine
PROC: B2111ZZ Fluoroscopy of Multiple Coronary Arteries using Low Osmolar Contrast (ICD-10-PCS; principal; 2020-03-13)
PROC: B2151ZZ Fluoroscopy of Left Heart using Low Osmolar Contrast (ICD-10-PCS; 2020-03-13)
DX: I21.4 Non-ST elevation (NSTEMI) myocardial infarction (principal); I50.33 Acute on chronic diastolic (congestive) heart failure; D68.69 Other thrombophilia; R07.9 Chest pain, unspecified; J44.9 Chronic obstructive pulmonary disease, unspecified; E87.5 Hyperkalemia; I48.91 Unspecified atrial fibrillation; K21.9 Gastro-esophageal reflux disease without esophagitis; I11.0 Hypertensive heart disease with heart failure; N40.0 Benign prostatic hyperplasia without lower urinary tract symptoms; E78.5 Hyperlipidemia, unspecified; I71.4 Abdominal aortic aneurysm, without rupture; F17.210 Nicotine dependence, cigarettes, uncomplicated; Z90.89 Acquired absence of other organs; Z80.42 Family history of malignant neoplasm of prostate; Z79.899 Other long term (current) drug therapy; Z79.01 Long term (current) use of anticoagulants; Z99.81 Dependence on supplemental oxygen
CPT/HCPCS: 36415; 71045; 71275; 80048; 80053; 80061; 83735; 83880; 84443; 84484; 85025; 85379; 85610; 85730; 87081; 93005; 93970; 99152; G0378; J2250; J2405; Q9967

== ENCOUNTER → 2020-03-23 | Outpatient (CLI) | payer OTHER | END | disposition home or self-care (01) | LOC: LAB 15:00 | PROVIDERS: ATTEND Urology | DX: R31.9 Hematuria, unspecified (principal) ==

== ENCOUNTER → 2020-05-19 | Outpatient (CLI) | payer OTHER | END | disposition home or self-care (01) | LOC: LAB 13:39 | PROVIDERS: ATTEND Urology | DX: R31.9 Hematuria, unspecified (principal) ==

== ENCOUNTER → 2020-06-23 | Outpatient (CLI) | payer OTHER ==
[~2020-06-23] VITALS: Ht 182.9 cm; Wt 85.7 kg
[2020-06-23 14:19] LABS: Basophils # (auto) 0.1 10 ^3/uL (0-0.2); Eosinophils # (auto) 0.2 10 ^3/uL (0-0.8); Hemoglobin 12.6 g/dL (13.5-17.5); Lymphocytes # (auto) 1.9 10 ^3/uL (0.4-5.4); Monocytes # (auto) 0.6 10 ^3/uL (0-1.3)
[2020-06-23 14:21] LABS: Basophils % (auto) 0.7 % (0.0-2.0); Eosinophils % (auto) 2.1 % (0.0-7.0); Hematocrit 39.1 % (41.0-53.0); Lymphocytes % (auto) 22.4 % (10.0-50.0); Mean Corpuscular Hemoglobin 25.9 pg (28.0-32.0); Mean Corpuscular Hgb Conc. 32.1 g/dL (32.0-36.0); Mean Corpuscular Volume 80.5 fL (80.0-100.0); Monocytes % (auto) 6.8 % (0.0-12.0); Neutrophils # (auto) 5.9 10 ^3/uL (1.6-8.6); Platelet Count (auto) 250 10^3/uL (140-450); Red Blood Cells 4.85 10^6/uL (4.5-5.90); Red Cell Distribution Width 17.4 % (11.8-14.3); White Blood Cell 8.6 10^3/uL (4.4-10.8)
[2020-06-23 14:34] LABS: INR 2.36 (0.9-1.15); Partial Thromboplastin Time 37.9 sec (23.0-31.2)
[2020-06-23 14:49] LABS: Albumin 3.3 g/dL (3.4-5.0); BUN/Creatinine Ratio 27.7; Calcium 9.7 mg/dL (8.5-10.1); Potassium 4.8 mmol/L (3.5-5.1)
[2020-06-23 14:52] LABS: Bilirubin, Total 0.3 mg/dL (0.2-1.0); Total Protein 7.5 g/dL (6.4-8.2)
[2020-06-26 11:10] LABS: Urine Bacteria NONE SEEN /hpf (None Seen); Urine Blood Negative /uL (Negative); Urine Hyaline Cast FEW /lpf (0 - 2); Urine Mucus FEW (None Seen); Urine Specific Gravity 1.015 (1.001-1.035); Urine WBC 103 /hpf (0 - 3); Urine WBC Clumps PRESENT /hpf (None Seen)
== END | disposition home or self-care (01) ==
LOC: SUR 14:14 → EDSTATUS 06-29 08:00
PROVIDERS: ATTEND Urology
DX: R31.9 Hematuria, unspecified (principal); I50.9 Heart failure, unspecified; J43.9 Emphysema, unspecified; Z20.828 Contact with and (suspected) exposure to other viral communicable diseases; Z98.890 Other specified postprocedural states; Z79.899 Other long term (current) drug therapy; Z87.891 Personal history of nicotine dependence
CPT/HCPCS: 36415; 80053; 81001; 85025; 85610; 85730; U0003

== ENCOUNTER 2020-08-24 13:06 | Emergency (ER) | payer OTHER ==
[~2020-08-24] VITALS: Ht 182.9 cm; Wt 89.8 kg
[2020-08-24 13:39] VITALS: BP 96/52
== END 2020-08-24 14:42 | disposition left against medical advice (07) ==
LOC: ER 13:06
DX: R53.1 Weakness (principal); Z53.21 Procedure and treatment not carried out due to patient leaving prior to being seen by health care provider

== ENCOUNTER → 2020-08-24 | Outpatient (CLI) | payer OTHER | END | disposition home or self-care (01) | LOC: LAB 12:43 | PROVIDERS: ATTEND Family Medicine | DX: U07.1 COVID-19 (principal) | CPT/HCPCS: C9803; U0003 ==

== ENCOUNTER 2020-09-28 16:15 | Inpatient (IN) | payer OTHER ==
[~2020-09-28] VITALS: Ht 182.9 cm; Wt 88.2 kg
[2020-09-28] MEDS ORDERED: FAMOTIDINE (10MG/ML) 2ML VL IV ONE (18:00)
[2020-09-28] MEDS ORDERED: DOXYCYCLINE 100MG/250ML 250 ML IV ONE (18:00)
[2020-09-28] MEDS ORDERED: cefTRIAXone SOD 1,000 MG VL IM ONE (18:00)
[2020-09-28] MEDS ORDERED: DexAMETHasone SOD PHOS 10MG/1ML VIAL INJ IV ONE (18:15)
[2020-09-28] MEDS ORDERED: cefTRIAXone 1GM/50ML D5W 50 ML IV ONE ×2 (18:20→18:30)
[2020-09-28 18:54] LABS: Basophils # (auto) 0 10 ^3/uL (0-0.2); Eosinophils # (auto) 0 10 ^3/uL (0-0.8); Hemoglobin 11.2 g/dL (13.5-17.5); Lymphocytes # (auto) 0.9 10 ^3/uL (0.4-5.4); Monocytes # (auto) 0.3 10 ^3/uL (0-1.3); White Blood Cell 8.4 10^3/uL (4.4-10.8)
[2020-09-28 18:56] LABS: Basophils % (auto) 0.5 % (0.0-2.0); Lymphocytes % (auto) 10.6 % (10.0-50.0); Mean Corpuscular Hemoglobin 27.9 pg (28.0-32.0); Mean Corpuscular Hgb Conc. 32.9 g/dL (32.0-36.0); Mean Corpuscular Volume 84.7 fL (80.0-100.0); Monocytes % (auto) 3.7 % (0.0-12.0); Neutrophils # (auto) 7.2 10 ^3/uL (1.6-8.6); Neutrophils % (auto) 85.2 % (37.0-80.0); Platelet Count (auto) 30 10^3/uL (140-450); Red Blood Cells 4.01 10^6/uL (4.5-5.90); Red Cell Distribution Width 18.1 % (11.8-14.3)
[2020-09-28 19:06] LABS: Potassium 4.3 mmol/L (3.5-5.1)
[2020-09-28 19:17] LABS: Albumin 2.4 g/dL (3.4-5.0); BUN/Creatinine Ratio 20.5; Bilirubin, Total 0.6 mg/dL (0.2-1.0); CRP High Sensitivity 3.7 mg/dL (< 0.3); Calcium 7.9 mg/dL (8.5-10.1)
[2020-09-28 19:36] LABS: INR 1.29 (0.9-1.15); Partial Thromboplastin Time 27.9 sec (23.0-31.2)
[2020-09-28] MEDS ORDERED: POTASSIUM CHL 20 Meq TABLET PO ONE (20:15)
[2020-09-28] MEDS ORDERED: POTASSIUM EFFERVESENT TAB 25 MEQ PO ONE (20:30)
[2020-09-28] MEDS ORDERED: FUROSEMIDE 40 MG/4 ML VIAL IV ONE (20:30)
[2020-09-28] MEDS ORDERED: IOHEXOL 350 MG/ML 100ML IJ ONE (20:46)
[2020-09-28] MEDS ORDERED: DOCUSATE CALCIUM 240 MG CAP PO PRN (22:15)
[2020-09-28] MEDS ORDERED: MORPHINE SULF INJ 2 MG/ML SYRINGE 1ML IV PRN ×2 (22:15)
[2020-09-28] MEDS ORDERED: hydrALAZINE HCL 20 MG/ML VL IV PRN (22:15)
[2020-09-28] MEDS ORDERED: VANCOMYCIN PER PHARMACY 0 MG IV SCH (22:15)
[2020-09-28] MEDS ORDERED: NITROGLYCERIN 0.4 MG SL TAB SL PRN (22:15)
[2020-09-28] MEDS ORDERED: LORazepam 0.5 MG TAB PO PRN (22:15)
[2020-09-28] MEDS ORDERED: VANCOMYCIN 1GM/250ML 250 ML IV ONE (22:45)
[2020-09-29] MEDS: PIPERACILLIN-TAZOB 3.375GM 100 ML IV SCH ×4 (06:42→17:19)
[2020-09-29 06:55] LABS: Basophils # (auto) 0 10 ^3/uL (0-0.2); Eosinophils # (auto) 0 10 ^3/uL (0-0.8); Hemoglobin 11.9 g/dL (13.5-17.5); Monocytes # (auto) 0.3 10 ^3/uL (0-1.3); Platelet Count (auto) 32 10^3/uL (140-450)
[2020-09-29 06:58] LABS: Basophils % (auto) 0.2 % (0.0-2.0); Hematocrit 35.8 % (41.0-53.0); Lymphocytes % (auto) 11.8 % (10.0-50.0); Mean Corpuscular Hemoglobin 28.1 pg (28.0-32.0); Mean Corpuscular Hgb Conc. 33.3 g/dL (32.0-36.0); Mean Corpuscular Volume 84.4 fL (80.0-100.0); Monocytes % (auto) 4.2 % (0.0-12.0); Neutrophils # (auto) 6.8 10 ^3/uL (1.6-8.6); Neutrophils % (auto) 83.8 % (37.0-80.0); Nucleated Red Blood Cells % 0.1 %; Red Blood Cells 4.24 10^6/uL (4.5-5.90); Red Cell Distribution Width 18.2 % (11.8-14.3); White Blood Cell 8.1 10^3/uL (4.4-10.8)
[2020-09-29 07:16] LABS: Albumin 2.5 g/dL (3.4-5.0); Calcium 8.2 mg/dL (8.5-10.1); Potassium 4.5 mmol/L (3.5-5.1)
[2020-09-29 07:19] LABS: BUN/Creatinine Ratio 24.3; Bilirubin, Total 0.6 mg/dL (0.2-1.0); Total Protein 6.4 g/dL (6.4-8.2)
[2020-09-29] MEDS: BUDESONIDE (INHALATION) 180 MCG IH IN SCH ×2 (07:43→22:00)
[2020-09-29] MEDS ORDERED: FUROSEMIDE 40 MG TAB PO SCH (10:00)
[2020-09-29] MEDS: ZINC SULFATE 220mg CAP or TAB PO SCH (10:51)
[2020-09-29] MEDS: ASCORBIC ACID 1,000 MG TAB PO SCH (10:52)
[2020-09-29] MEDS: PANTOPRAZOLE 40 MG TAB PO SCH (10:52)
[2020-09-29] MEDS: CARVEDILOL 3.125 MG TAB PO SCH ×2 (10:52→22:36)
[2020-09-29] MEDS: LISINOPRIL 10 MG TAB PO SCH (10:53)
[2020-09-29] MEDS: CHOLECALCIFEROL (VITD3) 2,000 UNIT CAP/TAB PO SCH (10:53)
[2020-09-29] MEDS ORDERED: HYDROcodone-ACET 7.5/325MG TAB PO PRN (12:00)
[2020-09-29] MEDS ORDERED: DEXTROSE (50%) 50ML SYRG IV ONE (12:30)
[2020-09-29] MEDS ORDERED: REMDESIVIR PER PHARMACY 0 ML IV SCH (12:30)
[2020-09-29] MEDS ORDERED: AZITHROMYCIN 500MG/ 250ML 250 ML IV ONE (12:30)
[2020-09-29] MEDS ORDERED: REMDESIVIR 200 MG in NS 210ml LOADING DOSE ADULT IV ONE (15:00)
[2020-09-29] MEDS: ERGOCALCIFEROL 50,000 UNIT(1.25MG) CAP PO SCH (15:43)
[2020-09-29] MEDS ORDERED: ACCU-CHEK COMFORT CURVE STRIP VI ONE (17:00)
[2020-09-29] MEDS ORDERED: InsuLIN REG 1unit/0.01ml Soln (100units/ml) SC ONE (17:00)
[2020-09-29] MEDS: ENOXAPARIN SOD 100 MG/1 ML SYRINGE SC SCH (22:36)
[2020-09-30] MEDS: PIPERACILLIN-TAZOB 3.375GM 100 ML IV SCH ×4 (00:31→19:03)
[2020-09-30 01:44] VITALS: BP 122/58
[2020-09-30] MEDS ORDERED: VANCOMYCIN 1GM/250ML 250 ML IV SCH (05:00)
[2020-09-30] MEDS: BUDESONIDE (INHALATION) 180 MCG IH IN SCH ×2 (07:20→18:00)
[2020-09-30] MEDS: ALBUTEROL SULF HFA 90MCG INH 200DOSE IN PRN ×2 (07:20→18:00)
[2020-09-30 07:43] LABS: Basophils # (auto) 0 10 ^3/uL (0-0.2); Hemoglobin 11.6 g/dL (13.5-17.5); Lymphocytes # (auto) 1.8 10 ^3/uL (0.4-5.4); Mean Corpuscular Hemoglobin 27.7 pg (28.0-32.0); Monocytes # (auto) 0.5 10 ^3/uL (0-1.3)
[2020-09-30 07:49] LABS: Basophils % (auto) 0.5 % (0.0-2.0); Eosinophils # (auto) 0.2 10 ^3/uL (0-0.8); Eosinophils % (auto) 1.7 % (0.0-7.0); Hematocrit 35.4 % (41.0-53.0); Mean Corpuscular Hgb Conc. 32.9 g/dL (32.0-36.0); Mean Corpuscular Volume 84.3 fL (80.0-100.0); Monocytes % (auto) 5.8 % (0.0-12.0); Neutrophils # (auto) 6.6 10 ^3/uL (1.6-8.6); Platelet Count (auto) 32 10^3/uL (140-450); Red Cell Distribution Width 17.5 % (11.8-14.3); White Blood Cell 9.2 10^3/uL (4.4-10.8)
[2020-09-30 08:00] VITALS: BP 119/64
[2020-09-30 08:42] LABS: Albumin 2.1 g/dL (3.4-5.0); Calcium 7.7 mg/dL (8.5-10.1)
[2020-09-30 08:47] LABS: BUN/Creatinine Ratio 22.3; Bilirubin, Total 0.6 mg/dL (0.2-1.0); Total Protein 5.7 g/dL (6.4-8.2)
[2020-09-30] MEDS ORDERED: FUROSEMIDE 20 MG/2 ML VIAL IV SCH (10:00)
[2020-09-30] MEDS: LISINOPRIL 10 MG TAB PO SCH (10:57)
[2020-09-30] MEDS: ZINC SULFATE 220mg CAP or TAB PO SCH (10:57)
[2020-09-30] MEDS: ASCORBIC ACID 1,000 MG TAB PO SCH (10:57)
[2020-09-30] MEDS: AZITHROMYCIN 500MG/ 250ML 250 ML IV SCH (10:57)
[2020-09-30] MEDS: PANTOPRAZOLE 40 MG TAB PO SCH (10:57)
[2020-09-30] MEDS: CHOLECALCIFEROL (VITD3) 2,000 UNIT CAP/TAB PO SCH (10:58)
[2020-09-30] MEDS: CARVEDILOL 3.125 MG TAB PO SCH ×2 (10:58→20:50)
[2020-09-30] MEDS: ENOXAPARIN SOD 100 MG/1 ML SYRINGE SC SCH ×2 (10:59→20:50)
[2020-09-30 16:00] VITALS: BP 118/64
[2020-09-30] MEDS: REMDESIVIR 100mg 100 MG in SODIUM CHL 0.9% 230 ML IV SCH (16:25)
[2020-09-30 23:54] VITALS: BP 109/62
[2020-10-01] MEDS: PIPERACILLIN-TAZOB 3.375GM 100 ML IV SCH ×5 (00:22→23:52)
[2020-10-01 08:00] VITALS: BP 117/52
[2020-10-01 08:01] LABS: Basophils # (auto) 0.1 10 ^3/uL (0-0.2); Eosinophils # (auto) 0.1 10 ^3/uL (0-0.8); Lymphocytes # (auto) 1.7 10 ^3/uL (0.4-5.4); Monocytes # (auto) 0.5 10 ^3/uL (0-1.3); Monocytes % (auto) 6.4 % (0.0-12.0); Platelet Count (auto) 22 10^3/uL (140-450); Red Cell Distribution Width 17.8 % (11.8-14.3)
[2020-10-01 08:03] LABS: Basophils % (auto) 0.9 % (0.0-2.0); Eosinophils % (auto) 1.6 % (0.0-7.0); Hematocrit 34.9 % (41.0-53.0); Hemoglobin 11.5 g/dL (13.5-17.5); Lymphocytes % (auto) 21.3 % (10.0-50.0); Mean Corpuscular Hemoglobin 27.8 pg (28.0-32.0); Mean Corpuscular Hgb Conc. 32.9 g/dL (32.0-36.0); Mean Corpuscular Volume 84.6 fL (80.0-100.0); Neutrophils # (auto) 5.7 10 ^3/uL (1.6-8.6); Neutrophils % (auto) 69.8 % (37.0-80.0); Red Blood Cells 4.13 10^6/uL (4.5-5.90); White Blood Cell 8.1 10^3/uL (4.4-10.8)
[2020-10-01 08:26] LABS: Potassium 3.8 mmol/L (3.5-5.1)
[2020-10-01 08:32] LABS: Albumin 2.2 g/dL (3.4-5.0); Calcium 7.7 mg/dL (8.5-10.1)
[2020-10-01 08:44] LABS: Bilirubin, Total 0.6 mg/dL (0.2-1.0); Total Protein 5.3 g/dL (6.4-8.2)
[2020-10-01] MEDS: AZITHROMYCIN 500MG/ 250ML 250 ML IV SCH (09:59)
[2020-10-01] MEDS: CHOLECALCIFEROL (VITD3) 2,000 UNIT CAP/TAB PO SCH (09:59)
[2020-10-01] MEDS: ASCORBIC ACID 1,000 MG TAB PO SCH (09:59)
[2020-10-01] MEDS: ENOXAPARIN SOD 100 MG/1 ML SYRINGE SC SCH ×2 (09:59→20:49)
[2020-10-01] MEDS: LISINOPRIL 10 MG TAB PO SCH (10:00)
[2020-10-01] MEDS: BUDESONIDE (INHALATION) 180 MCG IH IN SCH ×2 (10:00→19:04)
[2020-10-01] MEDS: PANTOPRAZOLE 40 MG TAB PO SCH (10:00)
[2020-10-01] MEDS: ZINC SULFATE 220mg CAP or TAB PO SCH (10:00)
[2020-10-01] MEDS: CARVEDILOL 3.125 MG TAB PO SCH ×2 (10:01→21:00)
[2020-10-01] MEDS: REMDESIVIR 100mg 100 MG in SODIUM CHL 0.9% 230 ML IV SCH (15:18)
[2020-10-01 16:00] VITALS: BP 127/63
[2020-10-01] MEDS: ALBUTEROL SULF HFA 90MCG INH 200DOSE IN PRN ×2 (16:09→19:04)
[2020-10-02] VITALS: BP 134/60
[2020-10-02] MEDS: PIPERACILLIN-TAZOB 3.375GM 100 ML IV SCH ×4 (05:53→23:50)
[2020-10-02] MEDS: ALBUTEROL SULF HFA 90MCG INH 200DOSE IN PRN ×2 (07:20→19:45)
[2020-10-02 08:00] VITALS: BP 119/58
[2020-10-02] MEDS: BUDESONIDE (INHALATION) 180 MCG IH IN SCH ×2 (10:00→19:45)
[2020-10-02 10:01] LABS: Basophils # (auto) 0.1 10 ^3/uL (0-0.2); Basophils % (auto) 0.5 % (0.0-2.0); Eosinophils # (auto) 0.1 10 ^3/uL (0-0.8); Platelet Count (auto) 24 10^3/uL (140-450)
[2020-10-02] MEDS: PANTOPRAZOLE 40 MG TAB PO SCH (10:01)
[2020-10-02] MEDS: ASCORBIC ACID 1,000 MG TAB PO SCH (10:01)
[2020-10-02] MEDS: CARVEDILOL 3.125 MG TAB PO SCH ×2 (10:01→22:41)
[2020-10-02] MEDS: AZITHROMYCIN 500MG/ 250ML 250 ML IV SCH (10:01)
[2020-10-02] MEDS: ZINC SULFATE 220mg CAP or TAB PO SCH (10:01)
[2020-10-02] MEDS: ENOXAPARIN SOD 100 MG/1 ML SYRINGE SC SCH ×2 (10:02→22:42)
[2020-10-02] MEDS: LISINOPRIL 10 MG TAB PO SCH (10:02)
[2020-10-02] MEDS: CHOLECALCIFEROL (VITD3) 2,000 UNIT CAP/TAB PO SCH (10:02)
[2020-10-02 10:04] LABS: Eosinophils % (auto) 0.6 % (0.0-7.0); Hematocrit 34.5 % (41.0-53.0); Hemoglobin 11.3 g/dL (13.5-17.5); Lymphocytes # (auto) 1.1 10 ^3/uL (0.4-5.4); Lymphocytes % (auto) 11.4 % (10.0-50.0); Mean Corpuscular Hemoglobin 27.9 pg (28.0-32.0); Mean Corpuscular Hgb Conc. 32.7 g/dL (32.0-36.0); Mean Corpuscular Volume 85.4 fL (80.0-100.0); Monocytes # (auto) 0.6 10 ^3/uL (0-1.3); Monocytes % (auto) 5.9 % (0.0-12.0); Neutrophils # (auto) 8.1 10 ^3/uL (1.6-8.6); Neutrophils % (auto) 81.6 % (37.0-80.0); Red Blood Cells 4.04 10^6/uL (4.5-5.90); Red Cell Distribution Width 18.3 % (11.8-14.3)
[2020-10-02 10:21] LABS: Albumin 2.1 g/dL (3.4-5.0); Calcium 7.7 mg/dL (8.5-10.1); Potassium 3.5 mmol/L (3.5-5.1)
[2020-10-02 10:24] LABS: BUN/Creatinine Ratio 21.9; Bilirubin, Total 0.6 mg/dL (0.2-1.0); Total Protein 5.5 g/dL (6.4-8.2)
[2020-10-02] MEDS: REMDESIVIR 100mg 100 MG in SODIUM CHL 0.9% 230 ML IV SCH (15:19)
[2020-10-02] MEDS ORDERED: FUROSEMIDE 40 MG/4 ML VIAL IV ONE (15:30)
[2020-10-02 16:00] VITALS: BP 125/78
[2020-10-03] VITALS: BP 112/60
[2020-10-03] MEDS: PIPERACILLIN-TAZOB 3.375GM 100 ML IV SCH ×3 (06:30→18:00)
[2020-10-03 06:55] LABS: Potassium 3.8 mmol/L (3.5-5.1)
[2020-10-03] MEDS: ALBUTEROL SULF HFA 90MCG INH 200DOSE IN PRN ×2 (06:55→22:34)
[2020-10-03] MEDS: BUDESONIDE (INHALATION) 180 MCG IH IN SCH ×2 (06:55→22:00)
[2020-10-03 07:02] LABS: Albumin 1.9 g/dL (3.4-5.0); BUN/Creatinine Ratio 22.5; Bilirubin, Total 0.5 mg/dL (0.2-1.0); Calcium 7.3 mg/dL (8.5-10.1)
[2020-10-03 08:00] VITALS: BP 123/67
[2020-10-03] MEDS: AZITHROMYCIN 500MG/ 250ML 250 ML IV SCH (09:02)
[2020-10-03] MEDS: ZINC SULFATE 220mg CAP or TAB PO SCH (09:02)
[2020-10-03] MEDS: CARVEDILOL 3.125 MG TAB PO SCH ×2 (09:04→22:06)
[2020-10-03] MEDS: ENOXAPARIN SOD 100 MG/1 ML SYRINGE SC SCH ×2 (09:05→21:55)
[2020-10-03] MEDS: PANTOPRAZOLE 40 MG TAB PO SCH (09:05)
[2020-10-03] MEDS: ASCORBIC ACID 1,000 MG TAB PO SCH (09:05)
[2020-10-03] MEDS: CHOLECALCIFEROL (VITD3) 2,000 UNIT CAP/TAB PO SCH (09:05)
[2020-10-03] MEDS: LISINOPRIL 10 MG TAB PO SCH (09:05)
[2020-10-03] MEDS: AZITHROMYCIN 250 MG TAB PO SCH (10:00)
[2020-10-03] MEDS: REMDESIVIR 100mg 100 MG in SODIUM CHL 0.9% 230 ML IV SCH (15:00)
[2020-10-03 16:00] VITALS: BP 123/57
[2020-10-03] MEDS: FLORASTOR (S. BOULARDII) 250 MG CAP PO SCH (22:07)
[2020-10-04] VITALS: BP_SYST 131; BP_SYST 150; BP_DIAS 71; BP_DIAS 73
[2020-10-04] MEDS: PIPERACILLIN-TAZOB 3.375GM 100 ML IV SCH ×4 (00:06→16:51)
[2020-10-04] MEDS: ALBUTEROL SULF HFA 90MCG INH 200DOSE IN PRN ×2 (07:12→20:54)
[2020-10-04] MEDS: BUDESONIDE (INHALATION) 180 MCG IH IN SCH ×2 (07:12→20:54)
[2020-10-04 08:23] VITALS: BP 101/55
[2020-10-04] MEDS: ZINC SULFATE 220mg CAP or TAB PO SCH (09:08)
[2020-10-04] MEDS: FLORASTOR (S. BOULARDII) 250 MG CAP PO SCH ×2 (09:08→22:19)
[2020-10-04] MEDS: AZITHROMYCIN 250 MG TAB PO SCH (09:09)
[2020-10-04] MEDS: PANTOPRAZOLE 40 MG TAB PO SCH (09:09)
[2020-10-04] MEDS: ENOXAPARIN SOD 100 MG/1 ML SYRINGE SC SCH ×2 (09:09→22:19)
[2020-10-04] MEDS: CHOLECALCIFEROL (VITD3) 2,000 UNIT CAP/TAB PO SCH (09:09)
[2020-10-04] MEDS: ASCORBIC ACID 1,000 MG TAB PO SCH (09:09)
[2020-10-04] MEDS: CARVEDILOL 3.125 MG TAB PO SCH ×2 (09:11→22:19)
[2020-10-04] MEDS: LISINOPRIL 10 MG TAB PO SCH (09:11)
[2020-10-04 15:41] VITALS: BP 113/57
[2020-10-04 22:00] VITALS: BP 131/71
[2020-10-05] VITALS: BP 131/71
[2020-10-05] MEDS: PIPERACILLIN-TAZOB 3.375GM 100 ML IV SCH ×5 (00:22→23:49)
[2020-10-05 01:30] VITALS: BP 131/71
[2020-10-05 01:36] VITALS: BP 131/71
[2020-10-05 06:04] VITALS: BP 131/71
[2020-10-05 08:00] VITALS: BP 126/67
[2020-10-05] MEDS: ALBUTEROL SULF HFA 90MCG INH 200DOSE IN PRN ×2 (08:43→19:39)
[2020-10-05] MEDS: BUDESONIDE (INHALATION) 180 MCG IH IN SCH ×2 (08:43→19:39)
[2020-10-05] MEDS: CARVEDILOL 3.125 MG TAB PO SCH ×2 (09:05→22:00)
[2020-10-05] MEDS: ZINC SULFATE 220mg CAP or TAB PO SCH (09:05)
[2020-10-05] MEDS: CHOLECALCIFEROL (VITD3) 2,000 UNIT CAP/TAB PO SCH (09:06)
[2020-10-05] MEDS: ASCORBIC ACID 1,000 MG TAB PO SCH (09:06)
[2020-10-05] MEDS: PANTOPRAZOLE 40 MG TAB PO SCH (09:06)
[2020-10-05] MEDS: FLORASTOR (S. BOULARDII) 250 MG CAP PO SCH ×2 (09:06→22:05)
[2020-10-05] MEDS: ENOXAPARIN SOD 100 MG/1 ML SYRINGE SC SCH ×2 (09:07→22:05)
[2020-10-05] MEDS: AZITHROMYCIN 250 MG TAB PO SCH (09:07)
[2020-10-05] MEDS: LISINOPRIL 10 MG TAB PO SCH (09:07)
[2020-10-05 16:00] VITALS: BP 127/71
[2020-10-06] VITALS: BP 124/74
[2020-10-06] MEDS: PIPERACILLIN-TAZOB 3.375GM 100 ML IV SCH ×4 (05:52→23:47)
[2020-10-06 08:00] VITALS: BP 147/69
[2020-10-06] MEDS: AZITHROMYCIN 250 MG TAB PO SCH (09:49)
[2020-10-06] MEDS: ZINC SULFATE 220mg CAP or TAB PO SCH (09:50)
[2020-10-06] MEDS: CHOLECALCIFEROL (VITD3) 2,000 UNIT CAP/TAB PO SCH (09:50)
[2020-10-06] MEDS: FLORASTOR (S. BOULARDII) 250 MG CAP PO SCH ×2 (09:50→22:45)
[2020-10-06] MEDS: LISINOPRIL 10 MG TAB PO SCH (09:50)
[2020-10-06] MEDS: PANTOPRAZOLE 40 MG TAB PO SCH (09:50)
[2020-10-06] MEDS: ENOXAPARIN SOD 100 MG/1 ML SYRINGE SC SCH ×2 (09:50→22:45)
[2020-10-06] MEDS: ASCORBIC ACID 1,000 MG TAB PO SCH (09:50)
[2020-10-06] MEDS: CARVEDILOL 3.125 MG TAB PO SCH ×2 (09:51→22:00)
[2020-10-06] MEDS: BUDESONIDE (INHALATION) 180 MCG IH IN SCH ×2 (10:25→18:57)
[2020-10-06] MEDS ORDERED: FUROSEMIDE 40 MG/4 ML VIAL IV ONE (12:15)
[2020-10-06 16:00] VITALS: BP_SYST 118; BP_SYST 150; BP_DIAS 64; BP_DIAS 80
[2020-10-06] MEDS: ERGOCALCIFEROL 50,000 UNIT(1.25MG) CAP PO SCH (18:55)
[2020-10-06] MEDS: ALBUTEROL SULF HFA 90MCG INH 200DOSE IN PRN (18:57)
[2020-10-07] VITALS: BP 132/66
[2020-10-07 01:04] VITALS: BP 132/66
[2020-10-07] MEDS: PIPERACILLIN-TAZOB 3.375GM 100 ML IV SCH ×3 (06:12→17:26)
[2020-10-07] MEDS: BUDESONIDE (INHALATION) 180 MCG IH IN SCH ×2 (06:26→19:35)
[2020-10-07] MEDS: ALBUTEROL SULF HFA 90MCG INH 200DOSE IN PRN ×2 (06:27→19:35)
[2020-10-07 07:30] LABS: Basophils # (auto) 0.1 10 ^3/uL (0-0.2); Eosinophils # (auto) 0.1 10 ^3/uL (0-0.8); Lymphocytes # (auto) 1.8 10 ^3/uL (0.4-5.4); Monocytes # (auto) 0.5 10 ^3/uL (0-1.3); Red Cell Distribution Width 17.7 % (11.8-14.3)
[2020-10-07 07:37] LABS: Hematocrit 35.8 % (41.0-53.0); Hemoglobin 11.9 g/dL (13.5-17.5); Lymphocytes % (auto) 19.1 % (10.0-50.0); Mean Corpuscular Hgb Conc. 33.1 g/dL (32.0-36.0); Mean Corpuscular Volume 84.5 fL (80.0-100.0); Monocytes % (auto) 5.8 % (0.0-12.0); Neutrophils # (auto) 6.7 10 ^3/uL (1.6-8.6); Neutrophils % (auto) 73.1 % (37.0-80.0); Platelet Count (auto) 40 10^3/uL (140-450); Red Blood Cells 4.24 10^6/uL (4.5-5.90); White Blood Cell 9.2 10^3/uL (4.4-10.8)
[2020-10-07 07:56] LABS: Albumin 2.2 g/dL (3.4-5.0); BUN/Creatinine Ratio 16.1; Bilirubin, Total 0.5 mg/dL (0.2-1.0); CRP High Sensitivity 2.84 mg/dL (< 0.3); Magnesium 2.2 mg/dL (1.6-2.6); Phosphorus 2.3 mg/dL (2.5-4.90); Total Protein 5.9 g/dL (6.4-8.2)
[2020-10-07 08:00] VITALS: BP 152/84
[2020-10-07] MEDS: FLORASTOR (S. BOULARDII) 250 MG CAP PO SCH (10:00)
[2020-10-07] MEDS: ENOXAPARIN SOD 100 MG/1 ML SYRINGE SC SCH (10:00)
[2020-10-07] MEDS: ZINC SULFATE 220mg CAP or TAB PO SCH (10:15)
[2020-10-07] MEDS: CHOLECALCIFEROL (VITD3) 2,000 UNIT CAP/TAB PO SCH (10:16)
[2020-10-07] MEDS: ASCORBIC ACID 1,000 MG TAB PO SCH (10:16)
[2020-10-07] MEDS: PANTOPRAZOLE 40 MG TAB PO SCH (10:16)
[2020-10-07] MEDS: CARVEDILOL 3.125 MG TAB PO SCH ×2 (10:16→21:16)
[2020-10-07] MEDS: LISINOPRIL 10 MG TAB PO SCH (10:16)
[2020-10-07 15:51] VITALS: BP 115/66
[2020-10-08] VITALS: BP 123/72
[2020-10-08] MEDS: PIPERACILLIN-TAZOB 3.375GM 100 ML IV SCH ×5 (05:34→23:56)
[2020-10-08 08:00] VITALS: BP 152/72
[2020-10-08] MEDS: BUDESONIDE (INHALATION) 180 MCG IH IN SCH ×3 (08:02→19:52)
[2020-10-08] MEDS: ALBUTEROL SULF HFA 90MCG INH 200DOSE IN PRN ×2 (08:02→19:52)
[2020-10-08] MEDS: PANTOPRAZOLE 40 MG TAB PO SCH (09:56)
[2020-10-08] MEDS: ZINC SULFATE 220mg CAP or TAB PO SCH (09:56)
[2020-10-08] MEDS: ASCORBIC ACID 1,000 MG TAB PO SCH (09:56)
[2020-10-08] MEDS: CARVEDILOL 3.125 MG TAB PO SCH ×2 (09:57→10:57)
[2020-10-08] MEDS: LISINOPRIL 10 MG TAB PO SCH (09:57)
[2020-10-08] MEDS: CHOLECALCIFEROL (VITD3) 2,000 UNIT CAP/TAB PO SCH (09:57)
[2020-10-08] MEDS ORDERED: POTASSIUM CHLORIDE 60 MEQ, LIDOCAINE 1% (LOCAL ANESTH.) 6 ML in SODIUM CHL 0.9% 500 ML IV ONE (13:30)
[2020-10-08] MEDS ORDERED: POTASSIUM EFFERVESENT TAB 25 MEQ GT SCH (14:00)
[2020-10-08 14:08] LABS: Basophils # (auto) 0.1 10 ^3/uL (0-0.2); Eosinophils # (auto) 0.1 10 ^3/uL (0-0.8); Hemoglobin 10.7 g/dL (13.5-17.5); Lymphocytes # (auto) 1.4 10 ^3/uL (0.4-5.4); Monocytes # (auto) 0.5 10 ^3/uL (0-1.3); Neutrophils # (auto) 5.1 10 ^3/uL (1.6-8.6); Neutrophils % (auto) 71.8 % (37.0-80.0); Platelet Count (auto) 35 10^3/uL (140-450); Red Blood Cells 3.84 10^6/uL (4.5-5.90); White Blood Cell 7.1 10^3/uL (4.4-10.8)
[2020-10-08 14:10] LABS: Eosinophils % (auto) 1.5 % (0.0-7.0); Hematocrit 32.6 % (41.0-53.0); Lymphocytes % (auto) 19.3 % (10.0-50.0); Mean Corpuscular Hemoglobin 27.9 pg (28.0-32.0); Mean Corpuscular Hgb Conc. 32.8 g/dL (32.0-36.0); Mean Corpuscular Volume 84.9 fL (80.0-100.0); Monocytes % (auto) 6.4 % (0.0-12.0); Red Cell Distribution Width 18.1 % (11.8-14.3)
[2020-10-08 14:19] LABS: Albumin 1.9 g/dL (3.4-5.0); Calcium 7.7 mg/dL (8.5-10.1); Potassium 3.7 mmol/L (3.5-5.1)
[2020-10-08 14:27] LABS: BUN/Creatinine Ratio 15.7; Bilirubin, Total 0.4 mg/dL (0.2-1.0); CRP High Sensitivity 2.63 mg/dL (< 0.3); Pre Albumin 11.3 mg/dL (20.0-40.0); Total Protein 5.4 g/dL (6.4-8.2)
[2020-10-08 14:28] LABS: Ferritin 74.4 ng/mL (10-322)
[2020-10-08 15:09] LABS: % Iron Saturation 17.7 % (20-55); Lactic Acid w/Reflex 1.7 mmol/L (0.4-2.0)
[2020-10-08 16:00] VITALS: BP 152/73
[2020-10-09] VITALS: BP 135/50
[2020-10-09] MEDS: PIPERACILLIN-TAZOB 3.375GM 100 ML IV SCH ×3 (05:37→18:07)
[2020-10-09] MEDS: ALBUTEROL SULF HFA 90MCG INH 200DOSE IN PRN ×2 (07:52→19:54)
[2020-10-09] MEDS: BUDESONIDE (INHALATION) 180 MCG IH IN SCH ×2 (07:52→19:54)
[2020-10-09 08:00] VITALS: BP 142/74
[2020-10-09] MEDS ORDERED: POTASSIUM EFFERVESENT TAB 25 MEQ GT SCH (10:00)
[2020-10-09 10:41] LABS: Free T4 (Free Thyroxine) 0.88 ng/dL (0.89-1.76)
[2020-10-09 10:42] LABS: Folate (Folic Acid) 18.98 ng/mL (5.38-24)
[2020-10-09 13:28] LABS: Hepatitis A Ab IgM Negative; Hepatitis B Core IgM Negative; Hepatitis B Surface Antigen Negative (Negative); Hepatitis C Antibody Negative (Negative)
[2020-10-09] MEDS: ASCORBIC ACID 1,000 MG TAB PO SCH (14:15)
[2020-10-09] MEDS: CHOLECALCIFEROL (VITD3) 2,000 UNIT CAP/TAB PO SCH (14:15)
[2020-10-09] MEDS: ZINC SULFATE 220mg CAP or TAB PO SCH (14:15)
[2020-10-09] MEDS: PANTOPRAZOLE 40 MG TAB PO SCH (14:15)
[2020-10-09] MEDS: LISINOPRIL 10 MG TAB PO SCH (14:16)
[2020-10-09] MEDS ORDERED: CYANOCOBALAMIN (B-12) 1000 MCG/1 ML VIAL SUBCUT ONE (15:00)
[2020-10-09] MEDS ORDERED: FUROSEMIDE 40 MG/4 ML VIAL IV ONE (15:00)
[2020-10-09 16:00] VITALS: BP 146/75
[2020-10-09] MEDS: ACETAMINOPHEN 500 MG TAB PO PRN (20:40)
[2020-10-09] MEDS: CARVEDILOL 3.125 MG TAB PO SCH (22:00)
[2020-10-10] VITALS: BP 157/84
[2020-10-10] MEDS: PIPERACILLIN-TAZOB 3.375GM 100 ML IV SCH ×5 (00:09→23:07)
[2020-10-10 06:37] LABS: Eosinophils # (auto) 0.1 10 ^3/uL (0-0.8); Monocytes # (auto) 0.6 10 ^3/uL (0-1.3); Platelet Count (auto) 32 10^3/uL (140-450)
[2020-10-10 06:43] LABS: Basophils # (auto) 0.1 10 ^3/uL (0-0.2); Basophils % (auto) 0.7 % (0.0-2.0); Eosinophils % (auto) 1.4 % (0.0-7.0); Hemoglobin 11.4 g/dL (13.5-17.5); Lymphocytes # (auto) 1.5 10 ^3/uL (0.4-5.4); Lymphocytes % (auto) 20.1 % (10.0-50.0); Mean Corpuscular Hemoglobin 27.6 pg (28.0-32.0); Mean Corpuscular Hgb Conc. 32.5 g/dL (32.0-36.0); Mean Corpuscular Volume 84.9 fL (80.0-100.0); Monocytes % (auto) 7.4 % (0.0-12.0); Neutrophils # (auto) 5.4 10 ^3/uL (1.6-8.6); Neutrophils % (auto) 70.4 % (37.0-80.0); Red Blood Cells 4.13 10^6/uL (4.5-5.90); Red Cell Distribution Width 18.2 % (11.8-14.3); White Blood Cell 7.6 10^3/uL (4.4-10.8)
[2020-10-10 06:54] LABS: Calcium 8.5 mg/dL (8.5-10.1); Potassium 3.6 mmol/L (3.5-5.1)
[2020-10-10 07:06] LABS: Albumin 2.1 g/dL (3.4-5.0); BUN/Creatinine Ratio 13.2; Bilirubin, Total 0.6 mg/dL (0.2-1.0); CRP High Sensitivity 3.59 mg/dL (< 0.3); Total Protein 5.8 g/dL (6.4-8.2)
[2020-10-10 08:00] VITALS: BP 150/80
[2020-10-10] MEDS: ZINC SULFATE 220mg CAP or TAB PO SCH (08:18)
[2020-10-10] MEDS: FUROSEMIDE 20 MG/2 ML VIAL IV SCH (08:18)
[2020-10-10] MEDS: PANTOPRAZOLE 40 MG TAB PO SCH (08:19)
[2020-10-10] MEDS: CARVEDILOL 3.125 MG TAB PO SCH ×2 (08:19→21:40)
[2020-10-10] MEDS: ASCORBIC ACID 1,000 MG TAB PO SCH (08:20)
[2020-10-10] MEDS: LISINOPRIL 10 MG TAB PO SCH (08:20)
[2020-10-10] MEDS: BUDESONIDE (INHALATION) 180 MCG IH IN SCH ×2 (09:15→19:25)
[2020-10-10] MEDS: CHOLECALCIFEROL (VITD3) 2,000 UNIT CAP/TAB PO SCH (10:00)
[2020-10-10] MEDS: CYANOCOBALAMIN 500 MCG TAB PO SCH (10:00)
[2020-10-10] MEDS: ALBUTEROL SULF HFA 90MCG INH 200DOSE IN PRN ×2 (11:01→19:26)
[2020-10-10 16:00] VITALS: BP 156/83
[2020-10-11] VITALS: BP 148/71
[2020-10-11] MEDS: PIPERACILLIN-TAZOB 3.375GM 100 ML IV SCH ×3 (05:12→17:24)
[2020-10-11 06:30] LABS: Basophils # (auto) 0.1 10 ^3/uL (0-0.2); Eosinophils # (auto) 0.1 10 ^3/uL (0-0.8); Mean Corpuscular Hemoglobin 28.2 pg (28.0-32.0); Mean Corpuscular Hgb Conc. 33.3 g/dL (32.0-36.0); Monocytes # (auto) 0.7 10 ^3/uL (0-1.3)
[2020-10-11 06:33] LABS: Basophils % (auto) 0.9 % (0.0-2.0); Eosinophils % (auto) 1.1 % (0.0-7.0); Hematocrit 34.9 % (41.0-53.0); Hemoglobin 11.6 g/dL (13.5-17.5); Lymphocytes # (auto) 1.4 10 ^3/uL (0.4-5.4); Mean Corpuscular Volume 84.6 fL (80.0-100.0); Monocytes % (auto) 7.4 % (0.0-12.0); Neutrophils # (auto) 6.6 10 ^3/uL (1.6-8.6); Neutrophils % (auto) 74.6 % (37.0-80.0); Platelet Count (auto) 36 10^3/uL (140-450); Red Blood Cells 4.13 10^6/uL (4.5-5.90); Red Cell Distribution Width 17.5 % (11.8-14.3); White Blood Cell 8.8 10^3/uL (4.4-10.8)
[2020-10-11 06:46] LABS: BUN/Creatinine Ratio 13.6; Calcium 8.2 mg/dL (8.5-10.1); Potassium 3.7 mmol/L (3.5-5.1)
[2020-10-11] MEDS: BUDESONIDE (INHALATION) 180 MCG IH IN SCH ×2 (07:46→19:06)
[2020-10-11 08:00] VITALS: BP 139/56
[2020-10-11] MEDS: PANTOPRAZOLE 40 MG TAB PO SCH (08:39)
[2020-10-11] MEDS: ASCORBIC ACID 1,000 MG TAB PO SCH (08:39)
[2020-10-11] MEDS: CYANOCOBALAMIN 500 MCG TAB PO SCH (08:39)
[2020-10-11] MEDS: CHOLECALCIFEROL (VITD3) 2,000 UNIT CAP/TAB PO SCH (08:40)
[2020-10-11] MEDS: ZINC SULFATE 220mg CAP or TAB PO SCH (08:40)
[2020-10-11] MEDS: FUROSEMIDE 20 MG/2 ML VIAL IV SCH (09:08)
[2020-10-11] MEDS: CARVEDILOL 3.125 MG TAB PO SCH ×2 (09:09→22:06)
[2020-10-11] MEDS: LISINOPRIL 10 MG TAB PO SCH (09:10)
[2020-10-11 16:00] VITALS: BP 132/70
[2020-10-12] VITALS: BP 139/66
[2020-10-12] MEDS: PIPERACILLIN-TAZOB 3.375GM 100 ML IV SCH ×4 (00:37→17:24)
[2020-10-12 08:00] VITALS: BP 154/77
[2020-10-12] MEDS: ASCORBIC ACID 1,000 MG TAB PO SCH (09:53)
[2020-10-12] MEDS: DexAMETHasone SOD PHOS 10MG/1ML VIAL INJ IV SCH (09:53)
[2020-10-12] MEDS: CHOLECALCIFEROL (VITD3) 2,000 UNIT CAP/TAB PO SCH (09:53)
[2020-10-12] MEDS: PANTOPRAZOLE 40 MG TAB PO SCH (09:54)
[2020-10-12] MEDS: LISINOPRIL 10 MG TAB PO SCH (09:54)
[2020-10-12] MEDS: CARVEDILOL 3.125 MG TAB PO SCH ×2 (09:54→22:12)
[2020-10-12] MEDS: CYANOCOBALAMIN 500 MCG TAB PO SCH (09:54)
[2020-10-12] MEDS: ZINC SULFATE 220mg CAP or TAB PO SCH (09:54)
[2020-10-12] MEDS: FUROSEMIDE 20 MG/2 ML VIAL IV SCH (09:57)
[2020-10-12 16:00] VITALS: BP 123/64
[2020-10-12] MEDS: ALBUTEROL SULF HFA 90MCG INH 200DOSE IN PRN (19:54)
[2020-10-12] MEDS: BUDESONIDE (INHALATION) 180 MCG IH IN SCH (19:54)
[2020-10-12] MEDS: ACETAMINOPHEN 500 MG TAB PO PRN (22:12)
[2020-10-13] VITALS: BP 150/89
[2020-10-13] MEDS: PIPERACILLIN-TAZOB 3.375GM 100 ML IV SCH ×4 (00:17→17:50)
[2020-10-13 07:01] LABS: Basophils # (auto) 0 10 ^3/uL (0-0.2); Eosinophils # (auto) 0 10 ^3/uL (0-0.8); Lymphocytes # (auto) 0.9 10 ^3/uL (0.4-5.4); Mean Corpuscular Volume 85.1 fL (80.0-100.0); Monocytes # (auto) 0.5 10 ^3/uL (0-1.3); White Blood Cell 6.1 10^3/uL (4.4-10.8)
[2020-10-13 07:03] LABS: Basophils % (auto) 0.6 % (0.0-2.0); Hematocrit 29.9 % (41.0-53.0); Hemoglobin 10.1 g/dL (13.5-17.5); Lymphocytes % (auto) 15.2 % (10.0-50.0); Mean Corpuscular Hemoglobin 28.7 pg (28.0-32.0); Mean Corpuscular Hgb Conc. 33.7 g/dL (32.0-36.0); Monocytes % (auto) 7.5 % (0.0-12.0); Neutrophils # (auto) 4.7 10 ^3/uL (1.6-8.6); Neutrophils % (auto) 76.7 % (37.0-80.0); Platelet Count (auto) 46 10^3/uL (140-450); Red Blood Cells 3.52 10^6/uL (4.5-5.90); Red Cell Distribution Width 16.7 % (11.8-14.3)
[2020-10-13] MEDS: ALBUTEROL SULF HFA 90MCG INH 200DOSE IN PRN ×2 (07:05→21:14)
[2020-10-13] MEDS: BUDESONIDE (INHALATION) 180 MCG IH IN SCH ×2 (07:05→21:13)
[2020-10-13 07:30] LABS: Albumin 1.9 g/dL (3.4-5.0); Calcium 8.4 mg/dL (8.5-10.1); Magnesium 2.3 mg/dL (1.6-2.6); Potassium 4.1 mmol/L (3.5-5.1)
[2020-10-13 07:36] LABS: BUN/Creatinine Ratio 22.2; Bilirubin, Total 0.3 mg/dL (0.2-1.0); Phosphorus 2.4 mg/dL (2.5-4.90); Total Protein 5.4 g/dL (6.4-8.2)
[2020-10-13 07:51] VITALS: BP 150/87
[2020-10-13] MEDS: DexAMETHasone SOD PHOS 10MG/1ML VIAL INJ IV SCH (10:03)
[2020-10-13] MEDS: ASCORBIC ACID 1,000 MG TAB PO SCH (10:05)
[2020-10-13] MEDS: PANTOPRAZOLE 40 MG TAB PO SCH (10:05)
[2020-10-13] MEDS: ZINC SULFATE 220mg CAP or TAB PO SCH (10:05)
[2020-10-13] MEDS: CYANOCOBALAMIN 500 MCG TAB PO SCH (10:05)
[2020-10-13] MEDS: CHOLECALCIFEROL (VITD3) 2,000 UNIT CAP/TAB PO SCH (10:06)
[2020-10-13] MEDS: FUROSEMIDE 20 MG/2 ML VIAL IV SCH (10:08)
[2020-10-13] MEDS: LISINOPRIL 10 MG TAB PO SCH (10:09)
[2020-10-13] MEDS: CARVEDILOL 3.125 MG TAB PO SCH ×2 (10:09→21:35)
[2020-10-13] MEDS: ERGOCALCIFEROL 50,000 UNIT(1.25MG) CAP PO SCH (12:15)
[2020-10-13 15:51] VITALS: BP 146/72
[2020-10-14] VITALS: BP 107/61
[2020-10-14] MEDS: PIPERACILLIN-TAZOB 3.375GM 100 ML IV SCH ×4 (00:02→18:00)
[2020-10-14] MEDS: BUDESONIDE (INHALATION) 180 MCG IH IN SCH ×2 (06:50→20:10)
[2020-10-14] MEDS: ALBUTEROL SULF HFA 90MCG INH 200DOSE IN PRN (06:50)
[2020-10-14 08:00] VITALS: BP 147/75
[2020-10-14] MEDS: FUROSEMIDE 20 MG/2 ML VIAL IV SCH (10:00)
[2020-10-14] MEDS: CARVEDILOL 3.125 MG TAB PO SCH ×2 (10:00→21:29)
[2020-10-14] MEDS: ASCORBIC ACID 1,000 MG TAB PO SCH (11:00)
[2020-10-14] MEDS: PANTOPRAZOLE 40 MG TAB PO SCH (11:00)
[2020-10-14] MEDS: CYANOCOBALAMIN 500 MCG TAB PO SCH (11:00)
[2020-10-14] MEDS: LISINOPRIL 10 MG TAB PO SCH (11:00)
[2020-10-14] MEDS: DexAMETHasone SOD PHOS 10MG/1ML VIAL INJ IV SCH (11:00)
[2020-10-14] MEDS: CHOLECALCIFEROL (VITD3) 2,000 UNIT CAP/TAB PO SCH (11:00)
[2020-10-14] MEDS: ZINC SULFATE 220mg CAP or TAB PO SCH (11:00)
[2020-10-14 16:00] VITALS: BP 145/78
[2020-10-15] VITALS: BP 151/79
[2020-10-15] MEDS: PIPERACILLIN-TAZOB 3.375GM 100 ML IV SCH ×4 (00:17→18:00)
[2020-10-15 08:00] VITALS: BP 125/75
[2020-10-15] MEDS: ALBUTEROL SULF HFA 90MCG INH 200DOSE IN PRN ×2 (08:03→18:58)
[2020-10-15] MEDS: BUDESONIDE (INHALATION) 180 MCG IH IN SCH ×2 (08:03→18:58)
[2020-10-15] MEDS: CARVEDILOL 3.125 MG TAB PO SCH ×2 (10:00→21:42)
[2020-10-15] MEDS: CYANOCOBALAMIN 500 MCG TAB PO SCH (10:00)
[2020-10-15] MEDS: CHOLECALCIFEROL (VITD3) 2,000 UNIT CAP/TAB PO SCH (10:00)
[2020-10-15] MEDS: ZINC SULFATE 220mg CAP or TAB PO SCH (10:00)
[2020-10-15] MEDS: DexAMETHasone SOD PHOS 10MG/1ML VIAL INJ IV SCH (10:00)
[2020-10-15] MEDS: PANTOPRAZOLE 40 MG TAB PO SCH (10:00)
[2020-10-15] MEDS: FUROSEMIDE 20 MG/2 ML VIAL IV SCH (10:00)
[2020-10-15] MEDS: ASCORBIC ACID 1,000 MG TAB PO SCH (10:00)
[2020-10-15] MEDS: LISINOPRIL 10 MG TAB PO SCH (10:00)
[2020-10-15 15:55] VITALS: BP 154/92
[2020-10-16] VITALS: BP 156/77
[2020-10-16] MEDS: PIPERACILLIN-TAZOB 3.375GM 100 ML IV SCH ×5 (05:38→23:06)
[2020-10-16 07:24] LABS: Basophils # (auto) 0 10 ^3/uL (0-0.2); Basophils % (auto) 0.1 % (0.0-2.0); Eosinophils # (auto) 0 10 ^3/uL (0-0.8); Hemoglobin 10.6 g/dL (13.5-17.5); Lymphocytes # (auto) 1.2 10 ^3/uL (0.4-5.4); Lymphocytes % (auto) 13.2 % (10.0-50.0); Mean Corpuscular Hemoglobin 27.9 pg (28.0-32.0); Mean Corpuscular Volume 84.6 fL (80.0-100.0); Monocytes # (auto) 0.7 10 ^3/uL (0-1.3); Monocytes % (auto) 7.7 % (0.0-12.0); Nucleated Red Blood Cells % 0.1 %; Platelet Count (auto) 92 10^3/uL (140-450); Red Blood Cells 3.79 10^6/uL (4.5-5.90); Red Cell Distribution Width 17.2 % (11.8-14.3); White Blood Cell 8.9 10^3/uL (4.4-10.8)
[2020-10-16 07:47] VITALS: BP 145/74
[2020-10-16] MEDS: FUROSEMIDE 20 MG/2 ML VIAL IV SCH (08:29)
[2020-10-16] MEDS: DexAMETHasone SOD PHOS 10MG/1ML VIAL INJ IV SCH (08:29)
[2020-10-16] MEDS: ZINC SULFATE 220mg CAP or TAB PO SCH (08:29)
[2020-10-16] MEDS: CARVEDILOL 3.125 MG TAB PO SCH ×2 (08:30→23:05)
[2020-10-16] MEDS: ASCORBIC ACID 1,000 MG TAB PO SCH (08:30)
[2020-10-16] MEDS: CYANOCOBALAMIN 500 MCG TAB PO SCH (08:30)
[2020-10-16] MEDS: PANTOPRAZOLE 40 MG TAB PO SCH (08:30)
[2020-10-16] MEDS: CHOLECALCIFEROL (VITD3) 2,000 UNIT CAP/TAB PO SCH (08:31)
[2020-10-16] MEDS: LISINOPRIL 10 MG TAB PO SCH (08:31)
[2020-10-16] MEDS: FLORASTOR (S. BOULARDII) 250 MG CAP PO SCH (12:42)
[2020-10-16 13:36] LABS: Alanine Aminotransferase 21 U/L (16-61); Alkaline Phosphatase 60 U/L (45-117); Anion Gap 9 (5-15); Aspartate Aminotransferase 13 U/L (15-37); BUN/Creatinine Ratio 27.5; Blood Urea Nitrogen 36 mg/dL (7-18); Carbon Dioxide 28 mmol/L (21-32); Chloride 105 mmol/L (98-107); GFR African American 67 mL/min; GFR Non-African American 55 mL/min; Glucose 177 mg/dL (74-106); Potassium 4.1 mmol/L (3.5-5.1); Sodium 142 mmol/L (136-145)
[2020-10-16 13:37] LABS: Albumin 2.4 g/dL (3.4-5.0); Bilirubin, Total 0.6 mg/dL (0.2-1.0); Calcium 8.6 mg/dL (8.5-10.1); Magnesium 2.2 mg/dL (1.6-2.6); Phosphorus 3.2 mg/dL (2.5-4.90); Total Protein 6.1 g/dL (6.4-8.2)
[2020-10-16 16:00] VITALS: BP 127/51
[2020-10-16] MEDS: BUDESONIDE (INHALATION) 180 MCG IH IN SCH (22:27)
[2020-10-16] MEDS: ALBUTEROL SULF HFA 90MCG INH 200DOSE IN PRN (22:27)
[2020-10-16 23:58] VITALS: BP 155/80
[2020-10-17] MEDS: PIPERACILLIN-TAZOB 3.375GM 100 ML IV SCH ×4 (06:38→23:19)
[2020-10-17 07:05] LABS: Basophils # (auto) 0 10 ^3/uL (0-0.2); Basophils % (auto) 0.1 % (0.0-2.0); Eosinophils # (auto) 0 10 ^3/uL (0-0.8); Eosinophils % (auto) 0.1 % (0.0-7.0); Hemoglobin 10.7 g/dL (13.5-17.5); Lymphocytes # (auto) 1.3 10 ^3/uL (0.4-5.4); Lymphocytes % (auto) 16.2 % (10.0-50.0); Mean Corpuscular Hemoglobin 28.3 pg (28.0-32.0); Mean Corpuscular Hgb Conc. 33.5 g/dL (32.0-36.0); Mean Corpuscular Volume 84.6 fL (80.0-100.0); Monocytes # (auto) 0.7 10 ^3/uL (0-1.3); Neutrophils # (auto) 6.1 10 ^3/uL (1.6-8.6); Neutrophils % (auto) 74.6 % (37.0-80.0); Nucleated Red Blood Cells % 0.2 %; Platelet Count (auto) 104 10^3/uL (140-450); Red Blood Cells 3.79 10^6/uL (4.5-5.90); Red Cell Distribution Width 17.2 % (11.8-14.3); White Blood Cell 8.1 10^3/uL (4.4-10.8)
[2020-10-17] MEDS: ALBUTEROL SULF HFA 90MCG INH 200DOSE IN PRN ×2 (07:17→19:05)
[2020-10-17] MEDS: BUDESONIDE (INHALATION) 180 MCG IH IN SCH ×2 (07:17→19:05)
[2020-10-17 07:24] LABS: Calcium 8.6 mg/dL (8.5-10.1)
[2020-10-17 07:26] LABS: BUN/Creatinine Ratio 29.5
[2020-10-17 08:00] VITALS: BP 140/73
[2020-10-17] MEDS: DexAMETHasone SOD PHOS 10MG/1ML VIAL INJ IV SCH (08:28)
[2020-10-17] MEDS: ZINC SULFATE 220mg CAP or TAB PO SCH (08:29)
[2020-10-17] MEDS: CARVEDILOL 3.125 MG TAB PO SCH ×2 (08:31→23:17)
[2020-10-17] MEDS: PANTOPRAZOLE 40 MG TAB PO SCH (08:31)
[2020-10-17] MEDS: CYANOCOBALAMIN 500 MCG TAB PO SCH (08:31)
[2020-10-17] MEDS: CHOLECALCIFEROL (VITD3) 2,000 UNIT CAP/TAB PO SCH (08:32)
[2020-10-17] MEDS: ASCORBIC ACID 1,000 MG TAB PO SCH (08:32)
[2020-10-17] MEDS: LISINOPRIL 10 MG TAB PO SCH (08:33)
[2020-10-17] MEDS: FLORASTOR (S. BOULARDII) 250 MG CAP PO SCH (10:00)
[2020-10-17 16:00] VITALS: BP 143/67
[2020-10-18] VITALS: BP 145/78
[2020-10-18] MEDS: PIPERACILLIN-TAZOB 3.375GM 100 ML IV SCH ×3 (06:00→18:00)
[2020-10-18 08:00] VITALS: BP 139/73
[2020-10-18] MEDS: DexAMETHasone SOD PHOS 10MG/1ML VIAL INJ IV SCH (10:00)
[2020-10-18] MEDS: BUDESONIDE (INHALATION) 180 MCG IH IN SCH (10:05)
[2020-10-18] MEDS: FLORASTOR (S. BOULARDII) 250 MG CAP PO SCH (10:06)
[2020-10-18] MEDS: CARVEDILOL 3.125 MG TAB PO SCH (10:06)
[2020-10-18] MEDS: ZINC SULFATE 220mg CAP or TAB PO SCH (10:06)
[2020-10-18] MEDS: CYANOCOBALAMIN 500 MCG TAB PO SCH (10:07)
[2020-10-18] MEDS: CHOLECALCIFEROL (VITD3) 2,000 UNIT CAP/TAB PO SCH (10:07)
[2020-10-18] MEDS: PANTOPRAZOLE 40 MG TAB PO SCH (10:07)
[2020-10-18] MEDS: ASCORBIC ACID 1,000 MG TAB PO SCH (10:07)
[2020-10-18] MEDS: LISINOPRIL 10 MG TAB PO SCH (10:08)
[2020-10-18 16:00] VITALS: BP 124/65
== END 2020-10-18 19:43 | disposition hospice, home (50) | DRG 177 ==
LOC: ER 16:15 → TELE 16:16 → TELE-WESTW 09-29 23:47
PROVIDERS: ADMIT Family Medicine; ATTEND Internal Medicine
PROC: XW033E5 Introduction of Remdesivir Anti-infective into Peripheral Vein, Percutaneous Approach, New Technology Group 5 (ICD-10-PCS; principal; 2020-09-29)
DX: U07.1 COVID-19 (principal); J12.82 Pneumonia due to coronavirus disease 2019; I50.33 Acute on chronic diastolic (congestive) heart failure; J96.21 Acute and chronic respiratory failure with hypoxia; R04.2 Hemoptysis; J44.0 Chronic obstructive pulmonary disease with (acute) lower respiratory infection; E46 Unspecified protein-calorie malnutrition; D69.6 Thrombocytopenia, unspecified; D64.9 Anemia, unspecified; E86.0 Dehydration; I48.91 Unspecified atrial fibrillation; E83.51 Hypocalcemia; E78.5 Hyperlipidemia, unspecified; Z51.5 Encounter for palliative care; Z66 Do not resuscitate; E11.65 Type 2 diabetes mellitus with hyperglycemia; I11.0 Hypertensive heart disease with heart failure; J84.10 Pulmonary fibrosis, unspecified; Z68.26 Body mass index [BMI] 26.0-26.9, adult; N40.0 Benign prostatic hyperplasia without lower urinary tract symptoms; Z79.01 Long term (current) use of anticoagulants; Z79.899 Other long term (current) drug therapy; Z80.42 Family history of malignant neoplasm of prostate; Z87.891 Personal history of nicotine dependence
CPT/HCPCS: 36415; 71045; 71275; 80048; 80053; 80074; 82040; 82306; 82607; 82668; 82728; 82746; 82962; 83036; 83540; 83550; 83605; 83615; 83735; 83880; 84100; 84439; 84443; 84484; 85025; 85045; 85302; 85379; 85610; 85652; 85730; 86141; 86703; 87040; 87081; 87426; 87493; 87804; 93005; 94640; 96365; 96366; 96367; 96368; 96375; 97110; 97116; 97163; 97530; G0378; J0696; J1100; J2001; J2543; J3490